=== PATIENT | male | born 1935 | race Caucasian/White ===

== ENCOUNTER → 2017-05-03 11:35 | Outpatient (POV) | payer MEDICARE, OTHER, SELFPAY | PROVIDERS: Visit Provider Nurse Practitioner Acute Care | DX: Z00.00 Encounter for general adult medical examination without abnormal findings (principal) ==

== ENCOUNTER → 2017-05-11 12:06 | Outpatient (CLI) | payer MEDICARE, OTHER, SELFPAY ==
[2017-05-11 12:11] LABS: Microscopic, Urine URINE MICROSCOPIC (MICROSCOPIC)
[2017-05-11 12:29] LABS: Basophils % 0.4 % (0.1-2.0); Eosinophils # 0.1 K/mm3 (0.0-0.4); Eosinophils % 0.9 % (0.1-12.0); Hematocrit 41.5 % (42.0-52.0); Hemoglobin 13.7 g/dL (14.1-18.0); Lymphocytes % 12.6 K/mm3 (10-50); Mean Corpuscular HGB Conc 33.1 g/dL (31.8-35.4); Mean Corpuscular Hemoglobin 29.3 pg (27.0-31.2); Mean Corpuscular Volume 88.7 fl (80-94); Mean Platelet Volume 9.1 fl (7.4-10.4); Monocytes # 0.5 K/mm3 (0.1-1.0); Monocytes % 6.5 % (1.7-9.3); Neutrophils # 6.1 K/mm3 (1.8-7.8); Neutrophils % 79.6 % (37.0-80.0); Platelet Count 214 K/mm3 (142-424); Red Blood Count 4.68 M/mm3 (4.60-6.20); Red Cell Distribution Width 13.3 % (11.5-17.5); White Blood Count 7.7 K/mm3 (4.8-10.8)
[2017-05-11 14:33] LABS: Appearance,Urine CLEAR (Clear); Bilirubin,Urine Negative (Negative); Blood, Urine Negative (Negative); Color,Urine YELLOW (Yellow); Glucose,Urine (UA) Negative (Negative); Ketones,Urine Negative (Negative); Leukocyte Esterase,Urine TRACE (Negative); Nitrate,Urine Negative (Negative); Protein,Urine Negative (Negative); Specific Gravity, Urine 1.025 (1.005-1.030); Urobilinogen,Urine 0.2 EU/dl (0.2)
[2017-05-11 15:39] LABS: Bacteria,Urine 1+ /lpf; RBC,Urine Occasional #/hpf (0-3); Squamous Epithelial Cell,Urine Occasional #/hpf (0-5); WBC,Urine Occasional #/hpf (0-3)
[2017-05-11 15:40] LABS: Hyaline Casts,Urine Occasional #/lpf (0)
[2017-05-11 16:03] LABS: Albumin Level 3.6 gm/dL (3.4-5.0); Anion Gap 15.4 mEq/L (5-15); Blood Urea Nitrogen 23 mg/dL (7-18); Calcium 8.8 mg/dL (8.5-10.1); Carbon Dioxide 23 mmol/L (21.0-32.0); Chloride 103 mmol/L (98-107); Estimated Glomerular Filt Rate 36 ml/min (>60); GFR (African American) 44 ML/MIN (>60); Glucose 105 mg/dL (74-106); Phosphorous 3.7 mg/dL (2.4-4.9); Potassium 4.4 mmoL/L (3.5-5.1); Sodium 137 mmol/L (136-145)
[2017-05-11 16:09] LABS: Creatinine,Urine Random 317 mg/dL (20-320); Total Protein,Urine Random 28.6 mg/dL (0.0-11.9)
[2017-05-12 13:21] LABS: Parathyroid Hormone Intact 41 pg/mL (15-65); Vitamin D 25 Hydroxy 55.7 ng/mL (30.0-100.0)
== END ==
PROVIDERS: Visit Provider Internal Medicine Nephrology
DX: N18.3 Chronic kidney disease, stage 3 (moderate) (principal)
CPT/HCPCS: 36415; 80069; 81001; 82570; 82652; 83970; 84155; 85025

== ENCOUNTER → 2017-06-03 07:52 | Outpatient (CLI) | payer MEDICARE, OTHER, SELFPAY ==
--- NOTE | 2017-06-03 07:56 | NM_ITS ---
History and Indications: Hypertension, tobacco use family history, chest pain shortness of breath and fatigue Procedure: Patient received a 0.4 mg of Lexiscan, resting heart rate was 68 bpm, resting blood pressure 161/72, with Lexiscan maximum heart rate achieved was 89 beats per which is less than 85 predicted heart rate and a blood pressure was 145/76. With Lexiscan complaint of malaise Electrocardiogram: Resting electrocardiogram showed sinus rhythm left bundle-branch block, with Lexiscan less than 1.[address] segment depression noted from the baseline EKG. The EKG portion of the Lexiscan Myoview is nondiagnostic. Cardiac stress and resting SPECT images: Cardiac stress and resting SPECT images were obtained using technetium 99 Myoview 10.6 mCi at rest and 31.9 mCi at stress, gated SPECT further analysis of segmental wall motion and calculation of the ejection fraction also done. Cardiac stress and rest images show a mild fixed defect anteroseptally and inferiorly with normal contractility gated SPECT is likely secondary to left bundle-branch block and soft tissue attenuation, no reversible ischemia seen. Computer derived ejection fraction is 50% with no obvious regional wall motion abnormality, right ventricle is normal size and contractility Conclusion: 1. The EKG portion of the Lexiscan Myoview is nondiagnostic. 2. No obvious scintigraphic evidence of reversible ischemia seen, ejection fraction 50% with no obvious regional wall motion abnormality, right ventricle is normal size and contractility.
--- NOTE | 2017-06-03 11:27 | HMH.ITSHM ---
flomax prilosec d3 amlodipine paxil
== END ==
PROVIDERS: Family Provider Family Medicine; PCP Family Medicine; Visit Provider Physician Assistant
DX: R07.9 Chest pain, unspecified (principal); R06.00 Dyspnea, unspecified
CPT/HCPCS: 78452; 93017; A9502; J2785

== ENCOUNTER → 2017-07-06 12:54 | Outpatient (CLI) | payer MEDICARE, OTHER, SELFPAY ==
--- NOTE | 2017-07-06 13:18 | XR_ITS ---
XR chest 2V HISTORY: ITS.REASON: SHORTNESS OF BREATH ORDERING PHYSICIAN: Prasad Burgos MD PATIENT AGE: 81 years FINDINGS: There is mild cardiomegaly without failure. No lobar consolidation or collapse. On the lateral view there is a nodular density overlying the T5 vertebral body not readily apparent on the frontal view possibly related to a granuloma. There are coronary artery calcifications noted. No acute bony finding. There is hyperinflation with attenuation of peripheral pulmonary vessels suggesting COPD IMPRESSION: 1. COPD with coronary artery disease 2. Possible upper lobe nodule as seen on the lateral view. The chest may confirm. Prior chest CT of 01/23/2015. Show a small calcified granuloma in the right upper lobe posteriorly possibly corresponding to this abnormality however that nodule measured 4 mm. Nodule on today's exam measuring approximate 8 mm. 3. No acute finding
== END ==
PROVIDERS: PCP Family Medicine; Visit Provider Family Medicine
DX: R06.02 Shortness of breath (principal)
CPT/HCPCS: 71046

== ENCOUNTER → 2017-07-20 07:30 | Outpatient (CLI) | payer MEDICARE, OTHER, SELFPAY ==
--- NOTE | 2017-07-20 07:32 | CT_ITS ---
CT chest wo con HISTORY: Follow-up lung nodule ITS.REASON: LUNG NODULE ORDERING PHYSICIAN: Prasad Burgos MD PATIENT AGE: 81 years Technique: Axial images obtained. Sagittal and coronal reformatted images are also generated and reviewed. All CT scans at the facility use one or more dose reduction, viz: automated exposure control; ma/kV adjustment per patient size (including targeted exams where dose is matched to indication; i.e. head); or iterative reconstruction technique. CONTRAST: None COMPARISON: 01/23/2015 FINDINGS: There is vascular ectasia of the great vessels. Extensive coronary artery calcification is present. No evidence of aortic aneurysm or pericardial effusion. There is mild cardiomegaly. No mediastinal or hilar mass or adenopathy. There is hyperinflation with attenuation of peripheral pulmonary vessels consistent with COPD Biapical fibrotic changes are noted there is asymmetric density in the right apex having a similar appearance when compared to the previous exam. There are paraseptal and centrilobular emphysematous changes. There is a 7 x 6 mm lobular nodule in the central aspect of the right upper lobe. This does appear to be containing some peripheral calcification and is not significantly changed.. A 4 mm nodule present in the right upper lobe inferiorly unchanged and a partially calcified 5 mm nodule is present in the right middle lobe laterally unchanged. There is a 3 mm noncalcified nodule in the left upper lobe centrally and a 3 mm nodule in the left upper lobe medially which may contain central calcification unchanged. No new nodules are evident.. No effusions or infiltrates. Upper abdominal images once again show hyperdensity in the posterior aspect of the gallbladder suggesting stones. There is a 7 mm sclerotic focus in the T5 vertebral body which is more prominent. Etiology indeterminate. May be related to bone island or a solitary sclerotic metastatic focus. IMPRESSION: 1. No change in the small pulmonary nodules the largest in the central aspect of the right upper lobe a 7 x 6 mm. This does appear to contain some peripheral calcification and may be due to granuloma 2. COPD with centrilobular and paraseptal emphysematous changes along with biapical fibrosis 3. Enlarging sclerotic focus in the T5 vertebral body which could be due to enlarging bone island or a solitary blastic metastatic focus. 4. Cholelithiasis suspected. 5. Coronary artery disease
== END ==
PROVIDERS: Family Provider Family Medicine; PCP Family Medicine; Visit Provider Family Medicine
DX: R91.1 Solitary pulmonary nodule (principal)
CPT/HCPCS: 71250

== ENCOUNTER → 2017-08-04 08:45 | Outpatient (CLI) | payer MEDICARE, OTHER, SELFPAY ==
--- NOTE | 2017-08-04 08:49 | MR_ITS ---
MR thoracic spine wo con HISTORY: Sclerotic lesion of the thoracic spine ITS.REASON: LESION OF VERTEBRA ORDERING PHYSICIAN: Prasad Burgos MD PATIENT AGE: 81 years Comparison: 07/20/2017 TECHNIQUE: Standard multiplanar multiecho sequences are performed without contrast. 3-D MIP and myelographic images are also rendered and reviewed FINDINGS: There is normal alignment. No fracture or dislocation. No disc herniation or canal stenosis. There is heterogeneous signal intensity within the vertebral bodies consistent with red marrow replacement. There is a T1 and T2 hyperintense lesion involving the T11 vertebral body measuring 17 mm consistent with a light, or lipid rich hemangioma. No acute fracture or compression change. There is a 8mm T1 and T2 hypointense lesion involving the T5 vertebral body corresponding to the abnormality noted on the chest CT. This is without surrounding edema and probably related to a bone island. No other lesions evident within the thoracic spine. IMPRESSION: 1. 8 mm T1 and T2 hypointense lesion of the T5 vertebral body which may be related to a bone island with dense calcification. Consider [address] follow-up to confirm stability. 2. Otherwise essentially negative thoracic spine MRI
== END ==
PROVIDERS: Family Provider Family Medicine; PCP Family Medicine; Visit Provider Family Medicine
DX: M89.9 Disorder of bone, unspecified (principal)
CPT/HCPCS: 72146

== ENCOUNTER → 2017-08-30 10:17 | Outpatient (CLI) | payer MEDICARE, OTHER, SELFPAY | PROVIDERS: Visit Provider Urology | DX: Z12.5 Encounter for screening for malignant neoplasm of prostate (principal); R97.20 Elevated prostate specific antigen [PSA] | CPT/HCPCS: 36415; G0103 ==

== ENCOUNTER → 2018-05-16 11:41 | Outpatient (CLI) | payer MEDICARE, OTHER, SELFPAY ==
[2018-05-16 12:06] LABS: Basophils # 0.1 K/mm3 (0-0.2); Basophils % 0.9 % (0.1-2.0); Eosinophils # 0.3 K/mm3 (0.0-0.4); Eosinophils % 3.5 % (0.1-12.0); Hematocrit 44.9 % (42.0-52.0); Hemoglobin 14.2 g/dL (14.1-18.0); Lymphocytes # 1.3 K/mm3 (0.7-4.5); Lymphocytes % 14.8 % (10-50); Mean Corpuscular HGB Conc 31.7 g/dL (31.8-35.4); Mean Corpuscular Hemoglobin 29.3 pg (27.0-31.2); Mean Corpuscular Volume 92.4 fl (80-94); Monocytes # 0.5 K/mm3 (0.1-1.0); Monocytes % 5.3 % (1.7-9.3); Neutrophils # 6.5 K/mm3 (1.8-7.8); Neutrophils % 75.5 % (37.0-80.0); Platelet Count 232 K/mm3 (142-424); Red Blood Count 4.85 M/mm3 (4.60-6.20); Red Cell Distribution Width 13.5 % (11.5-17.5); White Blood Count 8.6 K/mm3 (4.8-10.8)
[2018-05-16 16:27] LABS: Anion Gap 13.3 mEq/L (5-15); Blood Urea Nitrogen 21 mg/dL (7-18); Calcium 9.1 mg/dL (8.5-10.1); Carbon Dioxide 25 mmol/L (21.0-32.0); Chloride 106 mmol/L (98-107); Creatinine,Serum 1.67 mg/dL (0.70-1.30); Estimated Glomerular Filt Rate 40 ml/min (>60); GFR (African American) 48 ML/MIN (>60); Glucose 98 mg/dL (74-106); Potassium 4.3 mmoL/L (3.5-5.1); Sodium 140 mmol/L (136-145)
== END ==
PROVIDERS: Visit Provider Physician Assistant
DX: N18.3 Chronic kidney disease, stage 3 (moderate) (principal); R06.02 Shortness of breath; I25.119 Atherosclerotic heart disease of native coronary artery with unspecified angina pectoris
CPT/HCPCS: 36415; 80048; 85025

== ENCOUNTER → 2018-05-19 07:07 | Outpatient (CLI) | payer MEDICARE, OTHER, SELFPAY ==
[2018-05-19 08:14] LABS: Basophils # 0.1 K/mm3 (0-0.2); Basophils % 0.9 % (0.1-2.0); Eosinophils # 0.4 K/mm3 (0.0-0.4); Eosinophils % 5.5 % (0.1-12.0); Hematocrit 44.7 % (42.0-52.0); Lymphocytes # 1.3 K/mm3 (0.7-4.5); Lymphocytes % 16.3 % (10-50); Mean Corpuscular HGB Conc 33.6 g/dL (31.8-35.4); Mean Corpuscular Hemoglobin 30.5 pg (27.0-31.2); Mean Corpuscular Volume 90.7 fl (80-94); Mean Platelet Volume 8.1 fl (7.4-10.4); Monocytes # 0.5 K/mm3 (0.1-1.0); Monocytes % 6.5 % (1.7-9.3); Neutrophils # 5.6 K/mm3 (1.8-7.8); Neutrophils % 70.8 % (37.0-80.0); Platelet Count 217 K/mm3 (142-424); Red Blood Count 4.93 M/mm3 (4.60-6.20); Red Cell Distribution Width 13.6 % (11.5-17.5); White Blood Count 7.9 K/mm3 (4.8-10.8)
[2018-05-19 09:42] LABS: Anion Gap 11.5 mEq/L (5-15); Blood Urea Nitrogen 16 mg/dL (7-18); Carbon Dioxide 27 mmol/L (21.0-32.0); Chloride 107 mmol/L (98-107); Creatinine,Serum 1.55 mg/dL (0.70-1.30); Estimated Glomerular Filt Rate 43 ml/min (>60); GFR (African American) 52 ML/MIN (>60); Glucose 122 mg/dL (74-106); Potassium 4.5 mmoL/L (3.5-5.1); Sodium 141 mmol/L (136-145)
== END ==
PROVIDERS: Visit Provider Internal Medicine
DX: Z95.5 Presence of coronary angioplasty implant and graft (principal); I25.10 Atherosclerotic heart disease of native coronary artery without angina pectoris; Z87.891 Personal history of nicotine dependence
CPT/HCPCS: 36415; 80048; 85025

== ENCOUNTER 2018-06-06 14:37 | Outpatient (RCR) | payer MEDICARE, OTHER, SELFPAY | END 2018-09-23 13:16 | disposition home or self-care (01) | LOC: PT 14:37 | PROVIDERS: Visit Provider Internal Medicine | DX: Z95.5 Presence of coronary angioplasty implant and graft (principal) | CPT/HCPCS: 93798 ==

== ENCOUNTER → 2018-06-07 14:37 | Outpatient (CLI) | payer MEDICARE, OTHER, SELFPAY ==
--- NOTE | 2018-06-07 14:38 | CA_ITS ---
PROCEDURE: 2-D M-mode and color Doppler study INDICATIONS FOR THE TEST: Chest pain + COPD Heart Murmur Tobacco Smoking+ Palpitations Fatigue+ Syncope Edema Hypertension+Diabetes Mellitus Rheumatic Fever SOB+[place] Obesity Hyperlipidemia+ Family History HD Additional History CYN, CAD, CKD, STENTS PATIENT INFORMATION HEIGHT: 67 WEIGHT:161 GENDER: Male B/P:140/69 2-D/M-MODE INTERPRETATION: 2-D MEASUREMENTS OBSERVED VALUES IN CMS Right Ventricular Dimension (RVDd) 2.0 Interventricular Septum (Thickness)(IVsd) 1.1 Left Ventricular Internal Dimensions(LVIDd) 5.1 Left Ventricular Posterior Wall (Thickness)(LVPWd) 1.0 Aortic Root 3.3 Aortic Cusp Separation 1.3 Left Atrial Dimensions (LAD) 4.0 2D 1. Left atrium is mildly enlarged, left ventricle is normal size, mild concentric left ventricular hypertrophy, moderately reduced left ventricular systolic function, visually estimated ejection fraction of 35-40%, there is abnormal septal motion. 2. The right atrium and right ventricle are normal size and contractility. 3. The aortic valve is thickened and calcified with mild restriction the leaflet mobility. 4. The mitral and tricuspid valve leaflets are minimally thickened. 5. The pulmonic valve is poorly visualized. 6. No significant pericardial effusion noted. DOPPLER INTERROGATION: 1. The maximum aortic out flow velocity is 2.5 m/s, resulting in a mean gradient across valve of 12 mmHg consistent with mild aortic stenosis, there is no aortic insufficiency. 2. The mitral inflow velocity within normal range, there is no mitral stenosis, there is mild mitral regurgitation, grade 1 diastolic dysfunction seen with tissue Doppler evidence of raised left atrial pressure. 3. There is mild tricuspid regurgitation noted, tricuspid regurgitation jet velocity is inadequate for calculation of the right ventricular systolic pressure. Inferior vena cava is not well visualized. CONCLUSION: 1. Mildly enlarged left atrium, normal left ventricular size, mild concentric left ventricular hypertrophy, moderately reduced left ventricular systolic function, visually estimated ejection fraction 55-40%, there is abnormal septal motion. Grade 1 diastolic dysfunction seen with tissue Doppler evidence of raised left atrial pressure. 2. Thickened and calcified aortic valve with mean gradient across valve of 12 mmHg consistent with mild aortic stenosis, there is no aortic insufficiency. 3. Mild mitral and tricuspid regurgitation 4. No significant pericardial effusion noted.
== END ==
PROVIDERS: PCP Family Medicine; Visit Provider Internal Medicine
DX: R06.02 Shortness of breath (principal)
CPT/HCPCS: 93306

== ENCOUNTER → 2018-06-27 13:33 | Outpatient (CLI) | payer MEDICARE, OTHER, SELFPAY ==
[2018-06-27 13:36] LABS: Microscopic, Urine URINE MICROSCOPIC (MICROSCOPIC)
[2018-06-27 14:11] LABS: Appearance,Urine CLEAR (Clear); Bilirubin,Urine Negative (Negative); Blood, Urine Negative (Negative); Color,Urine YELLOW (Yellow); Glucose,Urine (UA) Negative (Negative); Ketones,Urine Negative (Negative); Leukocyte Esterase,Urine Negative (Negative); Nitrate,Urine Negative (Negative); Protein,Urine Negative (Negative); Urobilinogen,Urine 0.2 EU/dl (0.2)
[2018-06-27 14:29] LABS: Bacteria,Urine 1+ /lpf; Mucus,Urine 1+ /lpf
[2018-06-27 14:39] LABS: Basophils # 0.1 K/mm3 (0-0.2); Eosinophils # 0.4 K/mm3 (0.0-0.4); Eosinophils % 5.8 % (0.1-12.0); Hematocrit 41.3 % (42.0-52.0); Hemoglobin 13.8 g/dL (14.1-18.0); Lymphocytes # 1.2 K/mm3 (0.7-4.5); Lymphocytes % 16.2 % (10-50); Mean Corpuscular HGB Conc 33.5 g/dL (31.8-35.4); Mean Corpuscular Hemoglobin 29.5 pg (27.0-31.2); Mean Corpuscular Volume 88.3 fl (80-94); Mean Platelet Volume 8.1 fl (7.4-10.4); Monocytes # 0.6 K/mm3 (0.1-1.0); Monocytes % 7.6 % (1.7-9.3); Neutrophils # 5.2 K/mm3 (1.8-7.8); Neutrophils % 69.3 % (37.0-80.0); Platelet Count 204 K/mm3 (142-424); Red Blood Count 4.67 M/mm3 (4.60-6.20); Red Cell Distribution Width 13.7 % (11.5-17.5); White Blood Count 7.5 K/mm3 (4.8-10.8)
[2018-06-27 15:25] LABS: Albumin Level 3.5 gm/dL (3.4-5.0); Anion Gap 14.2 mEq/L (5-15); Blood Urea Nitrogen 19 mg/dL (7-18); Calcium 8.8 mg/dL (8.5-10.1); Carbon Dioxide 25 mmol/L (21.0-32.0); Chloride 106 mmol/L (98-107); Creatinine,Serum 1.62 mg/dL (0.70-1.30); Estimated Glomerular Filt Rate 41 ml/min (>60); GFR (African American) 50 ML/MIN (>60); Glucose 99 mg/dL (74-106); Phosphorous 3.4 mg/dL (2.4-4.9); Potassium 4.2 mmoL/L (3.5-5.1); Sodium 141 mmol/L (136-145)
[2018-06-29 06:56] LABS: Parathyroid Hormone Intact 54 pg/mL (15-65)
== END ==
PROVIDERS: Visit Provider Internal Medicine Nephrology
DX: N18.3 Chronic kidney disease, stage 3 (moderate) (principal)
CPT/HCPCS: 36415; 80069; 81001; 83970; 85025

== ENCOUNTER → 2018-08-30 07:27 | Outpatient (CLI) | payer MEDICARE, OTHER, SELFPAY | PROVIDERS: Visit Provider Urology | DX: Z12.5 Encounter for screening for malignant neoplasm of prostate (principal); R97.20 Elevated prostate specific antigen [PSA] | CPT/HCPCS: 36415; 84153 ==

== ENCOUNTER → 2018-08-30 08:11 | Outpatient (POV) | payer MEDICARE, OTHER, SELFPAY | PROVIDERS: Visit Provider Dermatology | DX: Z00.00 Encounter for general adult medical examination without abnormal findings (principal) ==

== ENCOUNTER → 2018-10-24 07:11 | Outpatient (CLI) | payer MEDICARE, OTHER, SELFPAY ==
[2018-10-24 11:00] LABS: Alanine Aminotransferase 25 U/L (12-78); Albumin Level 3.1 gm/dL (3.4-5.0); Alkaline Phosphatase 102 U/L (46-116); Aspartate Amino Transferase 11 U/L (15-37); Bilirubin,Direct 0.1 mg/dL (0.0-0.2); Bilirubin,Indirect 0.3 mg/dL (0.0-0.9); Bilirubin,Total 0.4 mg/dL (0.2-1.0); Chol/HDL Ratio 3.4 (1-3.5); Cholesterol 95 mg/dL (140-200); HDL Cholesterol 28 mg/dL (27-67); LDL Cholesterol 42 mg/dL (0-130); Total Protein,Serum 6.4 gm/dL (6.4-8.2); Triglycerides 123 mg/dL (30-200); VLDL Cholesterol 25 mg/dL (0-40)
== END ==
PROVIDERS: Visit Provider Urology
DX: E78.2 Mixed hyperlipidemia (principal); I10 Essential (primary) hypertension; I25.118 Atherosclerotic heart disease of native coronary artery with other forms of angina pectoris
CPT/HCPCS: 36415; 80061; 80076

== ENCOUNTER → 2019-01-23 08:29 | Outpatient (CLI) | payer MEDICARE, OTHER, SELFPAY ==
--- NOTE | 2019-01-23 08:32 | FL_ITS ---
PROCEDURE: FL BARIUM SWALLOW CLINICAL INDICATION: dysphagia COMPARISON: No exams were available for comparison TECHNIQUE: In the upright position the patient was observed to swallow barium in both the AP and lateral view. The cervical esophagus was examined under fluoroscopy with images obtained. The patient was then placed prone in the right anterior oblique position and was observed to swallow barium with Valsalva technique . FLUOROSCOPY TIME: 35 seconds FINDINGS: There was no evidence of aspiration. There was normal peristalsis. No filling defects or mucosal abnormalities. No masses or strictures. No hiatal hernia evident. IMPRESSION: Negative barium swallow. Dictated by: Zachary Caban MD 01/23/2019 12:14 Electronically signed by Zachary Caban MD in [place] 01/23/2019 12:14
== END ==
PROVIDERS: PCP Family Medicine; Visit Provider Physician Assistant
DX: R13.10 Dysphagia, unspecified (principal)
CPT/HCPCS: 74220

== ENCOUNTER → 2019-09-08 07:06 | Outpatient (CLI) | payer MEDICARE, OTHER, SELFPAY ==
[2019-09-08 11:33] LABS: Prostate Specific Ag Screen 3.8 ng/ml (0.0-4.0)
== END ==
PROVIDERS: Visit Provider Urology
DX: Z12.5 Encounter for screening for malignant neoplasm of prostate (principal); R97.20 Elevated prostate specific antigen [PSA]
CPT/HCPCS: 36415; G0103

== ENCOUNTER → 2019-09-22 07:39 | Outpatient (CLI) | payer MEDICARE, OTHER, SELFPAY ==
--- NOTE | 2019-09-22 07:39 | CA_ITS ---
APPROVED REPORT EXAM: Comprehensive 2D, Doppler, and color-flow Echocardiogram Cant Gang Sawyer: Rosaura Whitten CRT Ht: 5 ft 7 in Wt: 158lbs BSA: 1.83 BP: 135/45 mmHg Indications: , CAD, HTN, HLD, CM 2D Dimensions LVOT 1.38 cm (M/F) 1.5-2.5 M-Mode Dimensions RVDd 2.94 cm (0.9-2.6) LVDd 4.40 cm (3.5-5.7) LVDs 3.67 cm (3.5-5.7) IVSd 1.67 cm (0.6-1.1) PWd 1.16 cm (0.6-1.1) EF (Teich) 35.00% FS 16.60% EDV (Teich) 87.70 mL ESV (Teich) 57.00 mL LV Diastology E/A Ratio 0.60 Aortic Valve LVOT Max 177.00 (70-110 cm/s) LVOT VTI 40.07 cm Mitral Valve MV A Velocity 93.00 (40-130 cm/s) Left Ventricle Left atrium is mildly enlarged, left ventricle is normal size, mild concentric left ventricular hypertrophy, visually estimated ejection fraction approximately 40%, there is abnormal septal motion. Grade 1 diastolic dysfunction seen without tissue Doppler evidence of raise left atrial pressure. Right Ventricle Right atrium and right ventricular normal size and contractility. Aortic Valve Aortic valve is thickened and calcified, the mean gradient across valve is 12 mmHg, represents mild aortic stenosis, aortic valve area is not accurately calculated. There is no significant aortic insufficiency. Mitral Valve Mitral valve is minimally thickened, there is mild mitral regurgitation Tricuspid Valve Tricuspid valve grossly normal, there is mild tricuspid regurgitation. Pulmonic Valve Pulmonic valve is poorly visualized. Great Vessels Aortic root is normal size. Pericardium No significant pericardial effusion noted. Conclusion 1. Mildly enlarged left atrium, normal left ventricular size, mild concentric left ventricular hypertrophy, visually estimated ejection fraction 40%, there is abnormal septal motion, grade 1 diastolic dysfunction seen without tissue Doppler evidence of raise left atrial pressure. 2. Thickened and calcified aortic valve with mild aortic stenosis, there is no aortic insufficiency 3. Mild mitral and tricuspid regurgitation. 4. No significant pericardial effusion noted. Electronically signed by : Kushal Luna, 09/22/2019 10:35:55
--- NOTE | 2019-09-22 07:39 | CA_ITS ---
APPROVED REPORT Scientific Research Associate: Morelia Gudino RVT Laterality: Bilateral Study Quality: Good Indications: left carotid bruit, Carotid stenosis Risk Factors Hypertension: Hyperlipidemia Smoking Doppler Spectral Velocity Analysis ECA (R) 150.00/6.10 cm/s dICA (L) 98.20/27.60 cm/s Mallory (L) 104.40/30.10 cm/s dICA (R) 100.50/30.10 cm/s pICA (L) 68.20/21.00 cm/s Mallory (R) 81.40/21.70 cm/s pICA (R) 103.50/24.30 cm/s dCCA (L) 55.40/11.20 cm/s pCCA (L) 66.70/10.50 cm/s dCCA (R) 60.80/8.60 cm/s pCCA (R) 54.30/8.10 cm/s Vert (L) 77.30/7.60 cm/s Vert (R) 70.10/21.50 cm/s ICA/CCA 1.88 ICA/CCA 1.70 Findings Study suggests 20-49% stenosis of the right internal cartoid artery unchanged from the 12/22/16 study. Study suggests 20-49% (upper end of scale) of the left internal cartoid artery unchanged from the 12/22/16 study. Antegrade flow seen bilateral vertebral arteries. Conclusion Study suggests 20-49% stenosis of the right internal cartoid artery unchanged from the 12/22/16 study. Study suggests 20-49% (upper end of scale) of the left internal cartoid artery unchanged from the 12/22/16 study. Antegrade flow seen bilateral vertebral arteries. Electronically signed by : Zachary Caban MD 09/22/2019 17:46:43
== END ==
PROVIDERS: PCP Family Medicine; Visit Provider Nurse Practitioner Family
DX: E78.5 Hyperlipidemia, unspecified (principal); I10 Essential (primary) hypertension; I25.10 Atherosclerotic heart disease of native coronary artery without angina pectoris; R01.1 Cardiac murmur, unspecified; R09.89 Other specified symptoms and signs involving the circulatory and respiratory systems
CPT/HCPCS: 93306; 93880

== ENCOUNTER → 2019-12-20 06:59 | Outpatient (CLI) | payer MEDICARE, OTHER, SELFPAY ==
[2019-12-20 09:31] LABS: Alanine Aminotransferase 18 U/L (12-78); Aspartate Amino Transferase 22 U/L (17-59); Bilirubin,Unconjugated 0.8 mg/dL (0.0-1.1)
[2019-12-20 09:32] LABS: Albumin Level 3.3 g/dl (3.5-5.0); Alkaline Phosphatase 76 U/L (38-126); Bilirubin,Direct 0.1 mg/dl (0.0-0.4); Bilirubin,Indirect 0.8 mg/dL (0.0-0.9); Bilirubin,Total 0.9 mg/dl (0.2-1.3); Cholesterol 105 mg/dl (140-200); HDL Cholesterol 35 mg/dl (40-60); Total Protein,Serum 6.1 g/dl (6.3-8.2); Triglycerides 73 mg/dl (30-150); VLDL Cholesterol 15 mg/dL (0-40)
[2019-12-20 09:43] LABS: Direct LDL Cholesterol 50.74 mg/dL (100-129)
== END ==
PROVIDERS: Visit Provider Nurse Practitioner Family
DX: E78.5 Hyperlipidemia, unspecified (principal); I10 Essential (primary) hypertension; I25.10 Atherosclerotic heart disease of native coronary artery without angina pectoris; I35.0 Nonrheumatic aortic (valve) stenosis; N18.9 Chronic kidney disease, unspecified; R09.89 Other specified symptoms and signs involving the circulatory and respiratory systems; Z87.891 Personal history of nicotine dependence
CPT/HCPCS: 36415; 80061; 80076

== ENCOUNTER → 2020-08-06 07:05 | Outpatient (CLI) | payer MEDICARE, OTHER, SELFPAY ==
[2020-08-06 07:10] LABS: Microscopic, Urine URINE MICROSCOPIC (MICROSCOPIC)
[2020-08-06 07:34] LABS: Appearance,Urine CLEAR (Clear); Bilirubin,Urine Negative (Negative); Blood, Urine Negative (Negative); Color,Urine YELLOW (Yellow); Glucose,Urine (UA) Negative (Negative); Ketones,Urine Negative (Negative); Leukocyte Esterase,Urine Negative (Negative); Nitrate,Urine Negative (Negative); Protein,Urine Negative (Negative); Specific Gravity, Urine 1.025 (1.005-1.030); Urobilinogen,Urine 0.2 EU/dl (0.2)
[2020-08-06 07:36] LABS: Squamous Epithelial Cell,Urine Occasional #/hpf (0-5)
[2020-08-06 07:58] LABS: Creatinine,Urine Random 173 mg/dL (Not Estab.)
[2020-08-06 08:00] LABS: Basophils # 0.1 K/mm3 (0-0.2); Basophils % 1.3 % (0.1-2.0); Eosinophils # 0.4 K/mm3 (0.0-0.4); Eosinophils % 6.5 % (0.1-12.0); Hematocrit 42.9 % (42.0-52.0); Hemoglobin 14.3 g/dL (14.1-18.0); Lymphocytes # 1.4 K/mm3 (0.7-4.5); Lymphocytes % 20.8 % (10-50); Mean Corpuscular HGB Conc 33.4 g/dL (31.8-35.4); Mean Corpuscular Hemoglobin 29.5 pg (27.0-31.2); Mean Corpuscular Volume 88.3 fl (80-94); Mean Platelet Volume 8.7 fl (7.4-10.4); Monocytes # 0.6 K/mm3 (0.1-1.0); Monocytes % 9.3 % (1.7-9.3); Neutrophils # 4.3 K/mm3 (1.8-7.8); Neutrophils % 62.2 % (37.0-80.0); Platelet Count 201 K/mm3 (142-424); Red Blood Count 4.86 M/mm3 (4.60-6.20); Red Cell Distribution Width 13.4 % (11.5-17.5); White Blood Count 6.9 K/mm3 (4.8-10.8)
[2020-08-06 08:04] LABS: Albumin Level 3.7 g/dl (3.5-5.0); Anion Gap 11.2 mEq/L (5-15); Blood Urea Nitrogen 24 mg/dl (9-20); Calcium 8.7 mg/dl (8.4-10.2); Carbon Dioxide 21 mmol/L (22.0-30.0); Chloride 112 mmol/L (98-107); Estimated Glomerular Filt Rate 45 ml/min (>60); GFR (African American) 54 ML/MIN (>60); Glucose 112 mg/dl (74-100); Phosphorous 3.9 mg/dl (2.5-4.5); Potassium 4.2 mmoL/L (3.5-5.1); Sodium 140 mmol/L (136-145)
[2020-08-06 08:15] LABS: Intact Parathyroid Hormone 69.3 pg/mL (7.5-53.5)
== END ==
PROVIDERS: Visit Provider Hospitalist
DX: N18.30 Chronic kidney disease, stage 3 unspecified (principal); R80.9 Proteinuria, unspecified; E55.9 Vitamin D deficiency, unspecified
CPT/HCPCS: 36415; 80069; 81001; 82306; 82570; 83970; 84155; 85025

== ENCOUNTER → 2020-09-12 07:02 | Outpatient (CLI) | payer MEDICARE, OTHER, SELFPAY ==
[2020-09-12 14:56] LABS: Prostate Specific Ag, Diagnost 4.13 ng/ml (0.0-4.0)
== END ==
PROVIDERS: Visit Provider Urology
DX: R97.20 Elevated prostate specific antigen [PSA] (principal)
CPT/HCPCS: 36415; 84153

== ENCOUNTER → 2020-09-26 14:43 | Outpatient (CLI) | payer MEDICARE, OTHER, SELFPAY ==
--- NOTE | 2020-09-26 15:06 | XR_ITS ---
PROCEDURE: XR CHEST 2V CLINICAL HISTORY: COUGH, WEAKNESS, CHEST PAIN IN ADULT COMPARISON: CR CXR2V XR chest 2V from 07/06/[address] chest wo con from 07/20/2017 FINDINGS: Borderline cardiomegaly without failure. Coronary artery calcifications. 9 mm right suprahilar nodule. COPD changes. 14 mm opacity is present overlying the T5 vertebral body and may be due to a bone island. There is increased density in the lung base posteriorly suggesting infiltrate possibly on the right. IMPRESSION: 1. Indeterminate right upper lobe nodule. Consider CT for further evaluation. 2. Right lower lobe pneumonia Dictated by: Zachary Caban MD 09/26/2020 15:45 Zachary Caban MD in [place] 09/26/2020 15:45
[2020-09-26 15:18] LABS: Basophils % 0.4 % (0.1-2.0); Eosinophils % 0.5 % (0.1-12.0); Hematocrit 43.3 % (42.0-52.0); Hemoglobin 15.3 g/dL (14.1-18.0); Lymphocytes # 0.7 K/mm3 (0.7-4.5); Lymphocytes % 10.5 % (10-50); Mean Corpuscular HGB Conc 35.3 g/dL (31.8-35.4); Mean Corpuscular Hemoglobin 30.2 pg (27.0-31.2); Mean Corpuscular Volume 85.5 fl (80-94); Mean Platelet Volume 9.4 fl (7.4-10.4); Monocytes # 0.3 K/mm3 (0.1-1.0); Neutrophils # 5.5 K/mm3 (1.8-7.8); Neutrophils % 83.6 % (37.0-80.0); Platelet Count 126 K/mm3 (142-424); Red Blood Count 5.07 M/mm3 (4.60-6.20); Red Cell Distribution Width 13.9 % (11.5-17.5); White Blood Count 6.6 K/mm3 (4.8-10.8)
[2020-09-26 16:00] LABS: Chloride 110 mmol/L (98-107); Potassium 4.2 mmoL/L (3.5-5.1); Sodium 141 mmol/L (136-145)
[2020-09-26 16:03] LABS: Alanine Aminotransferase 40 U/L (12-78); Albumin Level 3.9 g/dl (3.5-5.0); Albumin/Globulin Ratio 1.3 (1.1-1.8); Alkaline Phosphatase 82 U/L (38-126); Anion Gap 19.2 mEq/L (5-15); Aspartate Amino Transferase 47 U/L (17-59); Bilirubin,Total 0.5 mg/dl (0.2-1.3); Blood Urea Nitrogen 47 mg/dl (9-20); Calcium 8.5 mg/dl (8.4-10.2); Carbon Dioxide 16 mmol/L (22.0-30.0); Estimated Glomerular Filt Rate 21 ml/min (>60); GFR (African American) 25 ML/MIN (>60); Glucose 158 mg/dl (74-100); Total Protein,Serum 6.9 g/dl (6.3-8.2)
[2020-09-26 16:14] LABS: Troponin I 0.07 ng/ml (0.00-0.034)
[2020-09-26 16:33] LABS: Thyroid Stimulating Hormone 3.46 uIU/mL (0.465-4.68)
== END ==
PROVIDERS: PCP Family Medicine; Visit Provider Nurse Practitioner Family
DX: R07.9 Chest pain, unspecified (principal); R05 Cough; R10.9 Unspecified abdominal pain; R19.7 Diarrhea, unspecified; R53.1 Weakness
CPT/HCPCS: 36415; 71046; 80053; 84443; 84484; 85025

== ENCOUNTER → 2020-09-27 06:59 | Outpatient (CLI) | payer MEDICARE, OTHER, SELFPAY ==
[2020-09-27 10:10] LABS: Adenovirus F 40/41, stool Not Detected (NotDetected); Astrovirus Not Detected (NotDetected); Campylobacter Not Detected (NotDetected); Clostridium Difficile A/B, PCR Not Detected (NotDetected); Cryptosporidium Not Detected (NotDetected); Cyclospora Cayetanesis Not Detected (NotDetected); Entamoeba histolytica Not Detected (NotDetected); Enteroaggregative E coli Not Detected (NotDetected); Enterotoxigenic E coli Not Detected (NotDetected); Giardia lamblia Not Detected (NotDetected); Norovirus Not Detected (NotDetected); Plesimonas Shigalloides, PCR Not Detected (NotDetected); Rotavirus A Not Detected (NotDetected); Salmonella, PCR Not Detected (NotDetected); Sapovirus Not Detected (NotDetected); Shiga-like toxin E coli Not Detected (NotDetected); Shigella Enterovasive E coli Not Detected (NotDetected); Vibrio Cholerae Not Detected (NotDetected); Vibrio, PCR Not Detected (NotDetected); Yersinia Entercolitica, PCR Not Detected (NotDetected)
[2020-09-27 10:15] LABS: Enteropathogenic E coli Detected (NotDetected)
== END ==
PROVIDERS: Visit Provider Nurse Practitioner Family
DX: R19.7 Diarrhea, unspecified (principal)
CPT/HCPCS: 87506

== ENCOUNTER 2020-09-29 21:19 | Inpatient (IN) | payer MEDICARE, OTHER, SELFPAY ==
[2020-09-29] VITALS (7 sets, daily range): BP systolic 129–150; BP diastolic 58–73; PULSE 77–94; RESP 15–21; TEMP 36.4–36.8; O2SAT 93–96; BMI 24.7; BMI 23.2
--- NOTE | 2020-09-29 21:43 | XR_ITS ---
PROCEDURE INFORMATION: Exam: XR Chest Exam date and time: 09/29/2020 9:43 PM Age: 85 years old Clinical indication: Patient HX: Cough, weakness TECHNIQUE: Imaging protocol: XR of the chest. Views: 2 views. COMPARISON: CR XR CHEST 2V 09/26/2020 3:11 PM FINDINGS: Lungs: There are mild perihilar and basilar infiltrates consistent with atelectasis versus early pneumonitis. Indeterminate 10 x 12 mm right upper lobe pulmonary nodule. Pleural spaces: There is no pleural effusion or pneumothorax. Heart/Mediastinum: There is no cardiomegaly or overt congestive failure. Bones/joints: Bones are demineralized but grossly intact. IMPRESSION: 1. Mild perihilar and basilar infiltrates. 2. Indeterminate 10 x 12 mm right upper lobe pulmonary nodule. Correlation with a nonemergent chest CT advised.
--- NOTE | 2020-09-29 21:43 | ECG_ITS ---
APPROVED REPORT Exam: Resting ECG HR:87 bpm ECG Measurements Heart Rate 87 AXES GA 138 P 64 QRSd 148 QRS 78 QT 402 T -18 QTc 483 Conclusion Normal sinus rhythm Left bundle branch block Abnormal ECG Electronically signed by : Prasad Adam, 09/30/2020 22:11:01
--- NOTE | 2020-09-29 21:43 | HMH.EDWEAK ---
ED Disposition Clinical Impression: COVID-19 with pulmonary comorbidity Chronic kidney disease Qualifiers: Chronic kidney disease stage: stage 4 (severe) Qualified Code(s): N18.4 - Chronic kidney disease, stage 4 (severe) Disposition: Admitted as Observation Condition on Discharge: Fair - Critical Care Critical Care Time: No Attestation: On 09/29/20, the high probability of a clinically significant, sudden or life threatening deterioration of the following system(s) required my full and direct attention, intervention and personal management. The time I documented below is in addition to time spent performing reported procedures but includes the following listed in this critical care notation. Medical Decision Making - Medical Records Medical records reviewed: Yes: I reviewed the patient's medical records. - Long Inquiry Pt receiving controlled substance: No Vital Signs: 09/29/20 21:21 09/29/20 22:00 09/29/20 22:08 Temperature 97.5 F L Temperature Source Oral Pulse Rate 82 77 Pulse Rate [Right Radial] 83 Respiratory Rate 21 16 Blood Pressure 129/59 L Blood Pressure [Right Arm] 137/62 Blood Pressure Mean [Right Arm] 87 Blood Pressure Source [Right Arm] Automatic Cuff Blood Pressure Position [Right Arm] Sitting 02 Sat by Pulse Oximetry 94 L 96 Oxygen Delivery Method Room Air 09/29/20 22:30 Temperature Temperature Source Pulse Rate 88 Pulse Rate [Right Radial] Respiratory Rate 15 Blood Pressure 146/58 H Blood Pressure [Right Arm] Blood Pressure Mean [Right Arm] Blood Pressure Source [Right Arm] Blood Pressure Position [Right Arm] 02 Sat by Pulse Oximetry 95 Oxygen Delivery Method Room Air - Lab Data Lab results reviewed: Yes: I reviewed the patient's lab results. Lab Results 09/29/20 21:30: WBC 3.9 L, RBC 5.23, Hgb 15.4, Hct 45.4, MCV 87.0, MCH 29.6, MCHC 34.0, RDW 14.0, Plt Count 161 D, MPV 9.3, Neut % (Auto) 71.5, Lymph % (Auto) 17.9, Hoke % (Auto) 9.2, Eos % (Auto) 0.2, Baso % (Auto) 1.2, Neut # (Auto) 2.8, Lymph # (Auto) 0.7, Hoke # (Auto) 0.4, Eos # (Auto) 0.0, Baso # (Auto) 0.1, ESR 25 H 09/29/20 21:30: Sodium 137, Potassium 4.4, Chloride 109 H, Carbon Dioxide 17 L, Anion Gap 15.4 H, BUN 39 H, Creatinine 2.30 H, Estimated Creat Clear 24, Estimated GFR 27 L, Est GFR ( Amer) 33 L, Glucose 118 H, Calcium 8.8, Total Bilirubin 0.7, Direct Bilirubin 0.5 H, Conjugated Bilirubin 0.0, Indirect Bilirubin 0.2, Unconjugated Bilirubin 0.2, AST 67 H, ALT 43, Alkaline Phosphatase 75, Troponin I 0.07 H, C-Reactive Protein 14.9 H, Total Protein 7.0, Albumin 3.9, Procalcitonin 0.199 09/29/20 21:30: SARS-CoV-2 (PCR) Detected A, Influenza A Untype (PCR) Not detected, Influenza Type B (PCR) Not detected Result diagrams: 09/29/20 21:30 09/29/20 21:30 Orders (Tests/Meds): ED MEDICATIONS Generic Name Dose Route Start Last Admin Trade Name Freq PRN Reason Stop Dose Admin Sodium Chloride 1,000 mls @ 999 mls/hr 09/29/20 21:45 09/29/20 21:49 Sod Chlor 0.9% 1000ml Bag IV 09/29/20 22:45 999 mls/hr .Q1H1M MINE Administration Sodium Chloride 3 ml 09/29/20 21:50 Sodium Chloride 3% 15ml Neb 10/29/20 21:49 ONCE PRN INDUCE SPUTUM COLLECTION Discontinued Medications Generic Name Dose Route Start Last Admin Trade Name Freq PRN Reason Stop Dose Admin Albuterol/Ipratropium 3 ml 09/29/20 21:44 09/29/20 22:07 Ipratropium/Albuterol 3 Ml Neb IH 09/29/20 21:45 3 ml ONCE ONE Administration Dexamethasone Sodium Phosphate 10 mg 09/29/20 22:49 09/29/20 22:51 Dexamethasone 4mg/Ml 5ml Mdv IV 09/29/20 22:50 10 mg ONCE ONE Administration ORDERS Category Date Time Status Troponin I Q3H Lab 09/30/20 00:45 Ordered Troponin I Q3H Lab 09/30/20 03:45 Ordered Sputum Culture & Gram Stain Stat Micro 09/29/20 21:50 Ordered - Radiology Data #1 Image(s): Chest Image Reviewed: Yes I reviewed the patient's radiology image, Yes
[2020-09-29 21:50] LABS: Influenza A, PCR Not Detected (NotDetected); Influenza B, PCR Not Detected (NotDetected)
--- NOTE | 2020-09-29 21:51 | PC.NURSE ---
Pt to rad.
--- NOTE | 2020-09-29 21:57 | PC.NURSE ---
Pt returned from rad. RT at bedside
[2020-09-29 22:06] LABS: Alanine Aminotransferase 43 U/L (12-78); Albumin Level 3.9 g/dl (3.5-5.0); Alkaline Phosphatase 75 U/L (38-126); Anion Gap 15.4 mEq/L (5-15); Aspartate Amino Transferase 67 U/L (17-59); Bilirubin,Direct 0.5 mg/dl (0.0-0.4); Bilirubin,Indirect 0.2 mg/dL (0.0-0.9); Bilirubin,Total 0.7 mg/dl (0.2-1.3); Bilirubin,Unconjugated 0.2 mg/dL (0.0-1.1); Blood Urea Nitrogen 39 mg/dl (9-20); Calcium 8.8 mg/dl (8.4-10.2); Carbon Dioxide 17 mmol/L (22.0-30.0); Chloride 109 mmol/L (98-107); Creatinine Clearance Estimated 24 mL/min (50-200); Estimated Glomerular Filt Rate 27 ml/min (>60); GFR (African American) 33 ML/MIN (>60); Glucose 118 mg/dl (74-100); Potassium 4.4 mmoL/L (3.5-5.1); Sodium 137 mmol/L (136-145)
[2020-09-29 22:11] LABS: Basophils # 0.1 K/mm3 (0-0.2); Basophils % 1.2 % (0.1-2.0); C-Reactive Protein 14.9 mg/L (0-4); Eosinophils % 0.2 % (0.1-12.0); Hematocrit 45.4 % (42.0-52.0); Hemoglobin 15.4 g/dL (14.1-18.0); Lymphocytes # 0.7 K/mm3 (0.7-4.5); Lymphocytes % 17.9 % (10-50); Mean Corpuscular Hemoglobin 29.6 pg (27.0-31.2); Mean Platelet Volume 9.3 fl (7.4-10.4); Monocytes # 0.4 K/mm3 (0.1-1.0); Monocytes % 9.2 % (1.7-9.3); Neutrophils # 2.8 K/mm3 (1.8-7.8); Neutrophils % 71.5 % (37.0-80.0); Platelet Count 161 K/mm3 (142-424); Red Blood Count 5.23 M/mm3 (4.60-6.20); White Blood Count 3.9 K/mm3 (4.8-10.8)
[2020-09-29 22:19] LABS: Coronavirus 19, PCR Detected (NotDetected)
[2020-09-29 22:25] LABS: Procalcitonin 0.199 ng/mL (0.0-2.0)
[2020-09-29 22:39] LABS: Troponin I 0.07 ng/ml (0.00-0.034)
--- NOTE | 2020-09-29 22:43 | PC.NURSE ---
Dr Aubrey wharton.
--- NOTE | 2020-09-29 22:49 | PC.NURSE ---
Dr Andrea speaking with Dr Burgos
[2020-09-29 22:52] LABS: Erythrocyte Sedimentation Rate 25 mm/hr (0-20)
--- NOTE | 2020-09-29 23:36 | PC.NURSE ---
Report called to KELI Enriquez at this time.
--- NOTE | 2020-09-29 23:58 | PC.NURSE ---
PT ARRIVED TO FLOOR VIA W/C FROM ED W/STAFF AT [id number]
[2020-09-30] VITALS: BP 134/73; PULSE 95; RESP 20; TEMP 37.3; O2SAT 93
--- NOTE | 2020-09-30 03:13 | PC.NURSE ---
A&OX4. PT TOLERATING RA WELL, O2 SAT IN LOW TO MID 90S. PT HAS NO C/O PAIN THUS FAR. PT HAS DRY INTERMITTENT COUGH. PT UP WITH STANDBY ASSIST IN ROOM, IS VISIBLY WEAK. PT RESTING IN BED MAJORITY OF SHIFT. IV FLUIDS CONTINUING AT 50ML/HR. NO C/O THUS FAR, PRECAUTIONS IN PLACE. VSS WILL CONTINUE TO MONITOR.
[2020-09-30 03:30] VITALS: BP 133/68; PULSE 90; RESP 18; TEMP 36.8; O2SAT 93
[2020-09-30 06:51] LABS: Mean Platelet Volume 9.1 fl (7.4-10.4); Monocytes # 0.1 K/mm3 (0.1-1.0)
[2020-09-30 07:02] LABS: Basophils % 0.9 % (0.1-2.0); Eosinophils % 0.2 % (0.1-12.0); Hematocrit 39.8 % (42.0-52.0); Lymphocytes # 0.4 K/mm3 (0.7-4.5); Lymphocytes % 23.5 % (10-50); Mean Corpuscular HGB Conc 33.8 g/dL (31.8-35.4); Mean Corpuscular Hemoglobin 29.3 pg (27.0-31.2); Mean Corpuscular Volume 86.8 fl (80-94); Monocytes % 6.5 % (1.7-9.3); Neutrophils # 1.1 K/mm3 (1.8-7.8); Platelet Count 146 K/mm3 (142-424); Red Blood Count 4.59 M/mm3 (4.60-6.20); Red Cell Distribution Width 13.9 % (11.5-17.5); White Blood Count 1.6 K/mm3 (4.8-10.8)
[2020-09-30 07:03] LABS: Hemoglobin 13.4 g/dL (14.1-18.0)
[2020-09-30 07:04] LABS: Anion Gap 12.2 mEq/L (5-15); Blood Urea Nitrogen 32 mg/dl (9-20); Carbon Dioxide 13 mmol/L (22.0-30.0); Chloride 115 mmol/L (98-107); Creatinine Clearance Estimated 31 mL/min (50-200); Estimated Glomerular Filt Rate 39 ml/min (>60); GFR (African American) 47 ML/MIN (>60); Glucose 151 mg/dl (74-100); Magnesium 1.9 mg/dl (1.6-2.3); Potassium 4.2 mmoL/L (3.5-5.1); Sodium 136 mmol/L (136-145)
--- NOTE | 2020-09-30 07:34 | P.CONPHA_ITS ---
[facility] Pharmacy VTE Monitoring - Patient Demographics Admission date: 09/29/20 Report Date: 09/30/20 Time: 07:34 Allergies/Adverse Reactions: Patient Allergies ciprofloxacin Allergy (Unknown, Verified 09/19/20 09:00) PT STATES NUMEROUS MEDS NOT SUPPOSED TO TAKE Allergy (Unknown, Uncoded 09/19/20 09:00) Height: 1.7 m Weight: 67.132 kg Patient Problems: Current Active Problems COVID-19 with pulmonary comorbidity (Acute) Chronic kidney disease (Chronic) - VTE Risk Labs: VTE Related Lab Results Hgb 13.4 g/dL (14.1-18.0) L D 09/30/20 06:19 Hct 39.8 % (42.0-52.0) L 09/30/20 06:19 Plt Count 146 K/mm3 (142-424) 09/30/20 06:19 BUN 32 mg/dl (9-20) H 09/30/20 06:19 Creatinine 1.70 mg/dl (0.66-1.25) H D 09/30/20 06:19 Estimated Creat Clear 31 mL/min (50-200) 09/30/20 06:19 - Prophylaxis VTE Prophylaxis Ordered?: Yes Types of VTE Prophylaxis: TEDS Knee High Location of Applied Device: Bilateral Lower Extremeties
--- NOTE | 2020-09-30 07:39 | HMH.HP ---
*Admission Date: 09/29/20 *Chief complaint: Weakness *History of present illness: 85-year-old male presented to the emergency department with family due to profound weakness with difficulty ambulating throughout the day. On September 26 patient been seen in the office and was diagnosed with right lower lobe pneumonia confirmed on chest x-ray. Patient was started on Levaquin at that time. On follow-up on September 28 patient had noted improvement already in how he felt overall. Patient was also noted to have mild acute kidney injury on labs. Patient states Wednesday was unremarkable and then Wednesday he felt profoundly weak with difficulty ambulating. Patient was a fall risk. His condition had worsened so acutely that family brought him to the emergency department. In the ER patient underwent repeat evaluation with chest x-ray now showing perihilar hilar infiltrates bilaterally. Patient's Covid test was also positive. At this point patient's was also seen and her Covid test was also positive. Patient was admitted for observation and monitoring This morning the patient reports feeling better. He denies shortness of breath. His cough continues to improve. This morning he has been able to ambulate independently [facility] History I have reviewed the patient's past medical history: Yes Medical History: Reports:: Cancer, Cardiomyopathy, Carotid Stenosis, Coronary Artery Disease, Hyperlipidemia, Hypertension Denies:: Diabetes Mellitus Type 1, Diabetes Mellitus Type 2 *Have you ever received a pneumonia vaccine?: No *Have you received a flu vaccine this season?: No Other Surgeries: Yes: No Previous Surgery, Cancer Surgery, Cardiac Catheterization, Coronary Stent, Skin Cancer Excision Amputation: No Fractures: No - *Social History Smoking Status: Current every day smoker Tobacco Type: cigarettes # Packs/Day (cigarettes): 1 Alcohol Intake: never Alcohol Intake Frequency:: other Substance Use Type: denies use *Occupational Status:: retired Household Members: spouse *Travel in the last 8 weeks: None Family Hx:: No significant family history Review of Systems - Constitutional Reports anorexia, Reports body ache(s), Reports lack of energy - Eyes Denies blurry vision - ENT Reports abnormal hearing - *Cardiovascular Denies chest pain, Denies chest pain at rest, Denies chest pain with activity, Denies shortness of breath with activity, Denies generalized swelling - *Respiratory Denies chest congestion, Denies cough, Denies shortness of breath - *Gastrointestinal Denies abdominal pain - *Genitourinary Denies difficulty urinating - *Musculoskeletal Denies abnormal walking - Integumentary/Breasts Denies hair loss - *Neurologic Denies localized weakness, Denies headache(s), Denies seizure-like activity - Psychiatric Denies lack of enjoyment - Endocrine Denies excessive sweating Meds Home Medications Medication Instructions Recorded Confirmed Type finasteride 5 mg tablet 5 mg PO DAILY tab 09/07/17 09/29/20 History aspirin 81 mg tablet,delayed 81 mg PO DAILY 05/16/18 09/29/20 History release tamsulosin 0.4 mg capsule 0.4 mg PO DAILY cap 05/16/18 09/29/20 History amlodipine 5 mg tablet 2.5 mg PO DAILY tab 05/31/18 09/29/20 History atorvastatin 40 mg tablet 40 mg PO HS #90 tab 02/07/20 09/29/20 Rx Isosorbide Mononitrate [Isosorbide 30 mg PO DAILY 09/29/20 09/29/20 History Mononitrate ER] atenoloL [Atenolol 50mg Tab] 50 mg PO DAILY 09/29/20 09/29/20 History levoFLOXacin [Levaquin 500mg 500 mg PO DAILY 09/29/20 09/29/20 History tab] Allergies Allergy/AdvReac Type Severity Reaction Status Date / Time ciprofloxacin Allergy Unknown Verified 09/19/20 09:00 PT STATES NUMEROUS MEDS NOT Allergy Unknown Uncoded 09/19/20 09:00 SUPPOSED TO TAKE Exam Vital signs and Labs for Last 24 Hours: Temp Pulse Resp BP Pulse Ox 98.3 F 90 18 133/68 93 L 09/30/20 03:30 09/30/20 03:30 09/30/20 03:30
[2020-09-30 07:57] VITALS: BMI 23.1
[2020-09-30 08:00] VITALS: BP 150/78; PULSE 89; RESP 20; TEMP 36.8; O2SAT 93
[2020-09-30 09:29] LABS: Calcium 7.9 mg/dl (8.4-10.2)
[2020-09-30 15:35] VITALS: BP 124/57; PULSE 83; RESP 20; TEMP 36.9; O2SAT 97
--- NOTE | 2020-09-30 16:09 | PC.NURSE ---
Pt has been pleasant and cooperative this shift. A&O X4. No complaints of pain or SOA. Pt is on room air with sats. >90%. Lung sounds reveal expiratory rhonchi. No edema noted. Skin is C/D/I. Pt ambulates to/from the bathroom and throughout the room independently. Pt also sat up in the recliner for a couple of hours this shift. Pt voids clear, yellow urine without issue. 1 large, soft, brown BM today. Pt has been instructed to provide a sputum sample and a specimen cup is at bedside. 20 G peripheral IV in the RT forearm is patent and SL. VSS. Call light within reach. Will continue to monitor.
[2020-09-30 20:00] VITALS: BP 140/64; PULSE 76; RESP 18; O2SAT 95
[2020-09-30 23:47] VITALS: BP 101/71; PULSE 71; RESP 18; TEMP 36.6; O2SAT 95
[2020-10-01 03:50] VITALS: BP 142/72; PULSE 70; RESP 18; TEMP 36.3; O2SAT 95
[2020-10-01 07:15] LABS: Basophils % 0.4 % (0.1-2.0); Eosinophils % 0.2 % (0.1-12.0); Hematocrit 41.4 % (42.0-52.0); Lymphocytes # 0.7 K/mm3 (0.7-4.5); Lymphocytes % 11.1 % (10-50); Mean Corpuscular HGB Conc 33.7 g/dL (31.8-35.4); Mean Corpuscular Hemoglobin 29.2 pg (27.0-31.2); Mean Corpuscular Volume 86.7 fl (80-94); Mean Platelet Volume 9.2 fl (7.4-10.4); Monocytes # 0.4 K/mm3 (0.1-1.0); Monocytes % 6.2 % (1.7-9.3); Neutrophils # 5.5 K/mm3 (1.8-7.8); Neutrophils % 82.2 % (37.0-80.0); Platelet Count 175 K/mm3 (142-424); Red Blood Count 4.78 M/mm3 (4.60-6.20); Red Cell Distribution Width 13.9 % (11.5-17.5); White Blood Count 6.7 K/mm3 (4.8-10.8)
--- NOTE | 2020-10-01 07:36 | HMH.ACPN2 ---
Internal Medicine - PN: Subj *Date: 10/01/20 *Time: 07:36 Interval history: Patient continues to deny significant shortness of breath. He reports he is still feeling weak when ambulating. He has not required any assistance but admits he is still unsteady . Exam Vital signs and Labs for Last 24 Hours: Temp Pulse Resp BP Pulse Ox 97.4 F L 70 18 142/72 H 95 10/01/20 03:50 10/01/20 03:50 10/01/20 03:50 10/01/20 03:50 10/01/20 03:50 Laboratory Results - last 24 hr 09/30/20 06:19: Calcium 7.9 L D 09/30/20 06:19: Procalcitonin 0.150 I & O for Last 24 hours: Intake & Output 09/28/20 09/29/20 09/30/20 10/01/20 11:59 11:59 11:59 11:59 Intake Total 2560 / 2560 1130 / 1130 Balance 2560 / 2560 1130 / 1130 Weight 147 lb 11.355 oz - Constitutional no acute distress - *Routine Respiratory Exam Present: rales (Right base) - *Routine Cardiovascular Exam Present: RRR - *Routine Abdominal Exam Present: soft Assessment and Plan (1) Viral pneumonia Status: Acute Category: Medical Code(s): J12.9 - Viral pneumonia, unspecified (2) COVID-19 virus infection Status: Acute Category: Medical Code(s): U07.1 - COVID-19 (3) Coronary artery disease Status: Chronic Category: Medical Code(s): I25.10 - Atherosclerotic heart disease of [place] coronary artery without angina pectoris (4) Acute kidney injury Status: Resolved Category: Medical Code(s): N17.9 - Acute kidney failure, unspecified (5) Stage 3b chronic kidney disease Status: Chronic Category: Medical Code(s): N18.32 - Chronic kidney disease, stage 3b - Assessment and plan all Dx Assessment and Plan for all problems:: . Continue dexamethasone. Encourage patient ambulate. If patient remains stable on room air over the next 24 hours with ability to ambulate independently anticipate discharge tomorrow
[2020-10-01 07:47] VITALS: BP 122/56; PULSE 76; RESP 21; TEMP 36.8; O2SAT 90
[2020-10-01 07:49] LABS: Anion Gap 9.7 mEq/L (5-15); Blood Urea Nitrogen 29 mg/dl (9-20); Calcium 8.5 mg/dl (8.4-10.2); Carbon Dioxide 16 mmol/L (22.0-30.0); Chloride 114 mmol/L (98-107); Creatinine Clearance Estimated 35 mL/min (50-200); Estimated Glomerular Filt Rate 45 ml/min (>60); GFR (African American) 54 ML/MIN (>60); Glucose 161 mg/dl (74-100); Potassium 4.7 mmoL/L (3.5-5.1); Sodium 135 mmol/L (136-145)
[2020-10-01 09:12] LABS: Procalcitonin 0.092 ng/mL (0.0-2.0)
--- NOTE | 2020-10-01 10:29 | HMH.PHAINT ---
MEDICATION RECONCILIATION COMPLETED ON PATIENT USING LIST FROM PCP OFFICE AND CALL TO [facility]. -IDA MCDANIELS, STEPHEND
[2020-10-01 12:00] VITALS: BP 116/58; PULSE 75; RESP 19; TEMP 36.9; O2SAT 95
[2020-10-01 16:00] VITALS: BP 120/53; PULSE 69; RESP 20; TEMP 36.8; O2SAT 96
--- NOTE | 2020-10-01 16:44 | PC.NURSE ---
No new complaints this shift. Pt continues on RA. Pt ambulated in room independently w/ steady gait and balance this shift. Will continue to monitor.
[2020-10-01 20:00] VITALS: BP 130/59; PULSE 78; RESP 18; TEMP 36.7; O2SAT 97
[2020-10-01 23:58] VITALS: BP 130/68; PULSE 78; RESP 21; TEMP 36.7; O2SAT 96
--- NOTE | 2020-10-02 02:56 | PC.NURSE ---
shift summary pt is alert and oriented X4. lung sounds are clear with sats maintained 95% or above on room air. pt has had no complaints. pt denies any pain, nausea, vomiting, diarrhea, or SOB. pt i able to ambulate independently to the restroom and states he hope to go home in the morning. no acute changes will continue to monitor.
[2020-10-02 04:00] VITALS: BP 125/72; PULSE 68; RESP 20; TEMP 36.7; O2SAT 97
[2020-10-02 05:03] VITALS: BMI 23.3
[2020-10-02 07:09] LABS: Anion Gap 11.5 mEq/L (5-15); Blood Urea Nitrogen 30 mg/dl (9-20); Calcium 8.3 mg/dl (8.4-10.2); Carbon Dioxide 18 mmol/L (22.0-30.0); Chloride 111 mmol/L (98-107); Creatinine Clearance Estimated 38 mL/min (50-200); Estimated Glomerular Filt Rate 48 ml/min (>60); GFR (African American) 58 ML/MIN (>60); Glucose 103 mg/dl (74-100); Potassium 4.5 mmoL/L (3.5-5.1); Sodium 136 mmol/L (136-145)
[2020-10-02 07:21] LABS: Basophils % 0.3 % (0.1-2.0); Hematocrit 39.4 % (42.0-52.0); Hemoglobin 13.6 g/dL (14.1-18.0); Lymphocytes # 0.5 K/mm3 (0.7-4.5); Lymphocytes % 6.6 % (10-50); Mean Corpuscular HGB Conc 34.5 g/dL (31.8-35.4); Mean Corpuscular Hemoglobin 29.3 pg (27.0-31.2); Mean Corpuscular Volume 84.9 fl (80-94); Mean Platelet Volume 9.7 fl (7.4-10.4); Monocytes # 0.5 K/mm3 (0.1-1.0); Monocytes % 6.7 % (1.7-9.3); Neutrophils # 6.6 K/mm3 (1.8-7.8); Neutrophils % 86.5 % (37.0-80.0); Platelet Count 193 K/mm3 (142-424); Red Blood Count 4.64 M/mm3 (4.60-6.20); Red Cell Distribution Width 13.8 % (11.5-17.5); White Blood Count 7.7 K/mm3 (4.8-10.8)
[2020-10-02 07:27] LABS: MANUAL DIFFERENTIAL MANUAL DIFFERENTIAL (MANUAL DIFF)
[2020-10-02 07:57] VITALS: BP 122/76; PULSE 70; RESP 16; TEMP 36.8; O2SAT 97
--- NOTE | 2020-10-02 07:58 | HMH.DCSUM ---
General - General Admission date:: 09/30/20 Discharge date: 10/02/20 HPI HPI: 85-year-old male presented to the emergency department with family due to profound weakness with difficulty ambulating throughout the day. On September 26 patient been seen in the office and was diagnosed with right lower lobe pneumonia confirmed on chest x-ray. Patient was started on Levaquin at that time. On follow-up on September 28 patient had noted improvement already in how he felt overall. Patient was also noted to have mild acute kidney injury on labs. Patient states Wednesday was unremarkable and then Wednesday he felt profoundly weak with difficulty ambulating. Patient was a fall risk. His condition had worsened so acutely that family brought him to the emergency department. In the ER patient underwent repeat evaluation with chest x-ray now showing perihilar hilar infiltrates bilaterally. Patient's Covid test was also positive. At this point patient's was also seen and her Covid test was also positive. Patient was admitted for observation and monitoring This morning the patient reports feeling better. He denies shortness of breath. His cough continues to improve. This morning he has been able to ambulate independently Hospital Course Hospital Course: Patient was admitted and monitored. He was started on IV dexamethasone as well as nutritional supplements for COVID-19. Patient never required oxygen supplementation. O2 sats remained 93 to 97% on room air. By the morning following admission patient's mobility had improved. He was observed for an additional 48 hours to ensure that no oxygen was going to be required and he was able to ambulate independently. Patient accomplish these goals. On October 02 he was discharged home. Patient will follow up in the office on Wednesday. He will be prescribed oral dexamethasone at discharge. Patient has chronic kidney disease and presented with acute kidney injury. By the following morning patient's creatinine had returned to baseline Objective Vital signs: Temp Pulse Resp BP Pulse Ox 98.1 F 68 20 125/72 97 10/02/20 04:00 10/02/20 04:00 10/02/20 04:00 10/02/20 04:00 10/02/20 04:00 no acute distress - *Routine Respiratory Exam Present: rales (Bibasilar) - *Routine Cardiovascular Exam Present: RRR - *Routine Abdominal Exam Present: soft, normoactive bowel sounds. Absent: tenderness Results Labs on day of discharge: Labs from last 24 hours 10/02/20 10/02/20 10/01/20 05:49 05:49 06:59 WBC 7.7 RBC 4.64 Hgb 13.6 L Hct 39.4 L MCV 84.9 MCH 29.3 MCHC 34.5 RDW 13.8 Plt Count 193 MPV 9.7 Neut % (Auto) 86.5 H Lymph % (Auto) 6.6 L [place] % (Auto) 6.7 Eos % (Auto) 0.0 L Baso % (Auto) 0.3 Neut # (Auto) 6.6 Lymph # (Auto) 0.5 L [place] # (Auto) 0.5 Eos # (Auto) 0.0 Baso # (Auto) 0.0 Sodium 136 135 L Potassium 4.5 4.7 Chloride 111 H 114 H Carbon Dioxide 18 L 16 L D Anion Gap 11.5 9.7 BUN 30 H 29 H Creatinine 1.40 H 1.50 H Estimated Creat Clear 38 35 Estimated GFR 48 L 45 L Est GFR ( Amer) 58 L 54 L Glucose 103 H D 161 H Calcium 8.3 L 8.5 Procalcitonin 10/01/20 06:59 WBC RBC Hgb Hct MCV MCH MCHC RDW Plt Count MPV Neut % (Auto) Lymph % (Auto) [place] % (Auto) Eos % (Auto) Baso % (Auto) Neut # (Auto) Lymph # (Auto) Lancaster # (Auto) Eos # (Auto) Baso # (Auto) Sodium Potassium Chloride Carbon Dioxide Anion Gap BUN Creatinine Estimated Creat Clear Estimated GFR Est GFR ( Amer) Glucose Calcium Procalcitonin 0.092 DS: Diagnosis - Discharge Diagnosis (1) Viral pneumonia Status: Acute (2) COVID-19 virus infection Status: Acute (3) Coronary artery disease Status: Chronic (4) Acute kidney injury Status: Resolved (5) Stage 3b chronic kidney disease Status: Chronic Dis
[2020-10-02 08:23] LABS: Lymphocytes % 3 % (10-50); Monocytes % 13 % (2-9); Neutrophils % 84 % (42-76); Platelet Estimate Normal; Total Cells Counted 100
[2020-10-02 08:53] LABS: Procalcitonin 0.073 ng/mL (0.0-2.0)
== END 2020-10-02 09:50 | disposition home or self-care (01) | DRG 177 ==
LOC: ER 21:41 → 2ND 23:18
PROVIDERS: Admitting Provider Family Medicine; Emergency Provider Emergency Medicine; PCP Family Medicine; Visit Provider Family Medicine
DX: U07.1 COVID-19 (principal); J12.9 Viral pneumonia, unspecified; N17.9 Acute kidney failure, unspecified; I42.9 Cardiomyopathy, unspecified; I25.10 Atherosclerotic heart disease of native coronary artery without angina pectoris; E78.5 Hyperlipidemia, unspecified; I10 Essential (primary) hypertension; Z95.5 Presence of coronary angioplasty implant and graft; Z85.828 Personal history of other malignant neoplasm of skin; N18.32 Chronic kidney disease, stage 3b; I65.29 Occlusion and stenosis of unspecified carotid artery; F17.210 Nicotine dependence, cigarettes, uncomplicated
CPT/HCPCS: 36415; 71046; 80048; 80076; 83735; 84145; 84484; 85007; 85025; 85651; 86140; 87506; 93005; 96365; 96375; 99284; J0456; U0003

== ENCOUNTER → 2021-02-28 13:21 | Outpatient (CLI) | payer MEDICARE, OTHER, SELFPAY ==
--- NOTE | 2021-02-28 13:22 | CA_ITS ---
APPROVED REPORT EXAM: Comprehensive 2D, Doppler, and color-flow Echocardiogram Supervisor [employer]: Iesha Webb RT(R) Ht: 5 ft 7 in Wt: 160lbs BSA: 1.84 BP: 134/58 mmHg Indications: smoker, HTN, hyperlipidemia, , hx COVID, CM, abn EKG, CAD, 40% EF on echo 09/22/19 Echo Enhancing Agent Indication: Endocardial border delineation Agent(s) / Amount(s) Used: Definity 2 cc 2D Dimensions LVOT 2.23 cm (M/F) 1.5-2.5 LA Volume 60.50 mL LA Volume Index 32.88 mL/m2 (M/F) 16-34 M-Mode Dimensions RVDd 2.70 cm (0.9-2.6) LA Diam 4.19 cm (1.9-4.0) LVDd 5.21 cm (3.5-5.7) Ao Diam 2.63 cm (2.0-3.7) LVDs 4.11 cm (3.5-5.7) IVSd 0.91 cm (0.6-1.1) PWd 1.10 cm (0.6-1.1) EF (Teich) 42.60% FS 21.10% EDV (Teich) 130.10 mL ESV (Teich) 74.70 mL LV Diastology E Decel Time 163.00 (160-240 msec) E/A Ratio 0.4 MED E' 3.60 (< 7 cm/sec) E'/MED E' Ratio 14.03 (>14) Aortic Valve LVOT Max 96.00 (70-110 cm/s) LVOT VTI 20.79 cm AoV Peak Jamaal. 263.00 (50-130 cm/s) AO Peak GR. 27.60 mmHg AO Mean GR. 13.60 (<5 mmHg) AO VTI 54.06 (18-25 cm) CELINA (VTI) 1.50 (2.5-4.5 cm2) Mitral Valve MV E Max Jamaal. 50.00 (40-130 cm/s) MV A Velocity 118.00 (40-130 cm/s) E/A Ratio 0.43 MV Decel. Time 163.00 (160-240 ms) MV PHT 48.00 ms Left Ventricle Left atrium is mildly enlarged, left ventricle is normal size, mild concentric left ventricular hypertrophy, visually estimated ejection fraction 40%, there is abnormal septal motion, there is no left ventricular thrombus seen, Definity contrast was utilized to delineate the endocardial surfaces, grade 1 diastolic dysfunction seen. Right Ventricle Right atrium and right ventricle are normal size and contractility. Aortic Valve Aortic valve is thickened and calcified, mean gradient across valve is 15 mmHg, valve area is 1.5 cm??? represents mild aortic stenosis, there is no significant aortic insufficiency seen. Mitral Valve Mitral valve grossly normal, there is trace mitral regurgitation. Tricuspid Valve Tricuspid valve grossly normal, there is trace tricuspid regurgitation, tricuspid regurgitation jet velocity is inadequate for calculation of the right ventricular systolic pressure. Pulmonic Valve Pulmonic valve is poorly visualized. Great Vessels Aortic root is normal size. Inferior vena cava is poorly visualized. Pericardium No significant pericardial effusion noted. Conclusion 1. Mildly enlarged left atrium, normal left ventricular size, mild concentric left ventricular hypertrophy, visually estimated ejection fraction 40% with no obvious regional wall motion abnormality, there is abnormal septal motion, there is no left ventricular thrombus seen, grade 1 diastolic dysfunction seen without tissue Doppler evidence of raise left atrial pressure, Definity contrast was utilized to delineate the endocardial surface appeared 2. Thickened and calcified aortic valve with mild aortic stenosis, there is no significant aortic insufficiency. 3. Mild mitral and tricuspid regurgitation. 4. No significant pericardial effusion noted. Electronically signed by : Kushal Luna MD 03/03/2021 20:13:43
--- NOTE | 2021-02-28 13:22 | CA_ITS ---
APPROVED REPORT Yard Pilot: Morelia Gudino RVT Laterality: Bilateral Study Quality: Good Indications: carotid artery stenosis Risk Factors Hypertension: Hyperlipidemia Smoking Doppler Spectral Velocity Analysis ECA (R) 197.80/15.30 cm/s ECA (L) 202.00/9.70 cm/s dICA (R) 97.30/19.20 cm/s dICA (L) 110.00/22.30 cm/s Mallory (R) 104.80/20.30 cm/s Mallory (L) 96.10/23.70 cm/s pICA (R) 109.10/21.40 cm/s pICA (L) 90.50/22.30 cm/s dCCA (R) 52.40/11.80 cm/s dCCA (L) 50.10/8.40 cm/s pCCA (R) 49.20/5.30 cm/s pCCA (L) 68.20/9.70 cm/s Vert (R) 55.70/18.10 cm/s Vert (L) 79.40/12.50 cm/s ICA/CCA 2.08 ICA/CCA 2.19 Findings Study suggests 20-49% stenosis of the right internal cartoid artery. Study suggests 20-49% stenosis of the left internal cartoid artery. Antegrade flow seen bilateral vertebral arteries. Conclusion Study suggests 20-49% stenosis of the right internal cartoid artery. Study suggests 20-49% stenosis of the left internal cartoid artery. Antegrade flow seen bilateral vertebral arteries. Moderate heterogeneous plaque in both common carotids Electronically signed by : Zachary Caban MD 02/28/2021 17:01:18
== END ==
PROVIDERS: PCP Family Medicine; Visit Provider Physician Assistant
DX: E78.2 Mixed hyperlipidemia (principal); I10 Essential (primary) hypertension; I25.10 Atherosclerotic heart disease of native coronary artery without angina pectoris; I25.5 Ischemic cardiomyopathy; I35.0 Nonrheumatic aortic (valve) stenosis; I65.23 Occlusion and stenosis of bilateral carotid arteries; J98.4 Other disorders of lung; R09.89 Other specified symptoms and signs involving the circulatory and respiratory systems; R94.31 Abnormal electrocardiogram [ECG] [EKG]; U07.1 COVID-19; Z72.0 Tobacco use
CPT/HCPCS: 93306; 93880; Q9957

== ENCOUNTER → 2021-03-11 07:29 | Outpatient (CLI) | payer MEDICARE, OTHER, SELFPAY ==
[2021-03-11 07:37] LABS: Microscopic, Urine URINE MICROSCOPIC (MICROSCOPIC)
[2021-03-11 08:33] LABS: Appearance,Urine CLEAR (Clear); Bilirubin,Urine Negative (Negative); Blood, Urine Negative (Negative); Color,Urine YELLOW (Yellow); Glucose,Urine (UA) Negative (Negative); Ketones,Urine Negative (Negative); Leukocyte Esterase,Urine TRACE (Negative); Nitrate,Urine Negative (Negative); Protein,Urine Negative (Negative); Specific Gravity, Urine 1.025 (1.005-1.030); Urobilinogen,Urine 0.2 EU/dl (0.2)
[2021-03-11 08:45] LABS: Albumin Level 3.8 g/dl (3.5-5.0); Anion Gap 11.6 mEq/L (5-15); Blood Urea Nitrogen 19 mg/dl (9-20); Calcium 9.4 mg/dl (8.4-10.2); Carbon Dioxide 28 mmol/L (22.0-30.0); Chloride 104 mmol/L (98-107); Estimated Glomerular Filt Rate 48 ml/min (>60); GFR (African American) 58 ML/MIN (>60); Glucose 108 mg/dl (74-100); Phosphorous 4.1 mg/dl (2.5-4.5); Potassium 4.6 mmoL/L (3.5-5.1); Sodium 139 mmol/L (136-145)
[2021-03-11 09:03] LABS: WBC,Urine Occasional #/hpf (0-3)
[2021-03-11 09:04] LABS: Bacteria,Urine Trace /lpf; Squamous Epithelial Cell,Urine Occasional #/hpf (0-5)
== END ==
PROVIDERS: Visit Provider Internal Medicine Nephrology
DX: N18.30 Chronic kidney disease, stage 3 unspecified (principal)
CPT/HCPCS: 36415; 80069; 81001

== ENCOUNTER → 2021-09-01 09:06 | Outpatient (CLI) | payer MEDICARE, OTHER, SELFPAY ==
[2021-09-01 09:45] LABS: Basophils # 0.2 K/mm3 (0-0.2); Basophils % 2.1 % (0.1-2.0); Eosinophils # 0.5 K/mm3 (0.0-0.4); Eosinophils % 5.3 % (0.1-12.0); Hematocrit 45.7 % (42.0-52.0); Hemoglobin 15.3 g/dL (14.1-18.0); Lymphocytes # 1.2 K/mm3 (0.7-4.5); Lymphocytes % 11.8 % (10-50); Mean Corpuscular HGB Conc 33.5 g/dL (31.8-35.4); Mean Corpuscular Hemoglobin 30.4 pg (27.0-31.2); Mean Corpuscular Volume 90.9 fl (80-94); Mean Platelet Volume 9.4 fl (7.4-10.4); Monocytes # 0.7 K/mm3 (0.1-1.0); Monocytes % 7.2 % (1.7-9.3); Neutrophils # 7.4 K/mm3 (1.8-7.8); Neutrophils % 73.6 % (37.0-80.0); Platelet Count 196 K/mm3 (142-424); Red Blood Count 5.03 M/mm3 (4.60-6.20); Red Cell Distribution Width 13.4 % (11.5-17.5); White Blood Count 10.1 K/mm3 (4.8-10.8)
[2021-09-01 10:11] LABS: Chloride 105 mmol/L (98-107); Potassium 4.4 mmoL/L (3.5-5.1); Sodium 136 mmol/L (136-145)
[2021-09-01 10:13] LABS: Blood Urea Nitrogen 21 mg/dl (9-20); Estimated Glomerular Filt Rate 53 ml/min (>60); GFR (African American) 64 ML/MIN (>60)
[2021-09-01 10:14] LABS: Alanine Aminotransferase 22 U/L (12-78); Alkaline Phosphatase 117 U/L (38-126); Anion Gap 10.4 mEq/L (5-15); Aspartate Amino Transferase 27 U/L (17-59); Bilirubin,Indirect 0.6 mg/dL (0.0-0.9); Bilirubin,Total 0.6 mg/dl (0.2-1.3); Bilirubin,Unconjugated 0.7 mg/dL (0.0-1.1); Calcium 9.3 mg/dl (8.4-10.2); Carbon Dioxide 25 mmol/L (22.0-30.0); Chol/HDL Ratio 3.2 (1-3.5); Cholesterol 92 mg/dl (140-200); Glucose 145 mg/dl (74-100); HDL Cholesterol 29 mg/dl (40-60); Magnesium 1.7 mg/dl (1.6-2.3); Total Protein,Serum 6.6 g/dl (6.3-8.2); Triglycerides 94 mg/dl (30-150); VLDL Cholesterol 19 mg/dL (0-40)
[2021-09-01 10:25] LABS: Direct LDL Cholesterol 41.01 mg/dL (100-129)
== END ==
PROVIDERS: PCP Family Medicine; Visit Provider Nurse Practitioner
DX: E78.5 Hyperlipidemia, unspecified (principal); I10 Essential (primary) hypertension; I25.10 Atherosclerotic heart disease of native coronary artery without angina pectoris; I35.0 Nonrheumatic aortic (valve) stenosis; I42.9 Cardiomyopathy, unspecified; I65.29 Occlusion and stenosis of unspecified carotid artery; J98.4 Other disorders of lung; R94.31 Abnormal electrocardiogram [ECG] [EKG]; U09.9 Post COVID-19 condition, unspecified
CPT/HCPCS: 36415; 80048; 80061; 80076; 83735; 85025

== ENCOUNTER → 2021-09-16 08:35 | Outpatient (CLI) | payer MEDICARE, OTHER, SELFPAY ==
[2021-09-17 08:14] LABS: PSA, Free 0.65 ng/mL; Prostate Specific Ag 7.6 ng/mL (0.0-4.0)
== END ==
PROVIDERS: PCP Family Medicine; Visit Provider Urology
DX: R97.20 Elevated prostate specific antigen [PSA] (principal)
CPT/HCPCS: 36415; 84153; 84154

== ENCOUNTER → 2021-09-22 07:02 | Outpatient (CLI) | payer MEDICARE, OTHER, SELFPAY ==
[2021-09-22 07:12] LABS: Microscopic, Urine URINE MICROSCOPIC (MICROSCOPIC)
[2021-09-22 07:44] LABS: Appearance,Urine CLEAR (Clear); Basophils # 0.1 K/mm3 (0-0.2); Basophils % 1.5 % (0.1-2.0); Bilirubin,Urine Negative (Negative); Blood, Urine Negative (Negative); Color,Urine YELLOW (Yellow); Eosinophils # 0.6 K/mm3 (0.0-0.4); Eosinophils % 7.6 % (0.1-12.0); Glucose,Urine (UA) Negative (Negative); Hematocrit 46.1 % (42.0-52.0); Hemoglobin 14.9 g/dL (14.1-18.0); Ketones,Urine Negative (Negative); Leukocyte Esterase,Urine 1+ (Negative); Lymphocytes # 1.3 K/mm3 (0.7-4.5); Lymphocytes % 15.8 % (10-50); Mean Corpuscular HGB Conc 32.3 g/dL (31.8-35.4); Mean Corpuscular Hemoglobin 30.3 pg (27.0-31.2); Mean Corpuscular Volume 93.8 fl (80-94); Mean Platelet Volume 9.1 fl (7.4-10.4); Monocytes # 0.7 K/mm3 (0.1-1.0); Monocytes % 8.2 % (1.7-9.3); Neutrophils # 5.6 K/mm3 (1.8-7.8); Nitrate,Urine Negative (Negative); Platelet Count 228 K/mm3 (142-424); Protein,Urine Negative (Negative); Red Blood Count 4.92 M/mm3 (4.60-6.20); Red Cell Distribution Width 13.5 % (11.5-17.5); Specific Gravity, Urine 1.025 (1.005-1.030); Urobilinogen,Urine 0.2 EU/dl (0.2); White Blood Count 8.3 K/mm3 (4.8-10.8)
[2021-09-22 08:03] LABS: Bacteria,Urine Trace /lpf; Squamous Epithelial Cell,Urine Occasional #/hpf (0-5)
[2021-09-22 08:20] LABS: Albumin Level 3.6 g/dl (3.5-5.0); Anion Gap 15.4 mEq/L (5-15); Blood Urea Nitrogen 20 mg/dl (9-20); Carbon Dioxide 22 mmol/L (22.0-30.0); Chloride 106 mmol/L (98-107); Estimated Glomerular Filt Rate 52 ml/min (>60); GFR (African American) 63 ML/MIN (>60); Glucose 141 mg/dl (74-100); Phosphorous 3.9 mg/dl (2.5-4.5); Potassium 4.4 mmoL/L (3.5-5.1); Sodium 139 mmol/L (136-145)
[2021-09-22 08:32] LABS: Intact Parathyroid Hormone 109.9 pg/mL (7.5-53.5)
[2021-09-22 08:36] LABS: 25-OH Vitamin D, Total 69.7 ng/mL (30-100)
[2021-09-22 08:38] LABS: Creatinine,Urine Random 119 mg/dL (Not Estab.)
== END ==
PROVIDERS: PCP Family Medicine; Visit Provider Hospitalist
DX: R80.9 Proteinuria, unspecified (principal); N18.30 Chronic kidney disease, stage 3 unspecified
CPT/HCPCS: 36415; 80069; 81001; 82306; 82570; 83970; 84155; 85025; 87086

== ENCOUNTER → 2022-01-26 12:11 | Outpatient (CLI) | payer MEDICARE, OTHER, SELFPAY ==
[2022-01-26 12:26] LABS: Microscopic, Urine URINE MICROSCOPIC (MICROSCOPIC)
[2022-01-26 13:23] LABS: Basophils # 0.1 K/mm3 (0-0.2); Basophils % 0.9 % (0.1-2.0); Eosinophils # 0.3 K/mm3 (0.0-0.4); Hemoglobin 15.4 g/dL (14.1-18.0); Lymphocytes # 1.3 K/mm3 (0.7-4.5); Lymphocytes % 12.4 % (10-50); Mean Corpuscular HGB Conc 32.1 g/dL (31.8-35.4); Mean Corpuscular Hemoglobin 29.9 pg (27.0-31.2); Mean Corpuscular Volume 93.2 fl (80-94); Mean Platelet Volume 9.4 fl (7.4-10.4); Monocytes # 0.6 K/mm3 (0.1-1.0); Monocytes % 5.8 % (1.7-9.3); Neutrophils % 77.9 % (37.0-80.0); Platelet Count 206 K/mm3 (142-424); Red Blood Count 5.15 M/mm3 (4.60-6.20); Red Cell Distribution Width 13.1 % (11.5-17.5); White Blood Count 10.3 K/mm3 (4.8-10.8)
[2022-01-26 13:30] LABS: Albumin Level 3.6 g/dl (3.5-5.0); Anion Gap 13.5 mEq/L (5-15); Blood Urea Nitrogen 20 mg/dl (9-20); Calcium 9.2 mg/dl (8.4-10.2); Carbon Dioxide 28 mmol/L (22.0-30.0); Chloride 103 mmol/L (98-107); Estimated Glomerular Filt Rate 48 ml/min (>60); GFR (African American) 58 ML/MIN (>60); Glucose 152 mg/dl (74-100); Phosphorous 2.8 mg/dl (2.5-4.5); Potassium 4.5 mmoL/L (3.5-5.1); Sodium 140 mmol/L (136-145)
[2022-01-26 13:32] LABS: Appearance,Urine CLEAR (Clear); Bilirubin,Urine Negative (Negative); Blood, Urine Negative (Negative); Color,Urine YELLOW (Yellow); Glucose,Urine (UA) Negative (Negative); Ketones,Urine Negative (Negative); Leukocyte Esterase,Urine 1+ (Negative); Nitrate,Urine Negative (Negative); Protein,Urine Negative (Negative); Specific Gravity, Urine 1.015 (1.005-1.030); Urobilinogen,Urine 0.2 EU/dl (0.2)
[2022-01-26 13:41] LABS: Intact Parathyroid Hormone 132.5 pg/mL (7.5-53.5)
[2022-01-26 13:50] LABS: Creatinine,Urine Random 137 mg/dL (Not Estab.)
[2022-01-26 13:57] LABS: Bacteria,Urine Trace /lpf; Squamous Epithelial Cell,Urine Occasional #/hpf (0-5)
[2022-02-02 10:10] LABS: 1,25 Dihydroxy Vitamin D 45 pg/mL (.); 1,25-Dihydroxy, Vitamin D-2 <10 pg/mL (.); 1,25-Dihydroxy, Vitamin D-3 43 pg/mL (.)
== END ==
PROVIDERS: PCP Family Medicine; Visit Provider Nurse Practitioner
DX: N18.31 Chronic kidney disease, stage 3a (principal); R82.90 Unspecified abnormal findings in urine
CPT/HCPCS: 36415; 80069; 81001; 82570; 82652; 83970; 84155; 85025; 87086

== ENCOUNTER → 2022-07-20 08:23 | Outpatient (CLI) | payer MEDICARE, OTHER, SELFPAY ==
[2022-07-20 08:35] LABS: Microscopic, Urine URINE MICROSCOPIC (MICROSCOPIC)
[2022-07-20 09:00] LABS: Appearance,Urine CLEAR (Clear); Bilirubin,Urine Negative (Negative); Blood, Urine Negative (Negative); Color,Urine YELLOW (Yellow); Glucose,Urine (UA) Negative (Negative); Ketones,Urine Negative (Negative); Leukocyte Esterase,Urine 1+ (Negative); Nitrate,Urine Negative (Negative); Protein,Urine TRACE (Negative); Specific Gravity, Urine 1.025 (1.005-1.030); Urobilinogen,Urine 0.2 EU/dl (0.2)
[2022-07-20 09:01] LABS: Basophils % 0.4 % (0.1-2.0); Eosinophils # 0.3 K/mm3 (0.0-0.4); Eosinophils % 3.3 % (0.1-12.0); Hematocrit 42.1 % (42.0-52.0); Hemoglobin 13.7 g/dL (14.1-18.0); Lymphocytes # 1.1 K/mm3 (0.7-4.5); Lymphocytes % 13.3 % (10-50); Mean Corpuscular HGB Conc 32.6 g/dL (31.8-35.4); Mean Corpuscular Hemoglobin 29.5 pg (27.0-31.2); Mean Corpuscular Volume 90.3 fl (80-94); Mean Platelet Volume 9.1 fl (7.4-10.4); Monocytes # 0.6 K/mm3 (0.1-1.0); Monocytes % 6.9 % (1.7-9.3); Neutrophils # 6.3 K/mm3 (1.8-7.8); Platelet Count 202 K/mm3 (142-424); Red Blood Count 4.66 M/mm3 (4.60-6.20); White Blood Count 8.3 K/mm3 (4.8-10.8)
[2022-07-20 09:09] LABS: Creatinine,Urine Random 187 mg/dL (Not Estab.)
[2022-07-20 09:15] LABS: Chloride 103 mmol/L (98-107); Sodium 137 mmol/L (136-145)
[2022-07-20 09:16] LABS: Potassium 4.1 mmoL/L (3.5-5.1)
[2022-07-20 09:18] LABS: Blood Urea Nitrogen 17 mg/dl (9-20); Estimated Glomerular Filt Rate 52 ml/min (>60); GFR (African American) 63 ML/MIN (>60)
[2022-07-20 09:19] LABS: Anion Gap 16.1 mEq/L (5-15); Calcium 8.2 mg/dl (8.4-10.2); Carbon Dioxide 22 mmol/L (22.0-30.0); Glucose 125 mg/dl (74-100); Phosphorous 3.9 mg/dl (2.5-4.5)
[2022-07-20 09:35] LABS: Bacteria,Urine 3+ /lpf; Mucus,Urine Trace /lpf; RBC,Urine Occasional #/hpf (0-3); Squamous Epithelial Cell,Urine Occasional #/hpf (0-5)
== END ==
PROVIDERS: PCP Family Medicine; Visit Provider Internal Medicine Nephrology
DX: N18.30 Chronic kidney disease, stage 3 unspecified (principal); R82.90 Unspecified abnormal findings in urine
CPT/HCPCS: 36415; 80069; 81001; 82570; 84155; 85025; 87086

== ENCOUNTER → 2022-09-01 09:02 | Outpatient (CLI) | payer MEDICARE, OTHER, SELFPAY ==
[2022-09-01 09:53] LABS: Alanine Aminotransferase 24 U/L (12-78); Albumin Level 3.7 g/dl (3.5-5.0); Alkaline Phosphatase 103 U/L (38-126); Aspartate Amino Transferase 25 U/L (17-59); Bilirubin,Indirect 0.4 mg/dL (0.0-0.9); Bilirubin,Total 0.4 mg/dl (0.2-1.3); Bilirubin,Unconjugated 0.7 mg/dL (0.0-1.1); Chol/HDL Ratio 2.6 (1-3.5); Cholesterol 74 mg/dl (140-200); HDL Cholesterol 29 mg/dl (40-60); Total Protein,Serum 6.1 g/dl (6.3-8.2); Triglycerides 72 mg/dl (30-150); VLDL Cholesterol 14 mg/dL (0-40)
[2022-09-01 10:05] LABS: Direct LDL Cholesterol 33.65 mg/dL (100-129)
== END ==
PROVIDERS: PCP Family Medicine; Visit Provider Nurse Practitioner
DX: R06.00 Dyspnea, unspecified; E78.2 Mixed hyperlipidemia; I10 Essential (primary) hypertension; I25.10 Atherosclerotic heart disease of native coronary artery without angina pectoris; I25.5 Ischemic cardiomyopathy; I35.0 Nonrheumatic aortic (valve) stenosis; I65.23 Occlusion and stenosis of bilateral carotid arteries; K21.9 Gastro-esophageal reflux disease without esophagitis; R94.31 Abnormal electrocardiogram [ECG] [EKG]; Z72.0 Tobacco use
CPT/HCPCS: 36415; 80061; 80076

== ENCOUNTER → 2022-09-16 06:11 | Outpatient (CLI) | payer MEDICARE, OTHER, SELFPAY ==
--- NOTE | 2022-09-16 06:18 | NM_ITS ---
APPROVED REPORT Exam: Nuclear Stress Test Indication: chest pian..soa..hypertension..higfh cholesterol..family hx Patient Location: Outpatient Stress Tech: Janelle Ashley GA Tech:Naomi Quezada RICKIIsabelle RT(R)(N) Ht: 5 ft 7 in Wt: 160 lbs HR: 76 bpm BP: 139/65 mmHg BSA: 1.84 m2 Rhythm: NSR, LBBB TID: 1.01 BMI: 25.0 History: chest pian..soa..hypertension..higfh cholesterol..family hx Procedure: Patient received 0.4 mg of intravenous Lexiscan, resting heart rate 76 bpm, resting blood pressure 139/65 mmHg, with Lexiscan maximum heart rate achieved was 88 bpm which is 85 % of the maximum predicted heart rate and blood pressure was 145/65 mmHg. With Lexiscan, patient denied any complaint of chest pain. Cardiac Stress and Resting SPECT Images: Cardiac Stress and Resting SPECT images were obtained using technetium 99m Myoview 32.8 mCi stress and 10.27 mCi at rest. Resting and stress imaging in both supine and prone positions demonstrate a large-sized, severe, fixed perfusion defect in the inferior and inferoseptal LV wall from the base and extending distally towards the inferoapical region. The left ventricle appears dilated. Gated imaging demonstrates severe reduction in global LV systolic function. There is akinesis of the inferior and inferoseptal LV wall, as well as akinesis of the LV apex. The septum appears asynchronous. LVEF is calculated at 24%. Conclusion: Resting and stress imaging in both supine and prone positions demonstrate a large-sized, severe, fixed perfusion defect in the inferior and inferoseptal LV wall from the base and extending distally towards the inferoapical region. No evidence of reversible ischemia. The left ventricle appears dilated. Gated imaging demonstrates severe reduction in global LV systolic function. There is akinesis of the inferior and inferoseptal LV wall, as well as akinesis of the LV apex. The septum appears asynchronous. LVEF is calculated at 24%. Electronically signed by : Christianne Redd, 09/17/2022 21:48:11
--- NOTE | 2022-09-16 07:15 | CA_ITS ---
FINAL REPORT TECHNIQUE: Color Doppler, duplex Doppler and tang scale sonography of the bilateral neck arterial vasculature was performed. Velocities were measured in the carotid arteries. Stenosis evaluation based on the validated velocity criteria. CLINICAL HISTORY: MARC COMPARISON: none FINDINGS: The peak systolic velocity of the right common carotid artery is 45 cm/s. The peak systolic velocity of the right internal carotid artery is 97 cm/s and end diastolic velocity 21 cm/s. The ICA/CCA ratio is 2.17. A small amount of plaque is present. The right external carotid artery is patent. The right vertebral artery is patent with antegrade flow. The peak systolic velocity of the left common carotid artery is 32 cm/s. The peak systolic velocity of the left internal carotid artery is 100 cm/s and end diastolic velocity 21 cm/s. The ICA/CCA ratio is 3.08. A moderate amount of plaque is present. The left external carotid artery is patent.The left vertebral artery is patent with antegrade flow. IMPRESSION: Less than 50% bilateral carotid stenoses. Bilateral patent vertebral arteries with antegrade flow. If indicated, CTA or MRA could further evaluate. Reviewed, Interpreted and Dictated by Randy Pressley III, MD Transcribed by Vannessa Pat Authenticated and [facility]
--- NOTE | 2022-09-16 08:50 | CA_ITS ---
APPROVED REPORT Exam: Pharmacologic Technologist: Janelle Ashley Ht: 5 ft 6 in Wt: 158 lbs BSA: 1.81 m2 HR: 71 bpm BP: 139/65 mmHg Rhythm: NSR Indications: Cardiomyopathy, Shortness of Breath, Chest pain Medical History Medications: Amlodipine,,,,, Omeprazole,,,,, Isosorbide,,,,, Aspirin,,,,, Atenolol,,,,, Atorvastatin,,,,, TAMSULOSIN,,,,, Finasteride,,,,, Stress Test Details Test: LEXISCAN HR Resting HR: 76 bpm Max Heart Rate (APMHR): 134 bpm Max HR Achieved: 88 bpm Target HR (85% APMHR): 114 bpm % of APMHR: 66 Recovery HR: 82 bpm BP Resting BP: 139.0/65.0 mmHg Max BP: 145.0/65.0 mmHg Recovery BP: 142.0/65.0 mmHg ECG Resting ECG: Normal sinus rhythm, left bundle branch block Stress ECG: No change Arrhythmia: PACs, PVCs Recovery ECG: No change Recovery Arrhythmia: PACs, PVCs Clinical Exercise duration: 04:00 min Highest Stage Achieved: Exercise capacity: 1.0 METs Stress ECG Conclusion Symptoms: Mild shortness of air, mild malaise. No chest pain. Arrhythmias/Ectopy: Occasional PAC and PVCs ST-T Changes: No significant changes. Conclusion: Non-diagnostic Lexiscan stress due to baseline LBBB Myoview images are reported separately Test Summary REST . . . . . . . Resting REST 05:27 . . 76 . 139/ 65 . . Stage 1 . . . . . . . Myoview Injected Stage 1 01:00 . . 76 . . . . Stage 2 01:00 . . 85 . 140/ 63 . . Stage 3 01:00 . . 85 . 145/ 65 . . Stage 4 01:00 . . 84 . 144/ 63 . Stop exercise at 04:00 RECOVERY 01:00 . . 83 . 138/ 67 . . RECOVERY 02:00 . . 82 . 138/ 67 . . RECOVERY 03:00 . . 82 . 142/ 65 . . RECOVERY 03:26 . . 81 . 142/ 65 . . Electronically signed by : Christianne Redd, 09/17/2022 21:31:42
== END ==
PROVIDERS: PCP Family Medicine; Visit Provider Nurse Practitioner
DX: I20.9 Angina pectoris, unspecified; E78.2 Mixed hyperlipidemia; I10 Essential (primary) hypertension; I25.5 Ischemic cardiomyopathy; I35.0 Nonrheumatic aortic (valve) stenosis; I65.23 Occlusion and stenosis of bilateral carotid arteries; K21.9 Gastro-esophageal reflux disease without esophagitis; R06.00 Dyspnea, unspecified; R94.31 Abnormal electrocardiogram [ECG] [EKG]; Z87.891 Personal history of nicotine dependence; R06.02 Shortness of breath; R09.89 Other specified symptoms and signs involving the circulatory and respiratory systems
CPT/HCPCS: 78452; 93017; 93306; 93880; A9502; J2785

== ENCOUNTER 2022-09-16 12:32 | Inpatient (IN) | payer MEDICARE, OTHER, SELFPAY ==
--- NOTE | 2022-09-16 12:40 | PC.NURSE ---
came from ED admissions by w/c
[2022-09-16 12:46] VITALS: BP 142/75; PULSE 88; RESP 16; TEMP 36.3; O2SAT 98; BMI 23.7
--- NOTE | 2022-09-16 12:51 | EXP.HP ---
History of Present Illness *Admission Date: 09/16/22 *Reason for visit:: Shortness of breath, weakness, abnormal stress test *History of present illness: 87-year-old male with history of heart failure with reduced ejection fraction, hyperlipidemia, history of tobacco use disorder. Presented to cardiology for stress testing. Found to have acute worsening with an EF approximately 25% on nuclear scan. Also found to have presence of possible LV thrombus. Discussed case with cardiology, requested admission for initiation of anticoagulation, and monitoring. Patient may necessitate BUYER GRAIN-D therapy in the immediate future. Patient states he has some occasional shortness of breath. Occasional chest discomfort that he attributes to his chronic GERD. 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 Denies any pain with exertion. No nausea or vomiting. Stable on room air. Alert and oriented x4. [facility] Disclaimer: The information contained in this section may have been updated after the patient was seen, as this information can be updated by other users. Medical History Abnormal EKG Angina, class III Angina, class IV Aortic stenosis Chronic kidney disease Coronary artery calcification seen on computed tomography Dyspnea Former smoker HTN (hypertension) Murmur, heart SOB (shortness of breath) Family History Kidney disease Heart disease Social History Smoking Status: Former smoker alcohol intake: never substance use type: denies use 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 Travel in the last 8 weeks: None household members: spouse Meds Home Medications and Allergies Home Medications Medication Instructions Recorded Confirmed Type finasteride 5 mg tablet 5 mg PO DAILY prostate 09/07/17 09/16/22 History aspirin 81 mg tablet,delayed 81 mg PO DAILY Heart disease 05/16/18 09/16/22 History release (Aspir-) tamsulosin 0.4 mg capsule 0.4 mg PO DAILY prostate 05/16/18 09/16/22 History amlodipine 5 mg tablet 2.5 mg PO DAILY Blood Pressure 05/31/18 09/16/22 History atenolol 50 mg tablet 50 mg PO DAILY Blood Pressure 09/16/22 09/16/22 History atorvastatin 40 mg tablet 40 mg PO HS Cholesterol 09/16/22 09/16/22 History isosorbide mononitrate 30 mg 30 mg PO DAILY Chest Pain 09/16/22 09/16/22 History tablet,extended release 24 hr omeprazole 40 mg capsule,delayed 40 mg PO DAILY Acid Reflux 09/16/22 09/16/22 History release New Prescriptions to Start Prescriptions: Allergies Allergy/AdvReac Type Severity Reaction Status Date / Time ciprofloxacin Allergy Unknown Verified 09/16/22 11:42 PT STATES NUMEROUS MEDS NOT Allergy Unknown Uncoded 09/16/22 11:42 SUPPOSED TO TAKE Exam Data for Last 24 hours Vital signs and Labs for Last 24 Hours: Temp Pulse Resp BP Pulse Ox 97.4 F L 88 16 142/75 H 98 09/16/22 12:46 09/16/22 12:46 09/16/22 12:46 09/16/22 12:46 09/16/22 12:46 I & O for Last 24 hours: Intake & Output 09/13/22 09/14/22 09/15/22 09/16/22 23:59 23:59 23:59 23:59 Weight 68.691 kg Constitutional Constitutional: no acute distress and average body habitus *Routine HEENT Exam Head: Present normocephalic and atraumatic Eye: Present EOMI and PERRL ENT: Present mucous membranes moist *Routine Neck Exam Neck: Present supple; Absent JVD Routine Chest/Breast/Axilla Exam Chest wall: Absent tenderness *Routine Respiratory Exam Respiratory: Present CTA bilaterally; Absent accessory muscle use, respiratory distress, rhonchi, wheezes or crackles *Routine Cardiovascular Exam Cardiovascular: Present RRR, Normal S1, Normal S2 and murmur (systolic) *Routine Abdominal Exam Abdominal: Present soft and normoactive bowel sounds; Absent tenderness or distended *Routine Rectal Exam Rectal:: deferred *Routine Genitalia Exam Genitalia:: deferred *Manueli
[2022-09-16 13:02] VITALS: BMI 24.0
[2022-09-16 13:14] VITALS: PULSE 80
--- NOTE | 2022-09-16 13:21 | HMH.PHAINT1 ---
Pharmacy Intervention Comments: Patient's home medications reviewed and verified with external pharmacy. -Dov Doherty, Pharm Student
[2022-09-16 13:22] LABS: Basophils % 0.4 % (0.1-2.0); Eosinophils # 0.2 K/mm3 (0.0-0.4); Hematocrit 45.8 % (42.0-52.0); Hemoglobin 14.8 g/dL (14.1-18.0); Lymphocytes % 11.1 % (10-50); Mean Corpuscular HGB Conc 32.2 g/dL (31.8-35.4); Mean Corpuscular Hemoglobin 28.9 pg (27.0-31.2); Mean Corpuscular Volume 89.7 fl (80-94); Mean Platelet Volume 8.9 fl (7.4-10.4); Monocytes # 0.6 K/mm3 (0.1-1.0); Monocytes % 6.7 % (1.7-9.3); Neutrophils # 7.1 K/mm3 (1.8-7.8); Neutrophils % 79.8 % (37.0-80.0); Platelet Count 169 K/mm3 (142-424); Red Cell Distribution Width 13.5 % (11.5-17.5); White Blood Count 8.9 K/mm3 (4.8-10.8)
[2022-09-16 13:35] LABS: Alanine Aminotransferase 28 U/L (12-78); Albumin Level 4.1 g/dl (3.5-5.0); Albumin/Globulin Ratio 1.4 (1.1-1.8); Alkaline Phosphatase 134 U/L (38-126); Anion Gap 12.6 mEq/L (5-15); Aspartate Amino Transferase 30 U/L (17-59); Bilirubin,Total 0.6 mg/dl (0.2-1.3); Blood Urea Nitrogen 17 mg/dl (9-20); Calcium 8.8 mg/dl (8.4-10.2); Carbon Dioxide 26 mmol/L (22.0-30.0); Chloride 105 mmol/L (98-107); Creatinine Clearance Estimated 37 mL/min (50-200); Estimated Glomerular Filt Rate 48 ml/min (>60); GFR (African American) 58 ML/MIN (>60); Globulin 2.9 g/dL (1.3-3.2); Glucose 134 mg/dl (74-100); Magnesium 1.9 mg/dl (1.6-2.3); Potassium 4.6 mmoL/L (3.5-5.1); Sodium 139 mmol/L (136-145)
--- NOTE | 2022-09-16 13:51 | EXP.CARD.PN ---
Subjective Subjective Date: 09/16/22 Time: 13:51 Exam Data for Last 24 hours Vital signs and Labs for Last 24 Hours: Temp Pulse Resp BP Pulse Ox 97.4 F L 88 16 142/75 H 98 09/16/22 12:46 09/16/22 12:46 09/16/22 12:46 09/16/22 12:46 09/16/22 12:46 Laboratory Results - last 24 hr 09/16/22 13:09: WBC 8.9, RBC 5.10, Hgb 14.8, Hct 45.8, MCV 89.7, MCH 28.9, MCHC 32.2, RDW 13.5, Plt Count 169, MPV 8.9, Neut % (Auto) 79.8, Lymph % (Auto) 11.1, [place] % (Auto) 6.7, Eos % (Auto) 2.0, Baso % (Auto) 0.4, Neut # (Auto) 7.1, Lymph # (Auto) 1.0, [place] # (Auto) 0.6, Eos # (Auto) 0.2, Baso # (Auto) 0.0, Sodium 139, Potassium 4.6, Chloride 105, Carbon Dioxide 26, Anion Gap 12.6, BUN 17, Creatinine 1.40 H, Estimated Creat Clear 37, Estimated GFR 48 L, Est GFR ( Amer) 58 L, Glucose 134 H, Calcium 8.8, Magnesium 1.9, Total Bilirubin 0.6, AST 30, ALT 28, Alkaline Phosphatase 134 H, Total Protein 7.0, Albumin 4.1, Globulin 2.9, Albumin/Globulin Ratio 1.4 I & O for Last 24 hours: Intake & Output 09/13/22 09/14/22 09/15/22 09/16/22 23:59 23:59 23:59 23:59 Weight 153 lb 4 oz Progress Note: A&P Assessment and plan (1) Acute on chronic HFrEF (heart failure with reduced ejection fraction): Status: Acute (2) LV (left ventricular) mural thrombus: Status: Acute (3) Cardiomyopathy: Status: Chronic (4) HLD (hyperlipidemia): Status: Chronic (5) CAD (coronary artery disease): Status: Chronic (6) Chronic kidney disease: Status: Chronic (7) HTN (hypertension): Status: Chronic Assessment and Plan Assessment and Plan for All Diagnoses:: Patient here for test fu Prelminary EF of 25%, with LV thrombus Stress test pending. Reports episodes of cp & pressure Patient had echo and stress test today SOB with activity. improves with rest. Hx of CAD Hx CHARLI 05/2018 Patient weight down 3 lbs BP acceptable. Diastolic dysfunction, stable. LDL goal is < 55. LDL is 42(10/2018). Cardiomyopathy is present, EF 40% (2020)- Now reduced to 25% with possible LV thrombus MARC is stable, Carotid u/s 20-49% bilateral ICA(2020) EKG shows NSR rate of 78, nonspecific intraventricular block. Patient has been admitted to the hospital today for HFrEF, which is worsening from previous in 2020, as well as possible LV thrombus. We will anticoagulate with the patient with Lovenox 1 mg/kg subcutaneous twice daily. The patient will need to have left cardiac catheterization tomorrow due to worsening cardiomyopathy and LV dysfunction with known coronary artery disease. The patient has been educated on the risks and benefits of proceeding with left cardiac catheterization. The patient verbalizes understanding and is agreeable in proceeding with the procedure. The patient will need to be started on goal-directed medical therapy before consideration of AICD placement. He is currently on atenolol. We will add Entresto 24/26 mg p.o. twice daily for his systolic congestive heart failure. Stop Norvasc secondary to his cardiomyopathy. Following the patient's left cardiac catheterization, he will be started on oral Coumadin in addition to the Lovenox for the possible LV thrombus. Further recommendations will be made pending the patient's response to treatment.
[2022-09-16 14:02] LABS: Troponin I < 0.01 ng/ml (0.00-0.034)
[2022-09-16 14:13] LABS: Coronavirus 19, PCR Not Detected (NotDetected); Influenza A, PCR Not Detected (NotDetected); Influenza B, PCR Not Detected (NotDetected)
[2022-09-16 15:17] VITALS: BP 134/68; PULSE 76; RESP 16; TEMP 36.5; O2SAT 97
[2022-09-16 16:00] VITALS: PULSE 80
[2022-09-16 20:00] VITALS: BP 141/67; PULSE 80; PULSE 85; RESP 16; TEMP 36.5; O2SAT 96
[2022-09-17] VITALS (13 sets, daily range): BP systolic 94–129; BP diastolic 50–66; PULSE 60–76; RESP 15–18; TEMP 36.7–37.2; O2SAT 93–97; BMI 23.6
--- NOTE | 2022-09-17 | IR_ITS ---
APPROVED REPORT PROCEDURES Left heart catheterization Left ventriculogram Selective coronary angiogram Drug-eluting stent deployment to the mid dominant right coronary artery INDICATION New onset cardiomyopathy, Angina pectoris, Coronary artery disease Informed consent was obtained prior to the procedure. COMPLICATIONS None Estimated Blood Loss: Less than 10 ml TECHNIQUE One percent lidocaine used to anesthetize the right anterior aspect of the wrist. The right radial artery was accessed via the Seldinger technique. A 6 [place] sheath was placed in the right radial artery. 150 mg magnesium sulfate, 800 mcg of nitroglycerin, 1mg Lidocaine and 5000 U Heparin were given through the arterial sheath. The papa catheter was also used to perform left heart catheterization, left ventriculogram and selective coronary angiogram. At the end the diagnostic angiogram therapeutic heparin was administered giving a therapeutic ACT and the guide catheter was placed in the right coronary artery followed by Choice PT extra-support wire. A 2.25 x 12 mm [place] frontier stent was deployed at 20 ramirez reducing the severe stenosis to 0%. ELIZABETH-3 flow was present before and after the procedure. At the end the procedure the apparatus was removed the sheath was removed and hemostasis was achieved and TR banding patient was transferred to the postop putting in stable condition ANGIOGRAPHIC RESULTS The left main artery Normal The left anterior descending artery Has proximal smooth 10% stenosis followed by a proximal to mid vessel stent which is widely patent free of in-stent restenosis with excellent proximal distal transitioning. A large first diagonal artery has a proximal concentric 60 to 70% stenosis. This is a 2.25 mm vessel. The LAD is a large vessel which wraps the apex The circumflex artery Is nondominant and has mid vessel 30 and 40% stenoses The right coronary artery Is a dominant vessel and has proximal 40% eccentric stenosis with a mid vessel 90% stenosis immediately distal to the RV marginal branch. Distally there is a 70 to 80% stenosis immediately proximal to a small to medium sized posterior descending artery and posterior lateral branch The JIMENEZ ventriculogram reveals Not performed The left ventricular end-diastolic pressure Not measured IMPRESSION Coronary disease as described above Successful stenting of the mid dominant right coronary severe disease reduced to 0% with 1 drug-eluting stent Persistent stenoses of the large first diagonal artery as described above as well as distal dominant right coronary as described above PLAN 1. Repeat echocardiogram with Definity to determine if LV thrombus is present 2. Dual antiplatelet therapy 3. Recommend dobutamine echo in 3 to 4 weeks to make sure patient does not have low cardiac output severe aortic stenosis based on new onset cardiomyopathy 4. LDL less than 55 to be achieved with high intensity statin 5. 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 Cardiac rehabilitation 7. Avoidance of tobacco products Electronically signed by : Abel Grigsby MD 09/17/2022 14:52:23
--- NOTE | 2022-09-17 05:07 | PC.NURSE ---
Patient has rested through the night. no complaints were stated by patient. Patient did get a shower and has been NPO since Midnight
[2022-09-17 06:23] LABS: Alanine Aminotransferase 21 U/L (12-78); Albumin Level 3.4 g/dl (3.5-5.0); Alkaline Phosphatase 108 U/L (38-126); Anion Gap 11.3 mEq/L (5-15); Aspartate Amino Transferase 32 U/L (17-59); Bilirubin,Indirect 0.6 mg/dL (0.0-0.9); Bilirubin,Total 0.6 mg/dl (0.2-1.3); Bilirubin,Unconjugated 0.9 mg/dL (0.0-1.1); Blood Urea Nitrogen 23 mg/dl (9-20); Calcium 8.3 mg/dl (8.4-10.2); Carbon Dioxide 25 mmol/L (22.0-30.0); Chloride 106 mmol/L (98-107); Creatinine Clearance Estimated 34 mL/min (50-200); Estimated Glomerular Filt Rate 44 ml/min (>60); GFR (African American) 54 ML/MIN (>60); Glucose 109 mg/dl (74-100); Potassium 4.3 mmoL/L (3.5-5.1); Sodium 138 mmol/L (136-145); Total Protein,Serum 6.1 g/dl (6.3-8.2)
[2022-09-17 06:39] LABS: Alanine Aminotransferase 21 U/L (12-78); Albumin Level 3.3 g/dl (3.5-5.0); Albumin/Globulin Ratio 1.4 (1.1-1.8); Alkaline Phosphatase 107 U/L (38-126); Anion Gap 10.6 mEq/L (5-15); Aspartate Amino Transferase 23 U/L (17-59); Basophils % 0.3 % (0.1-2.0); Bilirubin,Total 0.6 mg/dl (0.2-1.3); Blood Urea Nitrogen 23 mg/dl (9-20); Calcium 8.3 mg/dl (8.4-10.2); Carbon Dioxide 24 mmol/L (22.0-30.0); Chloride 107 mmol/L (98-107); Chol/HDL Ratio 3.5 (1-3.5); Cholesterol 87 mg/dl (140-200); Creatinine Clearance Estimated 34 mL/min (50-200); Eosinophils # 0.4 K/mm3 (0.0-0.4); Eosinophils % 5.1 % (0.1-12.0); Estimated Glomerular Filt Rate 44 ml/min (>60); GFR (African American) 54 ML/MIN (>60); Globulin 2.4 g/dL (1.3-3.2); Glucose 108 mg/dl (74-100); HDL Cholesterol 25 mg/dl (40-60); Hematocrit 44.1 % (42.0-52.0); Hemoglobin 14.2 g/dL (14.1-18.0); Lymphocytes # 1.3 K/mm3 (0.7-4.5); Lymphocytes % 17.2 % (10-50); Magnesium 1.8 mg/dl (1.6-2.3); Mean Corpuscular HGB Conc 32.3 g/dL (31.8-35.4); Mean Platelet Volume 10.1 fl (7.4-10.4); Monocytes # 0.8 K/mm3 (0.1-1.0); Monocytes % 10.3 % (1.7-9.3); Neutrophils # 4.9 K/mm3 (1.8-7.8); Platelet Count 177 K/mm3 (142-424); Potassium 4.6 mmoL/L (3.5-5.1); Red Cell Distribution Width 13.6 % (11.5-17.5); Sodium 137 mmol/L (136-145); Total Protein,Serum 5.7 g/dl (6.3-8.2); Triglycerides 135 mg/dl (30-150); VLDL Cholesterol 27 mg/dL (0-40); White Blood Count 7.3 K/mm3 (4.8-10.8)
--- NOTE | 2022-09-17 10:07 | EXP.CARD.PN ---
Subjective Subjective Date: 09/17/22 Time: 08:45 Principal diagnosis: CHF, LV dysfunction Interval history: This is an 87-year-old white gentleman who was admitted to the hospital with heart failure with reduced ejection fraction and possible LV thrombus. The patient has been having chest pain after eating. He attributes this to his GERD. He states that he gets a pressure sensation in the center of his chest and it does not radiate but only occurs with exertion. It improves with rest. He has also been more short of breath in the last several weeks. He states that he notices this with any amount of exertion. It improves with rest. He denies any lower extremity edema. He denies any fever, chills, nausea, vomiting, diarrhea, PND or orthopnea. The patient has been started on Lovenox for the possible LV thrombus. Exam Data for Last 24 hours Vital signs and Labs for Last 24 Hours: Temp Pulse Resp BP Pulse Ox 98.0 F 66 16 113/57 L 93 L 09/17/22 08:00 09/17/22 08:00 09/17/22 08:00 09/17/22 08:00 09/17/22 08:00 Laboratory Results - last 24 hr 09/16/22 02:17: SARS-CoV-2 (PCR) Not detected, Influenza A Untype (PCR) Not detected, Influenza Type B (PCR) Not detected 09/16/22 13:09: WBC 8.9, RBC 5.10, Hgb 14.8, Hct 45.8, MCV 89.7, MCH 28.9, MCHC 32.2, RDW 13.5, Plt Count 169, MPV 8.9, Neut % (Auto) 79.8, Lymph % (Auto) 11.1, [place] % (Auto) 6.7, Eos % (Auto) 2.0, Baso % (Auto) 0.4, Neut # (Auto) 7.1, Lymph # (Auto) 1.0, [place] # (Auto) 0.6, Eos # (Auto) 0.2, Baso # (Auto) 0.0, Sodium 139, Potassium 4.6, Chloride 105, Carbon Dioxide 26, Anion Gap 12.6, BUN 17, Creatinine 1.40 H, Estimated Creat Clear 37, Estimated GFR 48 L, Est GFR ( Amer) 58 L, Glucose 134 H, Calcium 8.8, Magnesium 1.9, Total Bilirubin 0.6, AST 30, ALT 28, Alkaline Phosphatase 134 H, Troponin I < 0.01, Total Protein 7.0, Albumin 4.1, Globulin 2.9, Albumin/Globulin Ratio 1.4 09/17/22 05:28: WBC 7.3, RBC 4.90, Hgb 14.2, Hct 44.1, MCV 90.0, MCH 29.0, MCHC 32.3, RDW 13.6, Plt Count 177, MPV 10.1, Neut % (Auto) 67.0, Lymph % (Auto) 17.2, [place] % (Auto) 10.3 H, Eos % (Auto) 5.1, Baso % (Auto) 0.3, Neut # (Auto) 4.9, Lymph # (Auto) 1.3, [place] # (Auto) 0.8, Eos # (Auto) 0.4, Baso # (Auto) 0.0, Sodium 138 09/17/22 05:28: Sodium 137, Potassium 4.3 09/17/22 05:28: Potassium 4.6, Chloride 106 09/17/22 05:28: Chloride 107, Carbon Dioxide 25 09/17/22 05:28: Carbon Dioxide 24, Anion Gap 11.3 09/17/22 05:28: Anion Gap 10.6, BUN 23 H D 09/17/22 05:28: BUN 23 H, Creatinine 1.50 H 09/17/22 05:28: Creatinine 1.50 H, Estimated Creat Clear 34 09/17/22 05:28: Estimated Creat Clear 34, Estimated GFR 44 L 09/17/22 05:28: Estimated GFR 44 L, Est GFR ( Amer) 54 L 09/17/22 05:28: Est GFR ( Amer) 54 L, Glucose 109 H 09/17/22 05:28: Glucose 108 H, Calcium 8.3 L 09/17/22 05:28: Calcium 8.3 L, Magnesium 1.8, Total Bilirubin 0.6 09/17/22 05:28: Total Bilirubin 0.6, Direct Bilirubin 0.0, Conjugated Bilirubin 0.0, Indirect Bilirubin 0.6, Unconjugated Bilirubin 0.9, AST 32 09/17/22 05:28: AST 23 D, ALT 21 09/17/22 05:28: ALT 21, Alkaline Phosphatase 108 09/17/22 05:28: Alkaline Phosphatase 107, Total Protein 6.1 L 09/17/22 05:28: Total Protein 5.7 L, Albumin 3.4 L D 09/17/22 05:28: Albumin 3.3 L, Globulin 2.4, Albumin/Globulin Ratio 1.4, Triglycerides 135, Cholesterol 87 L, LDL Cholesterol Direct 42.30 L, VLDL Cholesterol 27, HDL Cholesterol 25 L, Cholesterol/HDL Ratio 3.5 I & O for Last 24 hours: Intake & Output 09/14/22 09/15/22 09/16/22 09/17/22 23:59 23:59 23:59 23:59 Intake Total 600 / 600 Output Total 0 / 0 0 / 0 Balance 600 / 600 0 / 0 Weight 153 lb 4 oz 150 lb 5 oz Narrative: Echocardiogram shows an ejection fraction of 23% with moderate MR and mild to moderate aortic stenosis. There is grade 2 diastolic dysfunction. No LV thrombus is noted on the official echocardiogram interpretation. Constitutional Constitutional: no acute distress and average body habitus *Routine H
[2022-09-17 13:10] LABS: CATHL Activated Clotting Time 323 SEC (74-125)
--- NOTE | 2022-09-17 13:46 | EXP.DC.SUM ---
General Admission date:: 09/16/22 Discharge date: 09/17/22 HPI HPI HPI: 87-year-old male with history of heart failure with reduced ejection fraction, hyperlipidemia, history of tobacco use disorder. Presented to cardiology for stress testing. Found to have acute worsening with an EF approximately 25% on nuclear scan. Also found to have presence of possible LV thrombus. Discussed case with cardiology, requested admission for initiation of anticoagulation, and monitoring. Patient may necessitate LATHE HAND-D therapy in the immediate future. Patient states he has some occasional shortness of breath. Occasional chest discomfort that he attributes to his chronic GERD. 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 Denies any pain with exertion. No nausea or vomiting. Stable on room air. Alert and oriented x4. Hospital Course Hospital Course Hospital Course: 87-year-old male with history of coronary artery disease, hypertension, CKD, mild reduction in EF previously. Presented for outpatient stress testing today. Results concerning for worsening of his heart failure and possible LV thrombus. Admitted for further management. Patient taken for left heart cath, had significant disease in RCA requiring stenting. Repeat echo performed with Definity showing no thrombus. EF however reduced to 25%. Discussed risks and benefits of LifeVest. 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 He will have close follow-up with cardiology. Stable for discharge home. Problems addressed as follows: Acute on chronic heart failure with reduced ejection fraction LV thrombus CAD Hyperlipidemia Hypertension -Status post stress test 09/16, concerning for worsening reduction in ejection fraction. Prolonged QRS. Discussed case with cardiology, request admission for initiation of anticoagulation therapy as well as further management with possible LATHE HAND-D placement. Monitored on telemetry. Continued his home regimen of atenolol 50 mg daily, Lipitor 40 mg daily, and isosorbide 30 mg daily. Patient was initiated on Lovenox 70 mg twice daily out of concern for possible LV thrombus. Repeat echocardiogram was performed with Definity to clarify presence or absence of thrombus. Thrombus determined to not be present. Will not discharge home on any anticoagulation beyond Brilinta and aspirin. Left heart cath performed showing RCA stenosis. Stent deployed. Good results achieved. See cath report for full details. Initiated on aspirin 81 mg daily and Brilinta 90 mg twice daily. Stable to discharge home. Close follow-up with cardiology next week to monitor kidney function and electrolytes. And evaluate tolerance of Entresto which was begun on day of discharge as well. CKD: Baseline 1.3-1.4. At baseline today. Caution with nephrotoxins. Caution with IV contrast. Needs repeat CMP the day of his appointment next Wednesday. BPH: Continue home tamsulosin 0.4 mg daily and finasteride 5 mg daily. Continue home omeprazole 40mg daily for GERD Stable for discharge home. Patient inpatient from the start of admission due to degree of heart failure and necessity for intervention. Exam Data for Last 24 hours Vital signs and Labs for Last 24 Hours: Temp Pulse Resp BP Pulse Ox O2 Del Method 98.0 F 63 18 129/50 L 97 Room Air 09/17/22 08:00 09/17/22 13:00 09/17/22 13:00 09/17/22 13:00 09/17/22 13:00 09/17/22 13:00 Laboratory Results - last 24 hr 09/16/22 02:17: SARS-CoV-2 (PCR) Not detected, Influenza A Untype (PCR) Not detected, Influenza Type B (PCR) Not detected 09/16/22 13:09: Troponin I < 0.01 09/17/22 05:28: WBC 7.3, RBC 4.90, Hgb 14.2, Hct 44.1, MCV 90.0, MCH 29.0, MCHC 32.3, RDW 13.6, Plt Count 177, MPV 10.1, Neut % (Auto) 67.0, Lymph % (Auto) 17.2, [place] % (Auto) 10.3 H, Eos % (Auto) 5.1, Baso % (Auto) 0.3, Neut # (Auto) 4.9, Lymph # (Auto) 1.3, [place] # (Auto) 0.8, Eos # (Auto) 0.4, Baso # (Auto) 0.0, Sodium 138
--- NOTE | 2022-09-17 15:27 | HMH.PHAINT1 ---
Pharmacy Intervention Comments: Patient's discharge medications discussed with patient: - Brillinta (Blood thinner, watch for cuts as they may bleed easier, watch for new bruising) - Entresto (Monitor blood pressure) -Stop Amlodipine Patient had no further questions at this time. -Dov Doherty, Pharm Student
--- NOTE | 2022-09-18 13:25 | CARE MANAGER ---
Contacted patient related to hospital discharge. He had difficulty hearing. He did say that he was going to stop by Dr. Grigsby's office to ask about a medication and he is feeling some better.
== END 2022-09-17 18:35 | disposition home or self-care (01) | DRG 246 ==
PROVIDERS: Internal Medicine; Nurse Practitioner Family; Admitting Provider Internal Medicine Adolescent Medicine; PCP Family Medicine; Visit Provider Internal Medicine Adolescent Medicine
PROC: 027034Z Dilation of Coronary Artery, One Artery with Drug-eluting Intraluminal Device, Percutaneous Approach (ICD-10-PCS; principal; 2022-09-17 13:00)
DX: I13.0 Hypertensive heart and chronic kidney disease with heart failure and stage 1 through stage 4 chronic kidney disease, or unspecified chronic kidney disease (principal); I50.23 Acute on chronic systolic (congestive) heart failure; N18.4 Chronic kidney disease, stage 4 (severe); I25.119 Atherosclerotic heart disease of native coronary artery with unspecified angina pectoris; H91.90 Unspecified hearing loss, unspecified ear; Z87.891 Personal history of nicotine dependence; I35.0 Nonrheumatic aortic (valve) stenosis; I25.5 Ischemic cardiomyopathy; E78.2 Mixed hyperlipidemia; Z95.5 Presence of coronary angioplasty implant and graft; K21.9 Gastro-esophageal reflux disease without esophagitis; N40.0 Benign prostatic hyperplasia without lower urinary tract symptoms
CPT/HCPCS: 36415; 78452; 80048; 80053; 80061; 80076; 83735; 84484; 85025; 85347; 87636; 92928; 93017; 93306; 93308; 93458; 93880; 99152; A9502; C1725; C1769; C1876; C9600; J1644; J2785; Q9957; Q9967

== ENCOUNTER → 2022-09-21 09:17 | Outpatient (CLI) | payer MEDICARE, OTHER, SELFPAY ==
[2022-09-21 10:59] LABS: Anion Gap 14.1 mEq/L (5-15); Blood Urea Nitrogen 21 mg/dl (9-20); Calcium 8.6 mg/dl (8.4-10.2); Carbon Dioxide 20 mmol/L (22.0-30.0); Chloride 109 mmol/L (98-107); Estimated Glomerular Filt Rate 48 ml/min (>60); GFR (African American) 58 ML/MIN (>60); Glucose 186 mg/dl (74-100); Potassium 4.1 mmoL/L (3.5-5.1); Sodium 139 mmol/L (136-145)
== END ==
PROVIDERS: Internal Medicine Adolescent Medicine; PCP Family Medicine; Visit Provider Internal Medicine
DX: N17.9 Acute kidney failure, unspecified (principal)
CPT/HCPCS: 36415; 80048

== ENCOUNTER → 2022-09-24 14:20 | Outpatient (CLI) | payer MEDICARE, OTHER, SELFPAY ==
[2022-09-26 10:19] LABS: PSA, Free 0.82 ng/mL; Prostate Specific Ag 7.1 ng/mL (0.0-4.0)
== END ==
PROVIDERS: PCP Family Medicine; Visit Provider Urology
DX: R97.20 Elevated prostate specific antigen [PSA] (principal)
CPT/HCPCS: 36415; 84153; 84154

== ENCOUNTER → 2022-10-23 07:38 | Outpatient (CLI) | payer MEDICARE, OTHER, SELFPAY ==
--- NOTE | 2022-10-23 07:40 | CA_ITS ---
APPROVED REPORT EXAM: Limited 2D, Doppler, and color-flow Echocardiogram Valving Machine Operator: Iesha Webb RT(R) Ht: 5 ft 6 in Wt: 154lbs BSA: 1.79 BP: 127/67 mmHg Indications: Limited echo to reassess EF. EF echo 09/16/22 23%, CHF, CKD, CAD, CM, recent stent (09/17/22), HTN, hyperlipidemia, CM 2D Dimensions LVEF (Jeffrey's) 23.20 % M: 52 - 72 LV Volume 196.80 mL M: 62 - 150 LV Volume Index 109.94 mL/m2 M: 34 - 74 M-Mode Dimensions RVDd 2.71 cm (0.9-2.6) LVDd 6.31 cm (3.5-5.7) LVDs 5.64 cm (3.5-5.7) IVSd 0.87 cm (0.6-1.1) PWd 0.92 cm (0.6-1.1) EF (Teich) 22.60% FS 10.60% EDV (Teich) 201.90 mL ESV (Teich) 156.20 mL LV Diastology E Decel Time 180.00 (160-240 msec) E/A Ratio 0.7 MED E' 3.80 (< 7 cm/sec) E'/MED E' Ratio 22.82 (>14) LAT E' 4.40 (<10 cm/sec) E/LAT E' Ratio 19.70 (>14) Mitral Valve MV E Max Jamaal. 87.00 (40-130 cm/s) MV A Velocity 132.00 (40-130 cm/s) E/A Ratio 0.66 MV Decel. Time 180.00 (160-240 ms) MV PHT 53.00 ms Left Ventricle The left ventricle is severely dilated. Left ventricular systolic function is severely decreased. There is normal left ventricular wall thickness. There is severe global hypokinesis. There is grade II diastolic dysfunction present. The inferior, inferolateral, inferoseptal LV mcintyre appear nearly akinetic. LVEF is 20-25%. Right Ventricle The right ventricle is normal size. The right ventricular systolic function is normal. Atria Left atrium is moderately dilated. Right atrium is mildly dilated. Aortic Valve The aortic valve is not well visualized. Mitral Valve The mitral valve is normal in structure. No evidence of mitral valve stenosis. Moderate mitral regurgitation. Tricuspid Valve The tricuspid valve leaflets are thin and pliable. Pulmonic Valve The pulmonic valve is not well visualized. Great Vessels The aortic root is normal in size. The IVC is not well visualized. Pericardium There is no pericardial effusion. Other Information Study Quality: Adequate Conclusion This was a limited TTE to evaluate for LVEF. Limited windows were obtained. Severely dilated LV (XRLFEc=709 mL/m2) with severe reduction in LV systolic function (LVEF 20-25%). Grade II diastolic dysfunction. Near-akinesis of the inferior, inferoseptal, and inferolateral LV mcintyre Biatrial enlargement Moderate MR Compared to prior study from 09/17/2022, there is overall no change in LVEF or severity of MR. Electronically signed by : Christianne Redd, 10/24/2022 16:29:08
== END ==
PROVIDERS: PCP Family Medicine; Visit Provider Physician Assistant
DX: I42.0 Dilated cardiomyopathy (principal); R06.09 Other forms of dyspnea
CPT/HCPCS: 93308

== ENCOUNTER 2022-11-18 15:10 | Observation (INO) | payer MEDICARE, OTHER, SELFPAY ==
--- NOTE | 2022-11-18 15:26 | PC.NURSE ---
arrived from admissions by w/c
--- NOTE | 2022-11-18 15:30 | PC.NURSE ---
pt admitted to 219 as direct admit, MD Finley notified, putting in orders at this time
[2022-11-18 15:37] VITALS: PULSE 80
--- NOTE | 2022-11-18 15:38 | EXP.HP ---
History of Present Illness *Admission Date: 11/18/22 *Reason for visit:: dyspnea on exertion *History of present illness: 87-year-old male with history of heart failure with reduced ejection fraction, hyperlipidemia, history of tobacco use disorder. Presented to cardiology because of worsening shortness of breath over the past 3 weeks. Patient states that since his admission a month ago with stenting of his RCA, he has gradually developed increased shortness of breath. Was seen at his PCPs office today where chest x-ray was obtained showing increased pulmonary edema. Sent to cardiology for further evaluation. Cardiology consulted hospital medicine for direct admission for further management of acute on chronic CHF. Patient denies any chest pain, nausea, vomiting, diarrhea. No headache or confusion. Vitals stable on room air. Alert and oriented x4. at bedside states that patient's been unable to walk to the mailbox without feeling short of breath. Cardiac history from chart review as follows: CAD-Hx CHARLI RCA (2022) Hx CHARLI LAD/RCA 05/2018 HTN-BP acceptable Creatinine 1.40 Diastolic dysfunction, stable. HLD-LDL goal is < 55. LDL is 42(2022) Aortic stenosis-Moderate,stable. Mitral Regurgitation-moderate, stable. Grade II diastolic dysfunction. Biatrial enlargement Cardiomyopathy is present, EF 20-25% (10/2022) MARC is stable, less than 50% bilateral ICA (2022) [facility] Disclaimer: The information contained in this section may have been updated after the patient was seen, as this information can be updated by other users. 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 Dyspnea Dyspnea on exertion Former smoker Hard of hearing History of 2019 novel coronavirus disease (COVID-19) History of smoking 30 or more pack years HTN (hypertension) LV dysfunction Mitral regurgitation Murmur, heart Pulmonary emphysema SOB (shortness of breath) Systolic heart failure Tobacco user Surgical History H/O heart artery stent History of cardiac cath Family History Kidney disease Heart disease Social History Smoking Status: Former smoker alcohol intake: never substance use type: denies use 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 Travel in the last 8 weeks: None household members: spouse Review of Systems Review of Systems Review of systems (narrative): 14 point review of systems performed, pertinent positives and negatives as per [facility] Meds Home Medications and Allergies Home Medications Medication Instructions Recorded Confirmed Type finasteride 5 mg tablet 5 mg PO HS prostate 09/07/17 11/18/22 History aspirin 81 mg tablet,delayed 81 mg PO DAILY Heart disease 05/16/18 11/18/22 History release (Aspir-) tamsulosin 0.4 mg capsule 0.4 mg PO HS prostate 05/16/18 11/18/22 History atenolol 50 mg tablet 50 mg PO HS Blood Pressure 09/16/22 11/18/22 History atorvastatin 40 mg tablet 40 mg PO HS Cholesterol 09/16/22 11/18/22 History omeprazole 40 mg capsule,delayed 40 mg PO DAILY Acid Reflux 09/16/22 11/18/22 History release sacubitril 24 mg-valsartan 26 mg 1 tab PO BID 30 days #60 tabs 09/17/22 11/18/22 Rx tablet (Entresto) clopidogrel 75 mg tablet (Plavix) 75 mg PO QDAY #30 tabs 10/14/22 11/18/22 Rx isosorbide mononitrate 30 mg 30 mg PO DAILY Chest Pain #90 tabs 10/23/22 11/18/22 Rx tablet,extended release 24 hr albuterol sulfate 90 mcg/actuation 2 puff inhalation QID PRN 10/29/22 11/18/22 Rx aerosol inhaler (ProAir HFA) shortness of breath or wheezing 90 days #8.5 grams cholecalciferol (vitamin D3) 50 50 mcg PO DAILY 10/29/22 11/18/22 History mcg (2,000 unit) capsu
--- NOTE | 2022-11-18 15:45 | PC.NURSE ---
placed 20G left forearm
[2022-11-18 15:48] VITALS: BP 120/70; PULSE 90; RESP 20; TEMP 36.6; O2SAT 95; BMI 22.4
[2022-11-18 16:00] VITALS: BP 116/71; PULSE 75; PULSE 80; RESP 27; O2SAT 95
[2022-11-18 16:51] VITALS: BMI 23.7
[2022-11-18 17:36] LABS: Basophils % 0.4 % (0.1-2.0); Eosinophils # 0.4 K/mm3 (0.0-0.4); Eosinophils % 4.8 % (0.1-12.0); Hematocrit 37.2 % (42.0-52.0); Hemoglobin 12.1 g/dL (14.1-18.0); Lymphocytes # 0.8 K/mm3 (0.7-4.5); Lymphocytes % 9.4 % (10-50); Mean Corpuscular HGB Conc 32.4 g/dL (31.8-35.4); Mean Corpuscular Hemoglobin 29.5 pg (27.0-31.2); Mean Corpuscular Volume 90.8 fl (80-94); Mean Platelet Volume 10.2 fl (7.4-10.4); Monocytes # 0.7 K/mm3 (0.1-1.0); Monocytes % 8.3 % (1.7-9.3); Neutrophils # 6.3 K/mm3 (1.8-7.8); Neutrophils % 77.1 % (37.0-80.0); Platelet Count 256 K/mm3 (142-424); Red Cell Distribution Width 13.6 % (11.5-17.5); White Blood Count 8.2 K/mm3 (4.8-10.8)
[2022-11-18 17:40] LABS: Alanine Aminotransferase 17 U/L (12-78); Albumin Level 3.1 g/dl (3.5-5.0); Alkaline Phosphatase 85 U/L (38-126); Anion Gap 13.1 mEq/L (5-15); Aspartate Amino Transferase 26 U/L (17-59); Bilirubin,Total 0.5 mg/dl (0.2-1.3); Blood Urea Nitrogen 20 mg/dl (9-20); Calcium 8.2 mg/dl (8.4-10.2); Carbon Dioxide 19 mmol/L (22.0-30.0); Chloride 112 mmol/L (98-107); Creatinine Clearance Estimated 37 mL/min (50-200); Estimated Glomerular Filt Rate 48 ml/min (>60); GFR (African American) 58 ML/MIN (>60); Glucose 141 mg/dl (74-100); Magnesium 1.8 mg/dl (1.6-2.3); Potassium 4.1 mmoL/L (3.5-5.1); Sodium 140 mmol/L (136-145); Total Protein,Serum 6.1 g/dl (6.3-8.2)
[2022-11-18 17:59] LABS: Troponin I 0.03 ng/ml (0.00-0.034)
[2022-11-18 18:00] VITALS: BP 126/63; PULSE 84; RESP 29; O2SAT 94
[2022-11-18 18:13] LABS: NT Pro Brain Natriuretic Pep. 19200 pg/mL (0-450)
--- NOTE | 2022-11-18 18:32 | PC.NURSE ---
pt resting well, HR 80's on dobutamine drip at 5mcg/kg/min, pt voiding per urinal with good response to lasix given per emar, at bedside, call light within reach
--- NOTE | 2022-11-18 18:34 | ECG_ITS ---
APPROVED REPORT Exam: Resting ECG HR:93 bpm ECG Measurements Heart Rate 93 AXES OR 144 P 46 QRSd 166 QRS -30 QT 422 T 81 QTc 473 Conclusion SINUS RHYTHM WITH FREQUENT VENTRICULAR PREMATURE COMPLEXES POSSIBLE LEFT ATRIAL ENLARGEMENT [-0.1mV P-WAVE IN V1/V2] LEFT BUNDLE BRANCH BLOCK [120+ ms QRS DURATION, 80+ ms Q/S IN V1/V2, 85+ ms R IN I/aVL/V5/V6] ABNORMAL ECG UNCONFIRMED REPORT Electronically signed by : Prasad Adam MD 11/19/2022 19:58:51
[2022-11-18 20:00] VITALS: BP 119/63; PULSE 79; PULSE 80; RESP 16; O2SAT 100; O2SAT 97
[2022-11-18 22:00] VITALS: BP 122/67; PULSE 89; RESP 15; O2SAT 100
--- NOTE | 2022-11-18 22:13 | PC.NURSE ---
Dobutamine titrated to 2.5mcg/kg/min at 1930.
--- NOTE | 2022-11-18 22:26 | ECG_ITS ---
APPROVED REPORT Exam: Resting ECG HR:80 bpm ECG Measurements Heart Rate 80 AXES OH 144 P 48 QRSd 163 QRS 2 QT 419 T 88 QTc 456 Conclusion SINUS RHYTHM POSSIBLE LEFT ATRIAL ENLARGEMENT [-0.1mV P-WAVE IN V1/V2] LEFT BUNDLE BRANCH BLOCK [120+ ms QRS DURATION, 80+ ms Q/S IN V1/V2, 85+ ms R IN I/aVL/V5/V6] ABNORMAL ECG UNCONFIRMED REPORT Electronically signed by : Prasad Adam MD 11/19/2022 19:57:41
[2022-11-19] VITALS (8 sets, daily range): BP systolic 110–153; BP diastolic 50–69; PULSE 70–92; RESP 14–22; TEMP 36.6–36.7; O2SAT 92–100; BMI 23.7
[2022-11-19 06:17] LABS: Basophils % 0.5 % (0.1-2.0); Eosinophils # 0.5 K/mm3 (0.0-0.4); Eosinophils % 5.6 % (0.1-12.0); Hematocrit 40.5 % (42.0-52.0); Lymphocytes % 12.6 % (10-50); Mean Corpuscular Hemoglobin 29.2 pg (27.0-31.2); Mean Corpuscular Volume 91.1 fl (80-94); Mean Platelet Volume 9.5 fl (7.4-10.4); Monocytes # 0.7 K/mm3 (0.1-1.0); Monocytes % 8.2 % (1.7-9.3); Neutrophils # 5.8 K/mm3 (1.8-7.8); Neutrophils % 73.1 % (37.0-80.0); Platelet Count 235 K/mm3 (142-424); Red Blood Count 4.45 M/mm3 (4.60-6.20); Red Cell Distribution Width 13.7 % (11.5-17.5); White Blood Count 7.9 K/mm3 (4.8-10.8)
[2022-11-19 06:21] LABS: Alanine Aminotransferase 16 U/L (12-78); Albumin Level 3.3 g/dl (3.5-5.0); Albumin/Globulin Ratio 1.1 (1.1-1.8); Alkaline Phosphatase 107 U/L (38-126); Anion Gap 13.6 mEq/L (5-15); Aspartate Amino Transferase 19 U/L (17-59); Bilirubin,Total 0.4 mg/dl (0.2-1.3); Blood Urea Nitrogen 21 mg/dl (9-20); Calcium 8.4 mg/dl (8.4-10.2); Carbon Dioxide 22 mmol/L (22.0-30.0); Chloride 109 mmol/L (98-107); Chol/HDL Ratio 4.9 (1-3.5); Cholesterol 88 mg/dl (140-200); Creatinine Clearance Estimated 34 mL/min (50-200); Estimated Glomerular Filt Rate 44 ml/min (>60); GFR (African American) 54 ML/MIN (>60); Globulin 2.9 g/dL (1.3-3.2); Glucose 111 mg/dl (74-100); HDL Cholesterol 18 mg/dl (40-60); Magnesium 1.8 mg/dl (1.6-2.3); Potassium 3.6 mmoL/L (3.5-5.1); Sodium 141 mmol/L (136-145); Total Protein,Serum 6.2 g/dl (6.3-8.2); Triglycerides 98 mg/dl (30-150); VLDL Cholesterol 20 mg/dL (0-40)
[2022-11-19 06:32] LABS: Direct LDL Cholesterol 43.69 mg/dL (100-129)
--- NOTE | 2022-11-19 07:00 | CA_ITS ---
APPROVED REPORT EXAM: Comprehensive 2D, Doppler, and color-flow Echocardiogram Supervisor Covering And Lining: Rosaura Whitten CRT Ht: 5 ft 6 in Wt: 153lbs BSA: 1.78 BP: 115/54 mmHg Indications: CHF,,CAD,CM,HTN,HLP,SOA 2D Dimensions LVOT 1.74 cm (M/F) 1.5-2.5 LA Volume 100.20 mL LA Volume Index 55.98 mL/m2 (M/F) 16-34 M-Mode Dimensions RVDd 2.43 cm (0.9-2.6) LA Diam 4.34 cm (1.9-4.0) LVDd 6.83 cm (3.5-5.7) Ao Diam 3.69 cm (2.0-3.7) LVDs 6.08 cm (3.5-5.7) IVSd 0.50 cm (0.6-1.1) PWd 0.86 cm (0.6-1.1) EF (Teich) 23.20% FS 11.00% EDV (Teich) 241.60 mL ESV (Teich) 185.50 mL LV Diastology E Decel Time 177.00 (160-240 msec) E/A Ratio 0.6 MED E' 3.50 (< 7 cm/sec) E'/MED E' Ratio 16.29 (>14) LAT E' 7.30 (<10 cm/sec) E/LAT E' Ratio 7.81 (>14) Aortic Valve LVOT Max 141.00 (70-110 cm/s) LVOT VTI 28.72 cm AoV Peak Jamaal. 227.00 (50-130 cm/s) AO Peak GR. 20.50 mmHg AO Mean GR. 10.20 (<5 mmHg) AO VTI 43.75 (18-25 cm) CELINA (VTI) 1.56 (2.5-4.5 cm2) Mitral Valve MV E Max Jamaal. 57.00 (40-130 cm/s) MV A Velocity 98.00 (40-130 cm/s) E/A Ratio 0.58 MV Decel. Time 177.00 (160-240 ms) MV PHT 52.00 ms Left Ventricle Left ventricle is severely dilated. Left ventricular systolic function is severely decreased. There is normal left ventricular wall thickness. There is severe global hypokinesis. The septal, inferior, inferoseptal, and inferolateral LV mcintyre, including the inferoapical regions, appear akinetic. Grade II diastolic dysfunction is present. LVEF is 20-25%. Right Ventricle The right ventricle is normal size. The right ventricular systolic function is normal. Atria Left atrium is severely dilated. The right atrium size is normal. There is no Doppler evidence of interatrial shunt. Aortic Valve The aortic valve is mildly thickened. Mild aortic valvular stenosis. CELINA is 1.6 cm2. Peak velocity is 2.2 m/s. Mean AV gradient is 10 mmHg. Peak AV gradient is 20 mmHg. DI=0.57. SVi=40 ml/m2. Trace aortic regurgitation. Mitral Valve The mitral valve is normal in structure. No evidence of mitral valve stenosis. Moderate mitral regurgitation. Tricuspid Valve The tricuspid valve leaflets are thin and pliable. Trace tricuspid regurgitation. RVSP is normal. Pulmonic Valve The pulmonary valve is normal in structure. Trace pulmonic regurgitation. Great Vessels The aortic root is normal in size. The ascending aorta is not well visualized. IVC is normal in size and collapses >50% with inspiration. Pericardium Trivial pericardial effusion. Other Information Study Quality: Fair Conclusion Severely reduced LV systolic function. Inferior, septal, inferoseptal, and inferolateral wall motion abnormalities. Grade II diastolic dysfunction. Biatrial enlargement. Moderate MR. Mild . Trivial pericardial effusion. Compared to prior study from 10/23/2022, there are overall no significant changes. Electronically signed by : Christianne Redd, 11/24/2022 18:55:47
--- NOTE | 2022-11-19 07:41 | HMH.PHAINT1 ---
Pharmacy Intervention Comments: Medication history complete, medications [facility] Of note, patient filled and picked up Brillinta on 09/18 for a 30 day supply but takes Plavix per the med list sent [facility] me [facility] the [facility]. Patient also finished a course of amoxicillin per the [facility] paperwork. - Casie Sandhu, PharmD Candidate 2023
--- NOTE | 2022-11-19 11:01 | EXP.CARD.PN ---
Subjective Subjective Date: 11/19/22 Time: 08:30 Principal diagnosis: HFrEF, Interval history: This is an 87-year-old white gentleman who presented to the cardiology clinic with worsening shortness of breath over the past 3 weeks. The patient states that he felt like he was unable to get a deep breath. He just felt more and more shortness of breath over time. He denies any chest pain or pressure. He denies any lower extremity edema. He denies any fever, chills, nausea, vomiting or diarrhea. He does have some associated orthopnea with his shortness of breath. The patient went to his primary care provider's office yesterday and a chest x-ray showed pulmonary edema. The patient was then sent here to [facility] cardiology clinic and the patient was admitted to the hospital for an acute exacerbation of his systolic congestive heart failure. The patient was started on dobutamine drip overnight as well as IV Lasix. The patient did diurese approximately 2 L. He states that his shortness of breath has significantly improved this morning and he is feeling much better. He states that he is able to take deep breaths now and he is able to walk to the bathroom without significant shortness of breath. He states he feels much better and would like to be discharged home today. Exam Data for Last 24 hours Vital signs and Labs for Last 24 Hours: Temp Pulse Resp BP Pulse Ox O2 Del Method 97.8 F 92 H 22 153/69 H 92 L Room Air 11/19/22 08:00 11/19/22 10:00 11/19/22 10:00 11/19/22 10:00 11/19/22 10:00 11/19/22 10:00 Laboratory Results - last 24 hr 11/18/22 16:15: WBC 8.2, RBC 4.10 L, Hgb 12.1 L, Hct 37.2 L, MCV 90.8, MCH 29.5, MCHC 32.4, RDW 13.6, Plt Count 256, MPV 10.2, Neut % (Auto) 77.1, Lymph % (Auto) 9.4 L, Trimble % (Auto) 8.3, Eos % (Auto) 4.8, Baso % (Auto) 0.4, Neut # (Auto) 6.3, Lymph # (Auto) 0.8, Trimble # (Auto) 0.7, Eos # (Auto) 0.4, Baso # (Auto) 0.0, Sodium 140, Potassium 4.1, Chloride 112 H, Carbon Dioxide 19 L, Anion Gap 13.1, BUN 20, Creatinine 1.40 H, Estimated Creat Clear 37, Estimated GFR 48 L, Est GFR ( Amer) 58 L, Glucose 141 H, Calcium 8.2 L, Magnesium 1.8, Total Bilirubin 0.5, AST 26, ALT 17, Alkaline Phosphatase 85, Troponin I 0.03, NT-Pro-B Natriuret Pep 05183 H, Total Protein 6.1 L, Albumin 3.1 L, Globulin 3.0, Albumin/Globulin Ratio 1.0 L 11/19/22 05:31: WBC 7.9, RBC 4.45 L, Hgb 13.0 L, Hct 40.5 L, MCV 91.1, MCH 29.2, MCHC 32.0, RDW 13.7, Plt Count 235, MPV 9.5, Neut % (Auto) 73.1, Lymph % (Auto) 12.6, Trimble % (Auto) 8.2, Eos % (Auto) 5.6, Baso % (Auto) 0.5, Neut # (Auto) 5.8, Lymph # (Auto) 1.0, Trimble # (Auto) 0.7, Eos # (Auto) 0.5 H, Baso # (Auto) 0.0, Sodium 141, Potassium 3.6, Chloride 109 H, Carbon Dioxide 22, Anion Gap 13.6, BUN 21 H, Creatinine 1.50 H, Estimated Creat Clear 34, Estimated GFR 44 L, Est GFR ( Amer) 54 L, Glucose 111 H D, Calcium 8.4, Magnesium 1.8, Total Bilirubin 0.4, AST 19 D, ALT 16, Alkaline Phosphatase 107, Total Protein 6.2 L, Albumin 3.3 L, Globulin 2.9, Albumin/Globulin Ratio 1.1, Triglycerides 98, Cholesterol 88 L, LDL Cholesterol Direct 43.69 L, VLDL Cholesterol 20, HDL Cholesterol 18 L, Cholesterol/HDL Ratio 4.9 H I & O for Last 24 hours: Intake & Output 11/16/22 11/17/22 11/18/22 11/19/22 23:59 23:59 23:59 23:59 Intake Total 710 / 710 437 / 437 Output Total 1850 / 1850 1575 / 1575 Balance -1140 / -1140 -1138 / -1138 Weight 151 lb 150 lb 15.984 oz Constitutional Constitutional: no acute distress and average body habitus *Routine HEENT Exam Head: Present normocephalic and atraumatic ENT: Present mucous membranes moist *Routine Neck Exam Neck: Present supple, full ROM and normal carotid upstroke; Absent JVD, carotid bruit or lymphadenopathy *Routine Respiratory Exam Respiratory: Present CTA bilaterally, normal respiratory effort, able to speak in complete sentences and symmetric chest movement *Routine Cardiovascular Exam Cardiovascular: Present RRR, N
--- NOTE | 2022-11-19 11:02 | EXP.DC.SUM ---
General Admission date:: 11/18/22 Discharge date: 11/19/22 HPI HPI HPI: 87-year-old male with history of heart failure with reduced ejection fraction, hyperlipidemia, history of tobacco use disorder. Presented to cardiology because of worsening shortness of breath over the past 3 weeks. Patient states that since his admission a month ago with stenting of his RCA, he has gradually developed increased shortness of breath. Was seen at his PCPs office today where chest x-ray was obtained showing increased pulmonary edema. Sent to cardiology for further evaluation. Cardiology consulted hospital medicine for direct admission for further management of acute on chronic CHF. Patient denies any chest pain, nausea, vomiting, diarrhea. No headache or confusion. Vitals stable on room air. Alert and oriented x4. at bedside states that patient's been unable to walk to the mailbox without feeling short of breath. Cardiac history from chart review as follows: CAD-Hx CHARLI RCA (2022) Hx CHARLI LAD/RCA 05/2018 HTN-BP acceptable Creatinine 1.40 Diastolic dysfunction, stable. HLD-LDL goal is < 55. LDL is 42(2022) Aortic stenosis-Moderate,stable. Mitral Regurgitation-moderate, stable. Grade II diastolic dysfunction. Biatrial enlargement Cardiomyopathy is present, EF 20-25% (10/2022) MARC is stable, less than 50% bilateral ICA (2022) Hospital Course Hospital Course Hospital Course: 87-year-old male with history of coronary artery disease, hypertension, CKD, chronic heart failure with reduced ejection fraction. Presented to cardiology clinic because of worsening shortness of breath with exertion over the past few weeks. Cardiology requested admission for further work-up and management of his CHF. Patient also noted to have significant mitral and aortic valvular disease. Request initiation of diuresis and dobutamine drip with repeat echo in the morning. Monitored overnight with good response to diuresis. Stable on room air. Patient should have been observation admission from the start. At this time he is stable for discharge home with close follow-up as an outpatient. Problems addressed as follows: Acute on chronic heart failure with reduced ejection fraction CAD Hyperlipidemia Hypertension -Discussed case with cardiology, cardiology consulted. Request admission for dobutamine drip and diuresis with Lasix. Given 80 mg IV once on admission and started on dobutamine. Echo obtained in the morning. Patient diuresed well with -2 L of output. Symptomatic improvement in his dyspnea. Echo showing stable heart failure, EF with no significant improvement and no change in cardiac output on dobutamine. Cardiology recommends at this time continuing his dual antiplatelet therapy of aspirin and Plavix. Continue Lipitor 40 mg nightly. Continue atenolol 50 mg daily. Continue Entresto 24/26 mg p.o. twice daily. We will initiate Lasix 40 mg daily and spironolactone 25 mg daily. We will also continue patient's isosorbide dinitrate 30 mg daily. Discontinue amlodipine at this time. We will have close follow-up in a week with cardiology for continued medical management. Patient otherwise stable to discharge home with adjustments to medical regimen. Remained stable on room air during admission. CKD: Baseline 1.3-1.4. Maintained at baseline during admission. Creatinine 1.5 on day of discharge. Patient provided with written order for BMP on day of follow-up with cardiology. BPH: Continue home tamsulosin 0.4 mg daily and finasteride 5 mg daily. Continue home omeprazole 40mg daily for GERD Stable for discharge home. Spent 40 minutes in discharge counseling, consultation with cardiology, chart review, documentation, and direct care with patient. Exam Data for Last 24 hours Vital signs and Labs for Last 24 Hours: Temp Pulse Resp BP Pulse Ox O2 Del Method 97.8 F 92 H 22 153/69 H 92 L Room Air 11/19/22 08:00 11/19/22 10:11/19/22 10:
--- NOTE | 2022-11-20 12:22 | CARE MANAGER ---
Contacted patient related to hospital discharge. Patient is taking his medication and is aware of follow up appointments. Denies questions or concerns at this time. KELI Nieves
== END 2022-11-19 12:44 | disposition home or self-care (01) ==
PROVIDERS: Admitting Provider Internal Medicine Adolescent Medicine; PCP Family Medicine; Visit Provider Internal Medicine Adolescent Medicine
DX: I35.0 Nonrheumatic aortic (valve) stenosis (principal); I65.23 Occlusion and stenosis of bilateral carotid arteries; I50.23 Acute on chronic systolic (congestive) heart failure; I34.0 Nonrheumatic mitral (valve) insufficiency; I25.5 Ischemic cardiomyopathy; J43.8 Other emphysema; E78.2 Mixed hyperlipidemia; I25.10 Atherosclerotic heart disease of native coronary artery without angina pectoris; N18.4 Chronic kidney disease, stage 4 (severe); I13.0 Hypertensive heart and chronic kidney disease with heart failure and stage 1 through stage 4 chronic kidney disease, or unspecified chronic kidney disease; N40.0 Benign prostatic hyperplasia without lower urinary tract symptoms; R01.1 Cardiac murmur, unspecified
CPT/HCPCS: G0379; 80053; 80061; 83735; 83880; 84484; 85025; 93005; 93306; G0378; J1250

== ENCOUNTER → 2022-11-25 10:26 | Outpatient (CLI) | payer MEDICARE, OTHER, SELFPAY ==
[2022-11-25 12:21] LABS: Chloride 107 mmol/L (98-107); Potassium 4.4 mmoL/L (3.5-5.1); Sodium 138 mmol/L (136-145)
[2022-11-25 12:24] LABS: Anion Gap 11.4 mEq/L (5-15); Blood Urea Nitrogen 23 mg/dl (9-20); Calcium 9.1 mg/dl (8.4-10.2); Carbon Dioxide 24 mmol/L (22.0-30.0); Estimated Glomerular Filt Rate 48 ml/min (>60); GFR (African American) 58 ML/MIN (>60); Glucose 125 mg/dl (74-100)
== END ==
PROVIDERS: PCP Family Medicine; Visit Provider Internal Medicine Adolescent Medicine
DX: I50.23 Acute on chronic systolic (congestive) heart failure (principal)
CPT/HCPCS: 36415; 80048

== ENCOUNTER → 2023-01-04 07:38 | Outpatient (CLI) | payer MEDICARE, OTHER, SELFPAY ==
--- NOTE | 2023-01-04 | CA_ITS ---
APPROVED REPORT EXAM: Limited 2D Echocardiogram Deportation Officer: Rosaura Whitten CRT Ht: 5 ft 7 in Wt: 145lbs BSA: 1.76 BP: 94/46 mmHg Indications: Cardiomyopathy Generic I42.8 M-Mode Dimensions RVDd 2.46 cm (0.9-2.6) LVDd 5.89 cm (3.5-5.7) LVDs 5.03 cm (3.5-5.7) IVSd 1.42 cm (0.6-1.1) PWd 0.69 cm (0.6-1.1) EF (Teich) 30.50% FS 14.60% EDV (Teich) 172.50 mL ESV (Teich) 119.90 mL Other Information Study Quality: Fair Conclusion This is a limited TTE to evaluate for LVEF. Limited windows were obtained. The left ventricle appears severely dilated. There is severe global hypokinesis present. There is akinesis of the inferior, septal, inferioroseptal, lateral, and inferolateral LV mcintyre. LVEF is calculated at 20%. Compared to prior study from 11/19/2022, there are overall no significant changes in LV systolic function. Electronically signed by : Christianne Redd MD 01/04/2023 21:01:42
--- OUTSIDE RECORDS SUMMARY | 2023-01-04 07:40 | XMS_ITS | Clinical Summary ---
Author Name Unknown Address [address] [place] [address] Phone Organization [facility] Address [address] [place] [address] Phone Care Team Providers Care Jig Boring Machine Set Up Operator Name Role Phone Unavailable Unavailable Conditions or Problems No information available. Medications No information available. Medications Administered No information available. Allergies, Adverse Reactions, Alerts No information available. Results No information available. Plan of Care No information available. Procedures No information available. Vital Signs No information available. Immunizations No information available. Advance Directives No information available.
== END ==
PROVIDERS: PCP Family Medicine; Visit Provider Physician Assistant
DX: R06.02 Shortness of breath (principal)
CPT/HCPCS: 93308

== ENCOUNTER → 2023-01-12 06:56 | Outpatient (CLI) | payer MEDICARE, OTHER, SELFPAY ==
[2023-01-12 07:08] LABS: Microscopic, Urine URINE MICROSCOPIC (MICROSCOPIC)
[2023-01-12 07:31] LABS: Basophils # 0.1 K/mm3 (0-0.2); Basophils % 0.7 % (0.1-2.0); Eosinophils # 0.4 K/mm3 (0.0-0.4); Eosinophils % 5.9 % (0.1-12.0); Hematocrit 44.2 % (42.0-52.0); Hemoglobin 14.8 g/dL (14.1-18.0); Lymphocytes # 1.5 K/mm3 (0.7-4.5); Lymphocytes % 20.3 % (10-50); Mean Corpuscular HGB Conc 33.6 g/dL (31.8-35.4); Mean Corpuscular Hemoglobin 31.2 pg (27.0-31.2); Mean Corpuscular Volume 92.8 fl (80-94); Mean Platelet Volume 9.4 fl (7.4-10.4); Monocytes # 0.5 K/mm3 (0.1-1.0); Monocytes % 7.1 % (1.7-9.3); Neutrophils # 4.9 K/mm3 (1.8-7.8); Platelet Count 163 K/mm3 (142-424); Red Blood Count 4.76 M/mm3 (4.60-6.20); Red Cell Distribution Width 14.3 % (11.5-17.5); White Blood Count 7.4 K/mm3 (4.8-10.8)
[2023-01-12 08:08] LABS: Appearance,Urine CLEAR (Clear); Bilirubin,Urine Negative (Negative); Blood, Urine Negative (Negative); Color,Urine YELLOW (Yellow); Glucose,Urine (UA) Negative (Negative); Ketones,Urine Negative (Negative); Leukocyte Esterase,Urine 1+ (Negative); Nitrate,Urine Negative (Negative); PH,Urine 6.5 (5.0-8.5); Protein,Urine Negative (Negative)
[2023-01-12 08:17] LABS: Triiodothryronine (T3) Uptake 31 % (23.5-40.5)
[2023-01-12 08:18] LABS: Free Thyroxine Index 2.9 ug/dL (5.93-13.13); T4 (Thyroxine) 9.4 ug/dl (5.53-11.0)
[2023-01-12 08:25] LABS: Creatinine,Urine Random 140 mg/dL (Not Estab.)
[2023-01-12 08:31] LABS: Thyroid Stimulating Hormone 5.29 uIU/mL (0.465-4.68)
[2023-01-12 08:50] LABS: Anion Gap 11.5 mEq/L (5-15); Blood Urea Nitrogen 22 mg/dl (9-20); Calcium 8.9 mg/dl (8.4-10.2); Carbon Dioxide 28 mmol/L (22.0-30.0); Chloride 104 mmol/L (98-107); Estimated Glomerular Filt Rate 52 ml/min (>60); GFR (African American) 63 ML/MIN (>60); Glucose 115 mg/dl (74-100); Phosphorous 3.7 mg/dl (2.5-4.5); Potassium 4.5 mmoL/L (3.5-5.1); Sodium 139 mmol/L (136-145)
[2023-01-12 09:04] LABS: Intact Parathyroid Hormone 248.2 pg/mL (7.5-53.5)
[2023-01-12 09:06] LABS: 25-OH Vitamin D, Total 67.1 ng/mL (30-100)
== END ==
PROVIDERS: Internal Medicine; PCP Family Medicine; Visit Provider Hospitalist
DX: E78.5 Hyperlipidemia, unspecified (principal); I10 Essential (primary) hypertension; I25.10 Atherosclerotic heart disease of native coronary artery without angina pectoris; I34.0 Nonrheumatic mitral (valve) insufficiency; I35.0 Nonrheumatic aortic (valve) stenosis; I51.9 Heart disease, unspecified; I65.29 Occlusion and stenosis of unspecified carotid artery; K21.9 Gastro-esophageal reflux disease without esophagitis; N18.9 Chronic kidney disease, unspecified; I42.8 Other cardiomyopathies; R82.90 Unspecified abnormal findings in urine
CPT/HCPCS: 36415; 80069; 81001; 82306; 82570; 83970; 84155; 84436; 84443; 84479; 85025; 87086

== ENCOUNTER 2023-07-13 11:11 | Outpatient (CLI) | payer MEDICARE, OTHER, SELFPAY ==
[2023-07-13 11:22] LABS: Microscopic, Urine URINE MICROSCOPIC (MICROSCOPIC)
[2023-07-13 12:09] LABS: Appearance,Urine CLEAR (Clear); Bilirubin,Urine Negative (Negative); Blood, Urine Negative (Negative); Color,Urine YELLOW (Yellow); Glucose,Urine (UA) Negative (Negative); Ketones,Urine Negative (Negative); Leukocyte Esterase,Urine 1+ (Negative); Nitrate,Urine Negative (Negative); Protein,Urine Negative (Negative); Urobilinogen,Urine 0.2 EU/dl (0.2)
[2023-07-13 12:32] LABS: Albumin Level 3.5 g/dl (3.5-5.0); Anion Gap 8.3 mEq/L (5-15); Blood Urea Nitrogen 21 mg/dl (9-20); Calcium 8.7 mg/dl (8.4-10.2); Carbon Dioxide 25 mmol/L (22.0-30.0); Chloride 110 mmol/L (98-107); Estimated Glomerular Filt Rate 52 ml/min (>60); GFR (African American) 63 ML/MIN (>60); Glucose 149 mg/dl (74-100); Potassium 4.3 mmoL/L (3.5-5.1); Sodium 139 mmol/L (136-145)
[2023-07-13 12:56] LABS: Intact Parathyroid Hormone 128.8 pg/mL (7.5-53.5)
[2023-07-13 14:35] LABS: Bacteria,Urine Trace /lpf; Mucus,Urine Trace /lpf; Squamous Epithelial Cell,Urine Occasional #/hpf (0-5)
== END 2023-07-13 23:59 | disposition home or self-care (01) ==
LOC: LAB 11:12
PROVIDERS: PCP Family Medicine; Visit Provider Internal Medicine Nephrology
DX: N18.30 Chronic kidney disease, stage 3 unspecified (principal); E21.3 Hyperparathyroidism, unspecified; R82.90 Unspecified abnormal findings in urine
CPT/HCPCS: 36415; 80069; 81001; 83970; 87086

== ENCOUNTER 2023-08-25 11:00 | Outpatient (CLI) | payer MEDICARE, OTHER, SELFPAY ==
--- NOTE | 2023-08-25 11:05 | XR_ITS ---
FINAL REPORT CLINICAL HISTORY: cough soa FINDINGS: TWO-VIEW CHEST There is cardiomegaly. The mediastinum is normal. There is mild bibasilar atelectasis or scar. There is no pneumothorax. IMPRESSION: Mild bibasilar atelectasis or scar. Reviewed, Interpreted and Dictated by Randy Pressley III, MD Transcribed by Jasmine Hilario Authenticated and [facility]
[2023-08-25 11:13] LABS: Coronavirus 19, PCR Not Detected (NotDetected); Influenza A, PCR Not Detected (NotDetected); Influenza B, PCR Not Detected (NotDetected)
== END 2023-08-25 23:59 | disposition home or self-care (01) ==
LOC: LAB 11:02
PROVIDERS: PCP Family Medicine; Visit Provider Physician Assistant
DX: R06.09 Other forms of dyspnea (principal); R05.9 Cough, unspecified
CPT/HCPCS: 71046; 87636

== ENCOUNTER 2023-09-08 08:41 | Outpatient (CLI) | payer MEDICARE, OTHER, SELFPAY ==
--- NOTE | 2023-09-08 08:42 | CA_ITS ---
APPROVED REPORT EXAM: Comprehensive 2D, Doppler, and color-flow Echocardiogram Photo Cartographer: Lucy Chapman, RCS, RVS Ht: 5 ft 7 in Wt: 145lbs BSA: 1.76 BP: 94/46 mmHg Indications: SOA,ABN EKG,MURMUR,,EX SMOKER 2D Dimensions Left Atrium 4.36 cm M: 3.0 - 4.0 LA Volume 107.50 mL LVOT 2.00 cm (M/F) 1.5-2.5 LA Volume Index 60.73 mL/m2 (M/F) 16-34 M-Mode Dimensions RVDd 3.16 cm (0.9-2.6) LA Diam 4.64 cm (1.9-4.0) LVDd 5.76 cm (3.5-5.7) LVDs 5.26 cm (3.5-5.7) IVSd 1.07 cm (0.6-1.1) PWd 1.03 cm (0.6-1.1) EF (Teich) 18.60% EPSs 1.79 cm FS 8.50% EDV (Teich) 163.30 mL TAPSE 2.02 (<1.7) ESV (Teich) 133.00 mL LV Diastology E Decel Time 140 (160-240 msec) E/A Ratio 0.77 MED A' 8.60 cm/s LAT A' 15.80 cm/s Pulm Vein s 24.00 cm/sec Pulm Vein d 20.00 cm/sec Ar-A Duration 133.00 msec Aortic Valve CELINA Index 0.43 cm2/m2 AoV Peak Jamaal. 227.0 (50-130 cm/s) AO Peak GR. 20.70 mmHg AO Mean GR. 11.40 (<5 mmHg) AO VTI 50.0 (18-25 cm) CELINA (VTI) 0.78 (2.5-4.5 cm2) Mitral Valve MV A Velocity 116.0 (40-130 cm/s) E/A Ratio 0.77 MV Mean Gr. 3.80 (<2mmHg) Pulmonary Valve PV Peak Velocity 82.0 (50-150 cm/s) Tricuspid Valve TR P. Velocity 293.00 cm/s RAP Estimate 10.00 mmHg RVSP 44.30 mmHg Left Ventricle Left ventricle is severely dilated. There is severe global hypokinesis present. There is normal left ventricular wall thickness. The septum is asynchronous. Grade 2 diastolic dysfunction is present. LVEF is 15%. Right Ventricle Right ventricle is mildly dilated. Right ventricle is moderately hypokinetic. Atria Left atrium is severely dilated. Right atrium is moderately dilated. There is no Doppler evidence of interatrial shunt. Aortic Valve Aortic valve is moderately thickened. CELINA by continutiy equation is 0.8 cm2. Peak velociry 2.3 m/s. Mean AV gradient 11 mmHg. Max AV gradient 21 mmHg. SVi=25 ml/m2. DI=0.28. Findings are suggestive of low-flow, low-gradient (LFLG) severe aortic stenosis. Mild aortic regurgitation. Mitral Valve Mild mitral annular calcification. The mitral valve leaflets are mildly thickened. No evidence of mitral valve stenosis. Moderate mitral regurgitation. The MR jet is eccentric and posteriorly directed. Tricuspid Valve The tricuspid valve leaflets are thin and pliable. Mild tricuspid regurgitation. RVSP is 25-30 mmHg. Pulmonic Valve The pulmonary valve is normal in structure. Mild pulmonic regurgitation. Great Vessels The aortic root is normal in size. IVC is normal in size and collapses >50% with inspiration. Pericardium There is no pericardial effusion. Other Information Study Quality: Fair Conclusion Severe LV dilation with severe reduction in LV systolic function (LVEF 15%). Grade 2 diastolic dysfunction. Mild RV dilation with moderate reduction in RV function. Biatrial dilation. Moderate AV thickening Possible low-flow low gradient severe (CELINA by continutiy equation is 0.8 cm2. Peak velociry 2.3 m/s. Mean AV gradient 11 mmHg. Max AV gradient 21 mmHg. SVi=25 ml/m2. DI=0.28). Mild AI mild TR, mild PI. Moderate MR. MR jet is eccentric and posteriorly directed. Compared to prior study, the LVEF is now further reduced. The AV parameters appear to have progressed and are now possibly in the severe range. Further evaluation with cardiac MRI (cardiomyopathy + aortic valve protocol) is recommended. Electronically signed by : Christianne Redd MD 09/13/2023 12:00:14
--- NOTE | 2023-09-08 09:23 | FL_ITS ---
FINAL REPORT CLINICAL HISTORY: cp after eating 1.10 min DAP 669.11 FINDINGS: ESOPHAGRAM HISTORY: Chest pain after eating. PROCEDURE: The patient ingested barium. Effervescent crystals were also administered. Spot and overhead films were obtained. Fluoro time: 1 minute 10 seconds DAP: 669.11 uGy.m2 FINDINGS: The esophagus is normal. There is a tiny hiatal hernia. There is no gastroesophageal reflux. Peristalsis is normal. A 13 mm barium tablet passes through the esophagus and into the stomach without delay. IMPRESSION: Tiny sliding-type hiatal hernia. Films reviewed , interpreted and dictated by Dr. Chow. Transcribed by Duran Agarwal PA-C. Reviewed, Interpreted and Dictated by Keith Chow MD Transcribed by ROXANA Vanegas Authenticated and [facility]
[2023-09-08] MEDS: BARIUM SULFATE(LIQUID E-Z-PAQUE);355ML BOTTLE 355 ML PO (09:47)
[2023-09-08] MEDS: BARIUM SULFATE (E-Z-HD 340GM);135ML BOTTLE 135 ML PO (09:47)
[2023-09-08] MEDS: E-Z-GASII EFFERVESCENT GRANULES;1PK 1 EACH PO (09:47)
== END 2023-09-08 23:59 | disposition home or self-care (01) ==
LOC: RT 08:42
PROVIDERS: PCP Family Medicine; Visit Provider Physician Assistant
DX: R07.9 Chest pain, unspecified (principal); I35.0 Nonrheumatic aortic (valve) stenosis; I34.0 Nonrheumatic mitral (valve) insufficiency; K21.9 Gastro-esophageal reflux disease without esophagitis; I65.23 Occlusion and stenosis of bilateral carotid arteries; R01.1 Cardiac murmur, unspecified; I11.9 Hypertensive heart disease without heart failure; I25.10 Atherosclerotic heart disease of native coronary artery without angina pectoris; I12.9 Hypertensive chronic kidney disease with stage 1 through stage 4 chronic kidney disease, or unspecified chronic kidney disease; N18.4 Chronic kidney disease, stage 4 (severe); Z87.891 Personal history of nicotine dependence
CPT/HCPCS: 74220; 93306

== ENCOUNTER 2023-09-15 11:06 | Outpatient (CLI) | payer MEDICARE, OTHER, SELFPAY ==
--- NOTE | 2023-09-15 11:11 | MR_ITS ---
APPROVED REPORT Commander Internal Affairs: CLINICAL INDICATION Aortic stenosis, cardiomyopathy evaluation TECHNIQUE Image Acquisition: Cardiac magnetic resonance (CMR) was performed on Siemens Espree MRI 1.5T scanner. Software platform sequences were performed using the Siemens Health 123 MR B19 platform. A set of three-plane, low-resolution, large [id number] localizers were initially acquired. Then axial, coronal, sagittal TrueFISP, as well as axial HASTE images, were obtained. These were followed by gated TrueFISP breathold cinematic sequences obtained in the short axis with 8 mm slices and 2 mm gaps, 2-chamber (vertical long axis), 3-chamber, 4-chamber (horizontal long axis). A bolus of contrast was injected intravenously with first-pass sequences obtained in the short axis and four-chamber planes. After approximately 10 minutes, a TI roving hand sequence was performed to determine the optimal TI time. Using the optimized TI time, delayed contrast enhancement segmented inversion???recovery TurboFLASH sequences were obtained in the short axis, 2-chamber, 3-chamber, and 4-chamber projections. 2D-velocity phase mapping was performed. Functional parameters were calculated by offline analysis on an independent workstation ([employer] Platform, [employer] Contrast: ProHance??? (Gadoteridol) FINDINGS MORPHOLOGY AND FUNCTION Left ventricle: The left ventricle is severely dilated. The indexed left ventricular end-diastolic volume (LVEDVi) is 180 ml/m2 (reference range 57-105 ml/m2 in males, 56-96 ml/m2 in females). Severe reduction in left ventricular systolic function is present. There is normal left ventricular wall thickness. There is severe global hypokinesis present. The septal, anteroseptal, and inferoseptal LV mcintyre are akinetic. The septum is asynchronous. There are no regional wall motion abnormalities noted. LVEF is calculated at 16.6% (reference range 57-77%). Right ventricle: The right ventricle is severely dilated. The indexed right ventricular end-diastolic volume (RVEDVi) is 116 ml/m2 (reference range 61-121 ml/m2 in males, 48-112 ml/m2 in females). Severe reduction in right ventricular systolic function is present. RVEF is calculated at 27.8% (reference range 52-72% in males, 51-71% in females). Atria: The left atrium is severely dilated. The maximum indexed left atrial volume is 86 ml/m2 (reference range 26-52 ml/m2 in males, 27-53 ml/m2 in females). The right atrium is moderately dilated. The maximum indexed right atrial volume is 63 ml/m2 (reference range 18-50 ml/m2). Aorta: The diameter of the aortic annulus is normal, measuring 23 mm (coronal view reference range 21-30 mm in males, 19-27 mm in females). The diameter of the aortic sinus is normal, measuring 36 mm (coronal view reference range 25-42 mm in males, 24-36 mm in females). The diameter of the sinotubular junction is normal, measuring 29 mm (coronal view reference range 18-32 mm in males, 18-28 mm in females). The diameters of the ascending and descending thoracic aorta are normal. Main pulmonary artery: The main pulmonary artery diameter is normal. Pericardium: The pericardial thickness is normal. The pericardial thickness measures 1.7 mm (normal < 4.0 mm). There is no pericardial effusion. VALVES Moderate aortic stenosis is present. Aortic valve area by planimetry is 1.2 cm???. Mild mitral regurgitation is present. Systolic anterior motion of the mitral valve is not visualized. Ratio of pulmonary to systemic flow, Qp:Qs ratio cannot be calculated due to technical error during phase contrast image acquisition. TISSUE CHARACTERIZATION Resting Perfusion: Resting hypoperfusion is present in the septal and anteroseptal LV mcintyre. Myocardial Fibrosis and/or edema: Abnormal gadolinium kinetics are present. Mid-myocardial late gadolinium enhancement (LGE) is noted in the septal and inferior septal LV mcintyre. OTHER There is diffuse groundglass opacities noted bilaterally, most likely suggestive of pulmonary edema. Bilateral pleural effusions are present. IMPRESSION Severely dilated LV with severe reduction in LV systolic function. LVEDVi= 180 ml/m2 and LVEF= 16.6%. Severe global hypokinesis present. The septal, anteroseptal, and inferoseptal LV mcintyre are akinetic. Severely dilated RV with severe reduction in RV systolic function. RVEDVi= 116 ml/m2 and RVEF= 27.8%. Biatrial dilation. Moderate aortic stenosis. Aortic valve area by planimetry is 1.2 cm???. Mild mitral regurgitation. Mid-myocardial late gadolinium enhancement (LGE) is noted in the septal and inferior septal LV mcintyre. Perfusion analysis demonstrates normal blood flow at rest with no evidence of resting hypoperfusion. Diffuse groundglass opacities noted bilaterally, most likely suggestive of pulmonary edema Bilateral pleural effusions are present. 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 Moderate aortic stenosis is present. Serial follow-up and correlation with TTE is recommended. COMPARISON None CRITICAL RESULT None COMMUNICATION The above findings were communicated with the patient on the same day of acquisition of this CMR. The findings of this cardiac MR were reviewed, reported, and signed by James Redd MD (Residential Real Estate Agent). Conclusion Electronically signed by : Christianne Redd MD 10/05/2023 00:44:40
[2023-09-15 11:40] LABS: Basophils # 0.1 K/mm3 (0-0.2); Basophils % 0.9 % (0.1-2.0); Eosinophils # 0.4 K/mm3 (0.0-0.4); Eosinophils % 4.4 % (0.1-12.0); Hemoglobin 12.9 g/dL (14.1-18.0); Lymphocytes # 0.7 K/mm3 (0.7-4.5); Lymphocytes % 7.9 % (10-50); Mean Corpuscular HGB Conc 31.5 g/dL (31.8-35.4); Mean Corpuscular Hemoglobin 30.5 pg (27.0-31.2); Mean Corpuscular Volume 96.9 fl (80-94); Mean Platelet Volume 9.9 fl (7.4-10.4); Monocytes # 0.6 K/mm3 (0.1-1.0); Monocytes % 7.5 % (1.7-9.3); Neutrophils # 6.8 K/mm3 (1.8-7.8); Neutrophils % 79.2 % (37.0-80.0); Platelet Count 259 K/mm3 (142-424); Red Blood Count 4.23 M/mm3 (4.60-6.20); Red Cell Distribution Width 14.6 % (11.5-17.5); White Blood Count 8.6 K/mm3 (4.8-10.8)
[2023-09-15 12:02] LABS: Chloride 112 mmol/L (98-107); Potassium 4.2 mmoL/L (3.5-5.1); Sodium 141 mmol/L (136-145)
[2023-09-15 12:04] LABS: Alanine Aminotransferase 20 U/L (12-78); Blood Urea Nitrogen 23 mg/dl (9-20); Estimated Glomerular Filt Rate 41 ml/min (>60); GFR (African American) 50 ML/MIN (>60)
[2023-09-15 12:05] LABS: Albumin Level 3.6 g/dl (3.5-5.0); Albumin/Globulin Ratio 1.2 (1.1-1.8); Alkaline Phosphatase 95 U/L (38-126); Anion Gap 11.2 mEq/L (5-15); Aspartate Amino Transferase 20 U/L (17-59); Bilirubin,Total 0.8 mg/dl (0.2-1.3); Carbon Dioxide 22 mmol/L (22.0-30.0); Glucose 144 mg/dl (74-100); Total Protein,Serum 6.6 g/dl (6.3-8.2)
[2023-09-15 12:20] LABS: Free Thyroxine Index 3.7 ug/dL (5.93-13.13); T4 (Thyroxine) 9.8 ug/dl (5.53-11.0); Triiodothryronine (T3) Uptake 38 % (23.5-40.5)
[2023-09-15 12:34] LABS: Thyroid Stimulating Hormone 3.17 uIU/mL (0.465-4.68)
[2023-09-15 12:43] LABS: NT Pro Brain Natriuretic Pep. 35900 pg/mL (0-450)
[2023-09-15] MEDS: SODIUM CHLORIDE 0.9% 10ML SYR (RAD ONLY) 10 ML IV (13:40)
[2023-09-15] MEDS: GADOTERIDOL INJ 20ML SYRINGE 16 ML IV (13:40)
[2023-09-15] MEDS: 0.9 % SODIUM CHLORIDE 50 ML VIAL IV (13:40)
== END 2023-09-15 23:59 | disposition home or self-care (01) ==
PROVIDERS: PCP Family Medicine; Visit Provider Physician Assistant
DX: I35.0 Nonrheumatic aortic (valve) stenosis (principal); I34.0 Nonrheumatic mitral (valve) insufficiency; I25.5 Ischemic cardiomyopathy; I65.23 Occlusion and stenosis of bilateral carotid arteries; I11.0 Hypertensive heart disease with heart failure; I25.10 Atherosclerotic heart disease of native coronary artery without angina pectoris; I50.23 Acute on chronic systolic (congestive) heart failure; R01.1 Cardiac murmur, unspecified; R05.2 Subacute cough; K21.9 Gastro-esophageal reflux disease without esophagitis; E78.2 Mixed hyperlipidemia; I12.9 Hypertensive chronic kidney disease with stage 1 through stage 4 chronic kidney disease, or unspecified chronic kidney disease; N18.4 Chronic kidney disease, stage 4 (severe); E03.9 Hypothyroidism, unspecified; Z87.891 Personal history of nicotine dependence
CPT/HCPCS: 36415; 75561; 80053; 83880; 84436; 84443; 84479; 85025; A9576

== ENCOUNTER 2023-10-04 10:24 | Outpatient (CLI) | payer MEDICARE, OTHER, SELFPAY ==
[2023-10-04 11:55] LABS: Prostate Specific Ag Screen 6.2 ng/ml (0.0-4.0)
== END 2023-10-04 23:59 | disposition home or self-care (01) ==
LOC: LAB 10:26
PROVIDERS: PCP Family Medicine; Visit Provider Urology
DX: Z12.5 Encounter for screening for malignant neoplasm of prostate (principal)
CPT/HCPCS: 36415; G0103

== ENCOUNTER 2024-01-10 13:06 | Outpatient (CLI) | payer MEDICARE, OTHER, SELFPAY ==
[2024-01-10 13:14] LABS: Microscopic, Urine URINE MICROSCOPIC (MICROSCOPIC)
[2024-01-10 14:16] LABS: Albumin Level 3.9 g/dl (3.5-5.0); Anion Gap 20.2 mEq/L (5-15); Appearance,Urine CLEAR (Clear); Bilirubin,Urine Negative (Negative); Blood Urea Nitrogen 35 mg/dl (9-20); Blood, Urine Negative (Negative); Calcium 8.9 mg/dl (8.4-10.2); Carbon Dioxide 24 mmol/L (22.0-30.0); Chloride 103 mmol/L (98-107); Color,Urine YELLOW (Yellow); Estimated Glomerular Filt Rate 38 ml/min (>60); GFR (African American) 46 ML/MIN (>60); Glucose 105 mg/dl (74-100); Glucose,Urine (UA) Negative (Negative); Ketones,Urine Negative (Negative); Leukocyte Esterase,Urine 2+ (Negative); Nitrate,Urine Negative (Negative); Phosphorous 3.8 mg/dl (2.5-4.5); Potassium 4.2 mmoL/L (3.5-5.1); Protein,Urine Negative (Negative); Sodium 143 mmol/L (136-145); Urobilinogen,Urine 0.2 EU/dl (0.2)
[2024-01-10 14:28] LABS: Intact Parathyroid Hormone 236.1 pg/mL (7.5-53.5)
[2024-01-10 14:49] LABS: Creatinine,Urine Random 27 mg/dL (Not Estab.)
[2024-01-10 14:53] LABS: Bacteria,Urine Trace /lpf; Hyaline Casts,Urine OCC #/lpf (0); Squamous Epithelial Cell,Urine Occasional #/hpf (0-5)
== END 2024-01-10 23:59 | disposition home or self-care (01) ==
LOC: LAB 13:07
PROVIDERS: PCP Family Medicine; Visit Provider Internal Medicine Nephrology
DX: N18.30 Chronic kidney disease, stage 3 unspecified (principal); R53.83 Other fatigue
CPT/HCPCS: 36415; 80069; 81001; 82570; 83970; 84156; 87086

== ENCOUNTER 2024-02-07 10:51 | Outpatient (CLI) | payer MEDICARE, OTHER, SELFPAY ==
--- NOTE | 2024-02-07 10:57 | XR_ITS ---
FINAL REPORT CLINICAL HISTORY: Shortness of breath COMPARISON: 08/25/2023 FINDINGS: Two views of the chest were obtained. The heart size is enlarged. The pulmonary vascularity is within normal limits. The mediastinum is normal. The lungs are hyperinflated, consistent with COPD. Mild scarring is noted. No acute pulmonary abnormality is identified. There is no pneumothorax. The bony thorax is intact. IMPRESSION: No active cardiopulmonary disease. Reviewed, Interpreted and Dictated by Randy Pressley III, MD Transcribed by Vannessa Pat Authenticated and [facility]
== END 2024-02-07 23:59 | disposition home or self-care (01) ==
LOC: RAD 10:54
PROVIDERS: PCP Family Medicine; Visit Provider Physician Assistant
DX: R06.09 Other forms of dyspnea (principal); I95.9 Hypotension, unspecified; I34.0 Nonrheumatic mitral (valve) insufficiency; I50.23 Acute on chronic systolic (congestive) heart failure; K21.9 Gastro-esophageal reflux disease without esophagitis; I65.23 Occlusion and stenosis of bilateral carotid arteries; I35.0 Nonrheumatic aortic (valve) stenosis; E78.2 Mixed hyperlipidemia; N18.4 Chronic kidney disease, stage 4 (severe); I25.5 Ischemic cardiomyopathy; R05.2 Subacute cough
CPT/HCPCS: 71046

== ENCOUNTER 2024-02-21 12:53 | Outpatient (CLI) | payer MEDICARE, OTHER, SELFPAY ==
[2024-02-21 13:01] LABS: Microscopic, Urine URINE MICROSCOPIC (MICROSCOPIC)
[2024-02-21 13:40] LABS: Appearance,Urine CLEAR (Clear); Bilirubin,Urine Negative (Negative); Blood, Urine Negative (Negative); Color,Urine YELLOW (Yellow); Glucose,Urine (UA) Negative (Negative); Ketones,Urine Negative (Negative); Leukocyte Esterase,Urine TRACE (Negative); Nitrate,Urine Negative (Negative); Protein,Urine Negative (Negative); Specific Gravity, Urine 1.015 (1.005-1.030); Urobilinogen,Urine 0.2 EU/dl (0.2)
[2024-02-21 13:43] LABS: Creatinine,Urine Random 34 mg/dL (Not Estab.)
[2024-02-21 14:12] LABS: Bacteria,Urine Trace /lpf; Squamous Epithelial Cell,Urine Occasional #/hpf (0-5); WBC,Urine Occasional #/hpf (0-3)
[2024-02-21 14:53] LABS: Chloride 109 mmol/L (98-107); Sodium 143 mmol/L (136-145)
[2024-02-21 14:54] LABS: Albumin Level 3.6 g/dl (3.5-5.0); Potassium 3.9 mmoL/L (3.5-5.1)
[2024-02-21 14:56] LABS: Anion Gap 10.9 mEq/L (5-15); Blood Urea Nitrogen 26 mg/dl (9-20); Carbon Dioxide 27 mmol/L (22.0-30.0); Estimated Glomerular Filt Rate 36 ml/min (>60); GFR (African American) 43 ML/MIN (>60)
[2024-02-21 14:57] LABS: Calcium 9.1 mg/dl (8.4-10.2); Glucose 97 mg/dl (74-100); Phosphorous 3.1 mg/dl (2.5-4.5)
[2024-02-24 10:10] LABS: PSA, Free 0.62 ng/mL; Prostate Specific Ag 6.9 ng/mL (0.0-4.0)
== END 2024-02-21 23:59 | disposition home or self-care (01) ==
LOC: LAB 12:55
PROVIDERS: Urology; PCP Family Medicine; Visit Provider Internal Medicine Nephrology
DX: R97.20 Elevated prostate specific antigen [PSA] (principal); N18.30 Chronic kidney disease, stage 3 unspecified
CPT/HCPCS: 36415; 80069; 81001; 82570; 84153; 84154; 84156

== ENCOUNTER 2024-02-23 09:08 | Day surgery (SDC) | payer MEDICARE, OTHER, SELFPAY ==
--- NOTE | 2024-02-23 08:30 | IR_ITS ---
APPROVED REPORT Patient Location: Outpatient Farm Equipment Service Technician: KASEY Cruz RT (R) PROCEDURES 1. Pocket formation for biventricular pacemaker generator with cardiac resynchronization/defibrillator therapy. 2. Placement of atrial sensing and pacing lead into the right atrial appendage. 3. Placement of a right ventricular sensing, pacing and shocking lead in the right ventricular apex. 4. Placement of left ventricular sensing pacing lead via the coronary sinus. 5. Permanent cardiac resynchronization therapy with ICD implantation/biventricular pacemaker. 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 COMPLICATIONS NONE Estimated Blood Loss: LESS THAN 10 ML TECHNIQUE 1% Lidocaine with epinephrine used to anesthetized the left anterior aspect of the chest. Scalpel was used to make the initial cutaneous incision while electrocautery was used to dissect down tinto the fascia. The fascia was lifted off the pectoralis muscle and digitally manipulated creating a pocket for the defibrillator. The patient was then placed in Trendelenburg position and the subclavian vein was accessed 3 times via the Selinger technique. A 8 [place]serratian sheath was placed under fluoroscopic guidance into the subclavian vein. The dilator was removed from the sheath. Using fluoroscopic guidance, the ventricular lead was placed into the right ventricular apex, screwed and secured into place. Electronic interrogation proved acceptable thresholds and voltage within the lead. Using 3-0 silk, the ventricular lead was then secured into place and sheath peeled away. Following this, a 9.5 [place]serratian sheath and dilator was then placed over one of the wires while keeping the other wire in place within the subclavian vein. The dilator was removed from the sheath. Using fluoroscopic guidance, contrast was used to visualize the coronary sinus, the left ventricular lead was placed into the coronary sinus. Electronic interrogation proved acceptable thresholds and voltage within the lead. Using 3-0 silk, the left ventricular lead was then secured into place and sheath peeled away.An additional 6 [place]serratian fresh sheath and dilator was placed over the existing wire. Using fluoroscopic guidance, the atrial lead was then placed into the right atrial appendage and screwed and secured in place. Electrical interrogation demonstrated acceptable thresholds and voltage number. The atrial lead was then secured into place using 3-0 silk and sheath peeled away. 1 gram of Ancef was used to flush the pocket. All 3 leads were connected to generator and tested via computer. The defibrillator then secured to the fascia. Monocryl was used to close the subcutaneous layers while say were used to close the cutaneous layer. A pressure dressing was placed and the patient was transferred to the postop holding area in stable condition for postoperative care. INTERROGATION Generator Model number: [employer] HF [id number] Generator Serial number: [id number] Atrial lead model number: Tendril STS [id number] Atrial lead serial number: [id number] P-wave: 2.1 mV Impedance: 400 Ohms Threshold: 1.0V @ 0.5ms Right Ventricular lead model number: Optisure [id number] Right Ventricular lead serial number: [id number] R-wave: 10.7 mV Impedance: 660 Ohms Threshold: 0.75V @ 0.5ms High Voltage Imedance: 39 Ohms Left Ventricular lead model number: Quartet [id number] Left Ventricular lead serial number: [id number] R-wave: Impedance: 1175 Ohms Threshold: 1.0V @ 0.5ms Pacing Parameters: Mode: DDDR Base/Max Track:60 ppm / 120 ppm No diaphragmatic stimulation at 10 volts. IMPRESSION 1. Successful Pocket formation for biventricular pacemaker generator with cardiac resynchronization/defibrillator therapy. 2. Successful placement of right atrial sensing and pacing lead into the right atrial appendage. 3. Successful placement of a right ventricular sensing, pacing and shocking lead in the right ventricular apex. 4. Successful placement of left ventricular sensing pacing lead via the coronary sinus. 5. Successful permanent cardiac resynchronization plus AICD generator device. PLAN 1. Postop wound care. Electronically signed by : Abel Grigsby MD 02/24/2024 15:10:22
[2024-02-23 09:19] VITALS: BMI 23.8
[2024-02-23 09:40] VITALS: BP 134/76; PULSE 95; RESP 18; O2SAT 97
[2024-02-23 09:58] LABS: Chloride 109 mmol/L (98-107); Potassium 4.4 mmoL/L (3.5-5.1); Sodium 140 mmol/L (136-145)
[2024-02-23 09:59] LABS: Basophils # 0.1 K/mm3 (0-0.2); Basophils % 0.7 % (0.1-2.0); Eosinophils # 0.2 K/mm3 (0.0-0.4); Eosinophils % 1.6 % (0.1-12.0); Lymphocytes # 0.9 K/mm3 (0.7-4.5); Lymphocytes % 9.5 % (10-50); Mean Corpuscular HGB Conc 31.8 g/dL (31.8-35.4); Mean Corpuscular Hemoglobin 29.9 pg (27.0-31.2); Mean Corpuscular Volume 94.1 fl (80-94); Mean Platelet Volume 9.9 fl (7.4-10.4); Monocytes # 0.6 K/mm3 (0.1-1.0); Monocytes % 5.9 % (1.7-9.3); Neutrophils # 8.1 K/mm3 (1.8-7.8); Neutrophils % 82.2 % (37.0-80.0); Platelet Count 170 K/mm3 (142-424); Red Cell Distribution Width 13.4 % (11.5-17.5); White Blood Count 9.9 K/mm3 (4.8-10.8)
[2024-02-23 10:01] LABS: Anion Gap 10.4 mEq/L (5-15); Blood Urea Nitrogen 30 mg/dl (9-20); Calcium 9.6 mg/dl (8.4-10.2); Carbon Dioxide 25 mmol/L (22.0-30.0); Creatinine Clearance Estimated 23 mL/min (50-200); Estimated Glomerular Filt Rate 28 ml/min (>60); GFR (African American) 34 ML/MIN (>60); Glucose 148 mg/dl (74-100)
[2024-02-23] MEDS: 0.9 % SODIUM CHLORIDE 1000ML 1,000 ML 25 ML IV (13:43)
[2024-02-23] MEDS: LIDOCAINE 1% W/EPI 1:100,000 20ML VIAL 20 ML SQ (13:43)
[2024-02-23] MEDS: CEFAZOLIN 1GM VIAL 1 GM TP (13:43)
[2024-02-23] MEDS: CEFAZOLIN SODIUM 1 GM in 0.9 % SODIUM CHLORIDE 50 ML IV (13:43)
[2024-02-23] MEDS: diphenhydrAMINE 50MG/ML VIAL 50 MG IV (13:44)
--- NOTE | 2024-02-23 14:35 | XR_ITS ---
FINAL REPORT CLINICAL HISTORY: post AICD placement COMPARISON: 02/07/2024 FINDINGS: A single portable view of the chest was obtained. A left subclavian ICD is noted. The heart is enlarged. There is mild pulmonary vascular congestion. The mediastinum is within normal limits. There are worsening bibasilar pulmonary opacities consistent with worsening atelectasis or pneumonia. The bony thorax is intact. IMPRESSION: Left subclavian ICD in place. Cardiomegaly with mild pulmonary vascular congestion. Worsening bibasilar atelectasis or pneumonia. Reviewed, Interpreted and Dictated by Randy Pressley III, MD Transcribed by April Poole Authenticated and [facility]
[2024-02-23 14:37] VITALS: BP 125/70; PULSE 95; RESP 20; O2SAT 95
[2024-02-23 14:45] VITALS: BP 117/66; PULSE 92; RESP 18; O2SAT 93
[2024-02-23 15:00] VITALS: BP 133/93; PULSE 84; RESP 18; O2SAT 95
--- NOTE | 2024-02-23 15:00 | EXP.ANES.CKL ---
[facility] Disclaimer: The information contained in this section may have been updated after the patient was seen, as this information can be updated by other users. Medical History Dyspnea Aortic stenosis History of smoking 30 or more pack years History of 2019 novel coronavirus disease (COVID-19) Pulmonary emphysema Dyspnea on exertion Systolic heart failure Mitral regurgitation Hard of hearing LV dysfunction Cardiomyopathy Atypical angina Angina, class III COVID-19 with pulmonary comorbidity Aortic stenosis Tobacco user Angina, class IV Former smoker Chronic kidney disease Abnormal EKG HTN (hypertension) SOB (shortness of breath) Coronary artery calcification seen on computed tomography Murmur, heart Surgical History H/O heart artery stent History of cardiac cath Family History Other Heart disease Kidney disease Social History (Updated 02/23/24 @ 09:47 by Princess Schaefer RN) Smoking Status: Former smoker tobacco type: cigarettes packs per day: 1 alcohol intake: never substance use type: denies use 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 Travel in the last 8 weeks: None household members: spouse [facility] Anesthesia Checklist Patient Identification Patient Identification: Arm Band and Family Structural Data Admitted From: Home Planned Operative Procedure/s: Pacemaker placement Consent for Planned Operative Procedure(s) Verified: Yes Verified Documents: Surgical Consent and History and Physical NPO Status Verified Time NPO: 00:00 Additional verifications Patient : No Anesthesia Reactions: No Hx Blood Transfusions: No Blood Transfusion Reaction: No Cephalosporin Allergy: No Airway Assessment Mallampati Score:: Class II C-Spine Mobility Assessed: Yes Dentition: Poor Dentition Neurological Assessment Level of Consciousness: Awake, Alert, Appropriate and Follows Commands Hx Seizures: No Numbness or tingling in extremities: No Anesthesia Plan Anesthesia Risk discussed: Yes ASA Class: III Anesthesia Type: MAC Preoperative Comments Pre-Operative Comments: LV Dysfunction. COPD. Hypothyroidism. Aortic stenosis.
[2024-02-23] MEDS: IOPAMIDOL-370 (76%);100ML BOTTLE IV (15:01)
[2024-02-23 15:50] VITALS: BP 125/81; PULSE 89; RESP 20; O2SAT 93
--- NOTE | 2024-02-23 16:24 | SUR.PHASEII ---
DR GEORGE NOTIFIED OF CHEST XRAY RESULTS, NEW SCRIPT ORDERS GIVEN FOR AUGMENTIN, CALLED TO [facility]. --ADRIANA DICKEY
== END 2024-02-23 16:27 | disposition home or self-care (01) ==
PROVIDERS: PCP Family Medicine; Visit Provider Internal Medicine
PROC: 0JH609Z Insertion of Cardiac Resynchronization Defibrillator Pulse Generator into Chest Subcutaneous Tissue and Fascia, Open Approach (ICD-10-PCS; CPT 33249; principal; 2024-02-23 08:00)
DX: I12.9 Hypertensive chronic kidney disease with stage 1 through stage 4 chronic kidney disease, or unspecified chronic kidney disease (principal); I50.23 Acute on chronic systolic (congestive) heart failure; I25.118 Atherosclerotic heart disease of native coronary artery with other forms of angina pectoris; I25.5 Ischemic cardiomyopathy; I34.0 Nonrheumatic mitral (valve) insufficiency; I35.0 Nonrheumatic aortic (valve) stenosis; Z79.899 Other long term (current) drug therapy; N18.9 Chronic kidney disease, unspecified; Z87.891 Personal history of nicotine dependence; I65.23 Occlusion and stenosis of bilateral carotid arteries
CPT/HCPCS: 33225; 33249; 71045; 80048; 85025; 99152; 99153; C1769; C1882; C1895; C1898; C1900; J1200; J2704; J3010; J7030; Q9967

== ENCOUNTER 2024-03-01 14:47 | Outpatient (CLI) | payer MEDICARE, OTHER, SELFPAY ==
--- NOTE | 2024-03-01 14:59 | XR_ITS ---
FINAL REPORT CLINICAL HISTORY: pneumonia, shortness of breath COMPARISON: 02/23/2024 FINDINGS: There has been resolution of the bilateral pulmonary opacities. No acute pulmonary density is evident. Emphysema is noted. There is mild scarring in the lung bases. There is no evidence of effusion. The mediastinum has a normal appearance. The cardiac silhouette is unremarkable. IMPRESSION: No acute findings. Reviewed, Interpreted and Dictated by Keith Chow MD Transcribed by Vannessa Pat Authenticated and [facility]
[2024-03-01 15:25] LABS: Red Blood Count 4.81 M/mm3 (4.60-6.20); White Blood Count 9.8 K/mm3 (4.8-10.8)
[2024-03-01 15:26] LABS: Alanine Aminotransferase 20 U/L (12-78); Albumin Level 3.6 g/dl (3.5-5.0); Alkaline Phosphatase 86 U/L (38-126); Anion Gap 11.1 mEq/L (5-15); Aspartate Amino Transferase 29 U/L (17-59); Bilirubin,Direct 0.3 mg/dl (0.0-0.4); Bilirubin,Indirect 0.5 mg/dL (0.0-0.9); Bilirubin,Total 0.8 mg/dl (0.2-1.3); Bilirubin,Unconjugated 0.5 mg/dL (0.0-1.1); Blood Urea Nitrogen 26 mg/dl (9-20); Calcium 9.1 mg/dl (8.4-10.2); Carbon Dioxide 27 mmol/L (22.0-30.0); Chloride 107 mmol/L (98-107); Chol/HDL Ratio 3.3 (1-3.5); Cholesterol 79 mg/dl (140-200); Eosinophils % 1.7 % (0.1-12.0); Estimated Glomerular Filt Rate 36 ml/min (>60); GFR (African American) 43 ML/MIN (>60); Glucose 123 mg/dl (74-100); HDL Cholesterol 24 mg/dl (40-60); Hematocrit 45.2 % (42.0-52.0); Hemoglobin 14.2 g/dL (14.1-18.0); Lymphocytes % 8.8 % (10-50); Mean Corpuscular HGB Conc 31.4 g/dL (31.8-35.4); Mean Corpuscular Hemoglobin 29.5 pg (27.0-31.2); Mean Platelet Volume 11.7 fl (7.4-10.4); Neutrophils % 79.3 % (37.0-80.0); Platelet Count 176 K/mm3 (142-424); Potassium 4.1 mmoL/L (3.5-5.1); Red Cell Distribution Width 13.1 % (11.5-17.5); Sodium 141 mmol/L (136-145); Total Protein,Serum 6.1 g/dl (6.3-8.2); Triglycerides 91 mg/dl (30-150); VLDL Cholesterol 18 mg/dL (0-40)
[2024-03-01 15:27] LABS: Basophils # 0.1 K/mm3 (0-0.2); Basophils % 0.9 % (0.1-2.0); Eosinophils # 0.2 K/mm3 (0.0-0.4); Lymphocytes # 0.9 K/mm3 (0.7-4.5); Monocytes # 0.9 K/mm3 (0.1-1.0); Neutrophils # 7.8 K/mm3 (1.8-7.8)
[2024-03-01 15:35] LABS: NT Pro Brain Natriuretic Pep. > 30000 pg/mL (0-450)
[2024-03-01 15:37] LABS: Direct LDL Cholesterol 42.62 mg/dL (100-129)
[2024-03-01 15:41] LABS: Free T4 (Free Thyroxine) 1.42 ng/dl (0.78-2.19)
== END 2024-03-01 23:59 | disposition home or self-care (01) ==
LOC: LAB 14:50
PROVIDERS: PCP Family Medicine; Visit Provider Physician Assistant
DX: R06.09 Other forms of dyspnea (principal); J18.9 Pneumonia, unspecified organism; I35.0 Nonrheumatic aortic (valve) stenosis; I34.0 Nonrheumatic mitral (valve) insufficiency; I50.23 Acute on chronic systolic (congestive) heart failure; K21.9 Gastro-esophageal reflux disease without esophagitis; I25.10 Atherosclerotic heart disease of native coronary artery without angina pectoris; E78.2 Mixed hyperlipidemia; N18.4 Chronic kidney disease, stage 4 (severe)
CPT/HCPCS: 36415; 71046; 80048; 80061; 80076; 83735; 83880; 84439; 84443; 85025

== ENCOUNTER 2024-04-11 11:13 | Outpatient (CLI) | payer MEDICARE, OTHER, SELFPAY ==
[2024-04-11 11:22] LABS: Microscopic, Urine URINE MICROSCOPIC (MICROSCOPIC)
[2024-04-11 11:43] LABS: Appearance,Urine CLEAR (Clear); Basophils # 0.1 K/mm3 (0-0.2); Basophils % 1.1 % (0.1-2.0); Bilirubin,Urine Negative (Negative); Blood, Urine Negative (Negative); Color,Urine YELLOW (Yellow); Eosinophils # 0.5 K/mm3 (0.0-0.4); Eosinophils % 5.4 % (0.1-12.0); Glucose,Urine (UA) Negative (Negative); Hematocrit 50.1 % (42.0-52.0); Hemoglobin 15.6 g/dL (14.1-18.0); Ketones,Urine Negative (Negative); Leukocyte Esterase,Urine TRACE (Negative); Lymphocytes # 1.1 K/mm3 (0.7-4.5); Lymphocytes % 11.9 % (10-50); Mean Corpuscular HGB Conc 31.1 g/dL (31.8-35.4); Mean Corpuscular Hemoglobin 28.6 pg (27.0-31.2); Mean Corpuscular Volume 91.8 fl (80-94); Mean Platelet Volume 11.6 fl (7.4-10.4); Monocytes # 0.8 K/mm3 (0.1-1.0); Monocytes % 8.5 % (1.7-9.3); Neutrophils # 6.7 K/mm3 (1.8-7.8); Neutrophils % 72.8 % (37.0-80.0); Nitrate,Urine Negative (Negative); Platelet Count 195 K/mm3 (142-424); Protein,Urine Negative (Negative); Red Blood Count 5.46 M/mm3 (4.60-6.20); Red Cell Distribution Width 13.4 % (11.5-17.5); Specific Gravity, Urine 1.015 (1.005-1.030); Urobilinogen,Urine 0.2 EU/dl (0.2); White Blood Count 9.2 K/mm3 (4.8-10.8)
[2024-04-11 11:55] LABS: Bacteria,Urine Trace /lpf; Hyaline Casts,Urine OCC #/lpf (0); RBC,Urine Occasional #/hpf (0-3); Squamous Epithelial Cell,Urine Occasional #/hpf (0-5)
[2024-04-11 12:13] LABS: Albumin Level 4.6 g/dl (3.5-5.0); Anion Gap 18.3 mEq/L (5-15); Blood Urea Nitrogen 28 mg/dl (9-20); Calcium 9.7 mg/dl (8.4-10.2); Carbon Dioxide 25 mmol/L (22.0-30.0); Chloride 102 mmol/L (98-107); Estimated Glomerular Filt Rate 41 ml/min (>60); GFR (African American) 50 ML/MIN (>60); Glucose 157 mg/dl (74-100); Phosphorous 3.8 mg/dl (2.5-4.5); Potassium 4.3 mmoL/L (3.5-5.1); Sodium 141 mmol/L (136-145)
[2024-04-11 12:22] LABS: Intact Parathyroid Hormone 163.4 pg/mL (7.5-53.5)
[2024-04-11 12:29] LABS: 25-OH Vitamin D, Total 80.2 ng/mL (30-100)
== END 2024-04-11 23:59 | disposition home or self-care (01) ==
LOC: LAB 11:14
PROVIDERS: PCP Family Medicine; Visit Provider Internal Medicine Nephrology
DX: E21.3 Hyperparathyroidism, unspecified (principal); N18.32 Chronic kidney disease, stage 3b
CPT/HCPCS: 36415; 80069; 81001; 82306; 83970; 85025

== ENCOUNTER 2024-04-13 12:26 | Outpatient (CLI) | payer MEDICARE, OTHER, SELFPAY ==
--- NOTE | 2024-04-13 12:31 | CA_ITS ---
APPROVED REPORT EXAM: Comprehensive 2D, Doppler, and color-flow Echocardiogram Link And Link Knitting Machine Operator: Iesha Webb RT(R) Ht: 5 ft 8 in Wt: 155lbs BSA: 1.83 BP: 120/65 mmHg Indications: HFrEF, murmur, smoker, HTN, SOB, pacemaker/AICD, CM, severe , EF 15% echo 09/08/23 2D Dimensions LVEF (Jeffrey's) 12.50 % M: 52 - 72 LV Volume 235.00 mL M: 62 - 150 LV Volume Index 127.7 mL/m2 M: 34 - 74 LA Volume 82.50 mL LA Volume Index 44.84 mL/m2 (M/F) 16-34 EF AP4 13.50 % EF AP2 15.5 % EF BP 12.5 % GL Strain -5.2 % M-Mode Dimensions RVDd 3.31 cm (0.9-2.6) LA Diam 4.19 cm (1.9-4.0) LVDd 6.57 cm (3.5-5.7) LVDs 6.16 cm (3.5-5.7) IVSd 0.80 cm (0.6-1.1) PWd 0.80 cm (0.6-1.1) EF (Teich) 13.60% FS 6.20% EDV (Teich) 221.30 mL ESV (Teich) 191.10 mL LV Diastology E Decel Time 173 (160-240 msec) E/A Ratio 1.1 Aortic Valve CELINA Index 0.41 cm2/m2 AoV Peak Jamaal. 240.0 (50-130 cm/s) AO Peak GR. 23.10 mmHg AO Mean GR. 11.30 (<5 mmHg) AO VTI 49.7 (18-25 cm) CELINA (VTI) 0.78 (2.5-4.5 cm2) Mitral Valve MV E Max Jamaal. 109.0 (40-130 cm/s) MV A Velocity 96.0 (40-130 cm/s) E/A Ratio 1.13 MV PHT 51.0 ms Tricuspid Valve TR P. Velocity 308.00 cm/s RAP Estimate 10.00 mmHg RVSP 47.80 mmHg Left Ventricle Left ventricle is severely dilated. The left ventricular systolic function is severely reduced. There is normal left ventricular wall thickness. The septum is asynchronous. Grade 2 diastolic dysfunction. LVEF is 15%. Right Ventricle Right ventricle is mildly to moderately dilated. Right ventricle is moderately hypokinetic. A device lead is present in the right ventricle. Atria Left atrium is mode severely dilated. Right atrium is moderately dilated. There is no Doppler evidence of interatrial shunt. Aortic Valve Aortic valve is moderately thickened. Severe low-flow low gradient aortic stenosis is present. CELINA by continuity equation is 0.8 cm2. Peak velocity 2.2 m/s. Mean AV gradient 10 mmHg. Max AV gradient 20 mmHg. SVi 25 ml/m2. Trace aortic regurgitation. Mitral Valve The mitral valve leaflets are mildly thickened. The posterior mitral valve leaflet is restricted in motion. No evidence of mitral valve stenosis. Severe mitral regurgitation is present. The mechanism of MR is likely functional due to tethering of the posterior mitral valve leaflet (Justin class IIIB). Tricuspid Valve The tricuspid valve leaflets are thin and pliable. Mild tricuspid regurgitation. RVSP is 25 mmHg. Pulmonic Valve The pulmonary valve is normal in structure. Trace pulmonic regurgitation. Great Vessels The aortic root is normal in size. The ascending aorta is not well visualized. IVC is normal in size and collapses >50% with inspiration. Pericardium There is no pericardial effusion. Other Information Study Quality: Fair Conclusion Severe LV dilation with severe reduction in LV systolic function (LVEF 15%). Asynchronous septum. Mild to moderate RV dilation with moderate reduction in RV function. Biatrial dilation. Severe low-flow, low-gradient (CELINA by continuity equation is 0.8 cm2. Peak velocity 2.2 m/s. Mean AV gradient 10 mmHg. Max AV gradient 20 mmHg. SVi 25 ml/m2). Severe MR (likely due to tethering of posterior MV leaflet - Justin class IIIB). Mild TR. Electronically signed by : Christianne Redd MD 04/17/2024 14:25:51
== END 2024-04-13 23:59 | disposition home or self-care (01) ==
LOC: RT 12:27
PROVIDERS: PCP Family Medicine; Visit Provider Physician Assistant
DX: I51.7 Cardiomegaly (principal); I36.1 Nonrheumatic tricuspid (valve) insufficiency; I50.23 Acute on chronic systolic (congestive) heart failure
CPT/HCPCS: 93306

== ENCOUNTER 2024-04-20 09:00 | Outpatient (CLI) | payer MEDICARE, OTHER, SELFPAY ==
--- NOTE | 2024-04-20 09:01 | US_ITS ---
FINAL REPORT CLINICAL HISTORY: lower abdominal pain FINDINGS: Limited sonographic images of the abdominal aorta were obtained. There is extensive plaque of the left iliac vessels and throughout the aorta. The aorta measures up to 1.7 cm. IMPRESSION: No evidence of abdominal aortic aneurysm. Reviewed, Interpreted and Dictated by Francisco Melara MD Transcribed by Jasmine Hilario Authenticated and [facility]
== END 2024-04-20 23:59 | disposition home or self-care (01) ==
LOC: RAD 09:01
PROVIDERS: PCP Family Medicine; Visit Provider Internal Medicine
DX: R10.32 Left lower quadrant pain (principal)
CPT/HCPCS: 76705

== ENCOUNTER 2024-07-24 11:25 | Outpatient (CLI) | payer MEDICARE, OTHER, SELFPAY ==
[2024-07-24 11:38] LABS: Microscopic, Urine URINE MICROSCOPIC (MICROSCOPIC)
[2024-07-24 12:27] LABS: Basophils # 0.1 K/mm3 (0-0.2); Basophils % 0.7 % (0.1-2.0); Eosinophils # 0.4 Kmm3 (0.0-0.4); Eosinophils % 4.4 % (0.1-12.0); Hematocrit 42.6 % (42.0-52.0); Hemoglobin 13.1 g/dL (14.1-18.0); Immature Granulocytes # 0.02 10^3uL; Immature Granulocytes % 0.2 %; Lymphocytes # 0.9 K/mm3 (0.7-4.5); Lymphocytes % 9.4 % (10-50); Mean Corpuscular HGB Conc 30.8 g/dL (31.8-35.4); Mean Corpuscular Hemoglobin 28.4 pg (27.0-31.2); Mean Corpuscular Volume 92.2 fl (80-94); Mean Platelet Volume 11.3 fl (7.4-10.4); Monocytes # 0.9 K/mm3 (0.1-1.0); Monocytes % 9.3 % (1.7-9.3); Neutrophils # 7.2 K/mm3 (1.8-7.8); Nucleated Red Blood Cells # 0 10^3/uL; Nucleated Red Blood Cells % 0 %; Platelet Count 179 K/mm3 (142-424); Red Blood Count 4.62 M/mm3 (4.60-6.20); Red Cell Distribution Width 14.3 % (11.5-17.5); Red Cell Distribution Width-SD 48.5 fL; White Blood Count 9.5 K/mm3 (4.8-10.8)
[2024-07-24 12:43] LABS: Appearance,Urine CLEAR (Clear); Bilirubin,Urine Negative (Negative); Blood, Urine Negative (Negative); Color,Urine YELLOW (Yellow); Glucose,Urine (UA) Negative (Negative); Ketones,Urine Negative (Negative); Leukocyte Esterase,Urine 1+ (Negative); Nitrate,Urine Negative (Negative); PH,Urine 5.5 (5.0-8.5); Protein,Urine Negative (Negative); Urobilinogen,Urine 0.2 EU/dl (0.2)
[2024-07-24 13:06] LABS: Albumin Level 3.9 g/dl (3.5-5.0); Anion Gap 8.4 mEq/L (5-15); Blood Urea Nitrogen 38 mg/dl (9-20); Calcium 9.1 mg/dl (8.4-10.2); Carbon Dioxide 24 mmol/L (22.0-30.0); Chloride 110 mmol/L (98-107); Estimated Glomerular Filt Rate 41 ml/min (>60); GFR (African American) 50 ML/MIN (>60); Glucose 142 mg/dl (74-100); Phosphorous 2.9 mg/dl (2.5-4.5); Potassium 4.4 mmoL/L (3.5-5.1); Sodium 138 mmol/L (136-145)
[2024-07-24 13:13] LABS: Creatinine,Urine Random 28 mg/dL (Not Estab.)
[2024-07-24 13:14] LABS: Intact Parathyroid Hormone 94.4 pg/mL (7.5-53.5)
== END 2024-07-24 23:59 | disposition home or self-care (01) ==
LOC: LAB 11:26
PROVIDERS: PCP Family Medicine; Visit Provider Internal Medicine Nephrology
DX: N18.30 Chronic kidney disease, stage 3 unspecified (principal); E21.3 Hyperparathyroidism, unspecified
CPT/HCPCS: 36415; 80069; 81001; 82570; 83970; 84156; 85025; 87086

== ENCOUNTER 2024-09-27 11:36 | Outpatient (CLI) | payer MEDICARE, OTHER, SELFPAY ==
--- OUTSIDE RECORDS SUMMARY | 2024-09-27 11:38 | XMS_ITS | Clinical Summary ---
Author Organization [facility] Address [address] [place] [address] Phone Care Team Providers Care E Learning Coordinator Name Role Phone Unavailable Unavailable Conditions or Problems No information available. Medications No information available. Medications Administered No information available. Allergies, Adverse Reactions, Alerts No information available. Results No information available. Plan of Care No information available. Procedures No information available. Vital Signs No information available. Immunizations No information available. Advance Directives No information available.
--- OUTSIDE RECORDS SUMMARY | 2024-09-27 11:39 | XMS_ITS | Encounter Summary ---
Author Organization [facility] Address [address] [place] [address] Care Team Providers Care Mucker Cofferdam Name Role Phone Prasad Burgos MD Primary Care Provider Encounter Details Date Type Department Care Team (Late st Contact Info) Description 09/08/2023 Orders Only External Location [address] [place] [address] Mitch Taylor PA [address] [place] [address] [address] Social History Tobacco Use Types Packs/Day Years Used Date Smoking Tobacco: Never Assessed Sex and Gender Information Value Date Recorded Sex Assigned at Male 09/20/2023 3:40 PM EDT Legal Sex Male 6:36 PM EDT Gender Identity Male 09/20/2023 3:40 PM EDT Sexual Orientation Not on file documented as of this encounter Plan of Treatment Not on file documented as of this encounter Procedures Procedure Name Priority Date/Time Associated Diagnosis Comments US OUTSIDE IMAGES 09/08/2023 8:44 AM EDT documented in this encounter Results * US OUTSIDE IMAGES (09/08/2023 8:44 AM EDT) Anatomical Region Laterality Modality Ultrasound 09/08/2023 8:44 AM EDT us Mitch SCHMIDT IMG US PROCEDURES Final Result documented in this encounter Visit Diagnoses Not on filedocumented in this encounter Care Teams Mucker Cofferdam Relationship Specialty Start Date End Date Prasad Burgos MD [facility] [place] [address] PCP - General 07/26/20 documented as of this encounter
--- OUTSIDE RECORDS SUMMARY | 2024-09-27 11:39 | XMS_ITS | Data Portability ---
[facility] Organization [facility] Address [address] [place] [address] Assessment No assessment recorded. Plan of Treatment Reminders Order Date Submit Date Provider Last Modified By Organization Details Last Modified Time Details Appointments OV EST 15 2024 09:15A M Dagoberto Knapp Jr, MD Not available Not available Not available Lab PSA, total + free, serum or plasma [id number] (Lab), [address], [place], [address], 10/20/2023 09:56:09 PSA, serum or plasma - DUE BEFORE 10/06/20232022 023 [email or web address] [facility] (Lab), [address], [place], [address], 10/09/2022 07:48:53 urinalysi s, dipstick 2022 023 [email or web address] [facility] [place], [address] [place] [address], [address], 10/05/2022 08:59:05 Referral None recorded. Procedures None recorded. Surgeries None recorded. Imaging None recorded. Medication Orders tamsulosi n 0.4 mg capsule 2023 024 [facility], [address] [facility] [address] [facility], [address], [place], [address], 10/13/2023 10:31:38 finasteri de 5 mg tablet [address] [facility], [address] [place] [address], [address], [place], [address], 10/13/2023 10:31:37 tamsulosi n 0.4 mg capsule [address] [facility], [address] [place] [address], [address], [place], [address], 10/02/2022 12:45:24 finasteri de 5 mg tablet [address] [facility], [address] [place] [address], [address], [place], [address], 10/02/2022 12:45:23 Patient TargetsNo targets recorded. Patient InstructionsNo instructions recorded. Reason for Referral None Reported. Results Created Date Observation Date Name Description Value Unit Range Abnormal Flag Note LastModifiedBy Organization Detail LastModifiedTime 10/03/1910/02/2022 urina lysis , dipst ick Leukocytes (reference range) trace Not Available [address], [address], 10/02/2022 09:23:41 10/03/19 23 10/02/2022 urina lysis , dipst ick Nitrite (reference range:) negati ve Not Available [facility] [address], [address], 10/02/2022 09:23:41 10/03/19 23 10/02/2022 urina lysis , dipst ick Urobilinogen (reference range) 0.2 Not Available [address], [address], 10/02/2022 09:23:41 10/03/19 23 10/02/2022 urina lysis , dipst ick Protein (reference range) 30 Not Available [address], [address], 10/02/2022 09:23:41 10/03/19 23 10/02/2022 urina lysis , dipst ick pH (reference range 5-8.5) 5.0 Not Available [address], [address], 10/02/2022 09:23:41 10/03/19 23 10/02/2022 urina lysis , dipst ick Blood (reference range:) negati ve Not Available [address], [address], 10/02/2022 09:23:41 10/03/19 23 10/02/2022 urina lysis , dipst ick Specific [place] (reference range) 1.020 Not Available [address], [address], 10/02/2022 09:23:41 10/03/19 23 10/02/2022 urina lysis , dipst ick Ketone (reference range) negati ve Not Available [address], [address], 10/02/2022 09:23:41 10/03/19 23 10/02/2022 urina lysis , dipst ick Bilirubin (reference range) negati ve Not Available [address], [address], 10/02/2022 09:23:41 10/03/19 23 10/02/2022 urina lysis , dipst ick Glucose (reference range) negati ve Not Available [address], [address], 10/02/2022 09:23:41 Result Notes None recorded. Problems Name Problem SNOMED Code Status Onset Date Resolution Date Notes Provider Name and Address Organization Details Recorded Time Heart disease 34668403 Active 023 RadhaKAREEN Wolfe [facility] [place] 3 08:46:20 Kidney disease 85616279 Active 023 KAREEN Gimenez [facility] [place] 3 08:46:32 Large prostate 236711634 Active 023 KAREEN Gimenez LPM[facility]. [facility] [place] 3 08:47:00 Kidney stone 42447129 Active 023 KAREEN Gimenez [facility] [place] 3 08:47:10 Problem Notes None recorded. Procedures Surgical History Date Name Laterality Status Provider Name and Address Organization Details Recorded Time Heart Surgery completed Radha Patel LPMt. [facility] [place] 10/02/2022 08:49:19 Imaging Results None recorded. Procedure Notes None recorded. Medical Equipment None Reported. Allergies Allergen ID Allergen Name Allergen Category Reaction Reaction Severity Criticality Documentation Date Start Date Code Code System Note Provider Name and Address Organization Details Recorded Time 66739 Cipro medicatio n Not available Not available Not available 10/02/2022 97252 3 RxNorm KAREEN Gimenez LPMt. [facility] [place] 3 08:44:19 Medications Name Sig Start Date Stop Date Status Note LastModified by Organization Details LastModified Time atorvastatin 40 mg tablet Take 1 tablet every day by oral route. active Not Available Not Available No t Available torsemide 20 mg tablet Take 1 tablet every day by oral route. active Not Available Not Available No t Available clopidogrel 75 mg tablet Take 1 tablet every day by oral route. 10/12 completed Not Available Not Available Not Available omeprazole 40 mg capsule,bonnie yed release Take 1 capsule every day by oral route. active Not Available Not Available No t Available Isosorbide Mononitrate CR 30 mg tablet,exten ded release Take 1 tablet every day by oral route. 10/12 completed Not Available Not Available Not Available spironolacto ne 25 mg tablet Take 1 tablet every day by oral route. active Not Available Not Available No t Available tamsulosin 0.4 mg capsule Take 1 capsule every day by oral route for 90 days. 2023 active Not Available Not Available Not Avai lable metoprolol succinate ER 25 mg tablet,exten ded release 24 hr Take 1 tablet every day by oral route. active Not Available Not Available No t Available calcitriol 0.25 mcg capsule Take 1 capsule every day by oral route. active Not Available Not Available No t Available finasteride 5 mg tablet Take 1 tablet every day by oral route for 90 days. 2023 active Not Available Not Available Not Avai lable valsartan 40 mg tablet Take 1 tablet twice a day by oral route. active Not Available Not Available No t Available aspirin active Not Available Not Avail able Not Available amlodipine 10/02 completed Not Available Not Available Not Available atenolol 10/12 completed Not Available Not Available Not Available Vitamin D3 active Not Available Not Av ailable Not Available Systane Balance 0.6 % eye drops active Not Available Not Available Not Available Brilinta 90 mg tablet 10/12 completed Not Available Not Available Not Available PreserVision AREDS-2 active Not Available Not Available Not Available cholecalcife rol (vit D3) 1,000 unit-vitamin K2 (MK4) 100 mcg tablet Take by oral route. 10/12 completed Not Available Not Available Not Available Vitals Date Recorded Body height Body mass index (BMI) Body weight Body temperature Provider Name and Address Organization Details Last Updated DateTime 10/02/2022 170.18 cm 25.1 kg/m2 93176.78 g 97.6 [degF] Radha Tejada [place] - [place] [facility] [place] 10/02/2022 08:53:14 Social History None recorded. Functional Status Question Answer Note LastModified by Organization D etails LastModified Time What is your level of alcohol consumption? None Information not available 10/02/2022 Mental Status None recorded. Family History Relationship Description Onset Age of this Age Resolved Age Notes LastModified by Organization Details LastModified Time Mother Heart disease dec [email or web address] Not available 10/02 08:47:45 Father Acute arthritis dec [email or web address] Not available 10/02 08:48:14 Sister Heart disease dec [email or web address] Not available 10/02 08:48:40 Sister Heart disease dec [email or web address] Not available 10/02 08:48:50 Medical History No medical history recorded. Past Encounters Encounter ID Performer Location Encounter Start Date Encounter Closed Date Diagnosis/Indication Diagnosis SNOMED-CT Code Diagnosis ICD10 Code Diagnosis Note [id number] Dagoberto Knapp Jr, MD [facility] [address] [address] 10/02/2022 08:34:34 10/02/2022 09:21:25 Prostate specific antigen above reference range 776037792 R97.20 Patient's recent PSA was 7.1 which is slightly lower than his PSA last year. Prostate exam last year shows a 20 g prostate that is smooth and symmetric. Patient is on finasterid e. We discussed the stability of his PSA and we will continue yearly follow-ups . Benign pro static hyperplasia with outflow obstruction 487166489 N40.1 patient continues on tamsulosin and finasterid e. He is voiding well and we will continue the medication s. [id number] Dagoberto Knapp Jr, MD [facility] [address] [address] 10/13/2023 08:55:36 10/13/2023 09:45:29 Screening for malignant neoplasm of prostate 246542559 Z12.5 a 8-year-old white male with history of elevated PSA. His recent PSA was 6.2. He is on finasterid e which would correlate with a PSA of 12.4. His PSA is stable and lower than his PSA of a year ago. We will continue monitoring . His prostate is benign today. Benign pro static hyperplasia with outflow obstruction 248337601 N40.1 patient continues on tamsulosin and finasterid e. He is voiding well and we will continue the medication s. Health Concerns Section Related Observation LastModified by Organization Detai ls LastModified Time None Recorded Concern Status LastModified by Organization Details LastModified Time None Recorded Advance Directives Directive None Recorded Payers Insurance Date Sequence Insurance Name Policy Number Policy Burdick Covered Member ID Burdick Member ID Guarantor Name 10/13/2023 1 [place]ICARE[place] Al Haramn [id number] 10/13/2023 2 [facility] (MEDICARE SUPPLEMENT) Al Harman [id number] Notes Date Note Type Note Provider Name and Address Organization Details Recorded Time 10/02/2022 text/html Patient is an 87-year-old white male with a history of BPH and elevated PSA. I previously saw the patient at [facility]. He transferred care to [facility]. Patient continues on tamsulosin and finasteride he denies any voiding difficulties.Patie nt with history of elevated PSA his most recent PSA drawn in September 2022 at [facility] was 7.1. This is slightly lower than his PSA last year was 7.6. PSAs prior to that were 4.1, 3.8 in August 2019, 3.2 in August 2018 and 4.0 in 2017.Patient also with a history of mild chronic kidney disease. Past medical history includes a stent placed in his carotid artery. He is now on Brilinta. Dagoberto Knapp Jr, MD [address] [place] [address], [address], [place], [address], [facility] [place] 10/02/2022 12:37:08 10/13/2023 text/html Patient is an 88-year-old white male with history of BPH and elevated PSA. Returns today for yearly checkup. His recent PSA was 6.2. Patient continues on finasteride and tamsulosin. His previous PSA was 7.1 in September 2022. Patient states he has lost 30 lb over the last 6-8 months despite a good appetite. Does have some cardiac issues and an ejection fraction of 20% by report. Dagoberto Knapp Jr, MD [address], [address], [place], [address], [facility] [place] 10/13/2023 10:25:34
--- OUTSIDE RECORDS SUMMARY | 2024-09-27 11:39 | XMS_ITS | Clinical Summary ---
Author Organization [facility] Address [address] [place] [address] Care Team Providers Care Public Health Analyst Name Role Phone Prasad Burgos MD Primary Care Provider [phone] Allergies Active Allergy Reactions Criticality Noted Date Comments Ciprofloxacin Other - please docum ent in the comment field Low 01/29/2022 Kidney failure Nsaids Other - please docum ent in the comment field Low 08/04/2016 Acute kidney failure Medications aspirin 81 MG EC tablet Take 1 tablet (81 mg) by mouth 1 (one) time each day in the morning. Active multivitamin-mi nerals-folic acid-coenzyme q10 (Preservision AREDS 2) capsule Take 1 capsule by mouth 2 (two) times a day. Active Propylene Glycol (SYSTANE BALANCE OP) Administer 1 drop into affected eye(s) if needed. Active cholecalciferol (Vitamin D-3) 50 MCG (2000 UT) capsule Take 1 capsule (2,000 Units) by mouth 1 (one) time each day. Active omeprazole (PriLOSEC) [address] capsule Take 1 capsule (40 mg) by mouth 1 (one) time each day. Do not crush or chew. Active calcitriol (Rocaltrol) 0.25 MCG capsule Take 1 capsule (0.25 mcg) by mouth 3 times a week. Active atorvastatin (Lipitor) 40 MG tablet Take 1 tablet (40 mg) by mouth every night. Active tamsulosin (Flomax) 0.4 MG 24 hr capsule Take 1 capsule (0.4 mg) by mouth 1 (one) time each day with dinner. Active finasteride (Proscar) 5 MG tablet Take 1 tablet (5 mg) by mouth 1 (one) time each day. Do not crush, chew, or split. Active nitroglycerin (Nitrostat) 0.[address] 1 tablet (0.4 mg) under the tongue every 5 (five) minutes if needed for chest pain. Active valsartan (Diovan) 40 MG tablet Take 0.5 tablets (20 mg) by mouth 2 (two) times a day. 30 tablet 4 Active metoprolol succinate XL (Toprol-XL) 25 MG 24 hr tablet Take 1 tablet (25 mg) by mouth 1 (one) time each day. Do not crush or chew. 30 tablet 4 Active torsemide (Demadex) 20 MG tablet Take 1 tablet (20 mg) by mouth 1 (one) time each day. 30 tablet 4 Active spironolactone (Aldactone) 25 MG tablet Take 0.5 tablets (12.5 mg) by mouth 1 (one) time each day. 15 each 4 Active Active Problems Problem Noted Date Diagnosed Date Severe protein-calorie malnutrition 09/23/2023 Shortness of breath 09/20/2023 Encounters Date Type Department Care Team Description 09/20/2024 Refill [facility] [place] [address] , [address] [place] [address] Randall Newell MD 07/13/2024 Refill [facility] [place] [address] , [address] [place] [address] Randall Newell MD from Last 3 Months Family History Medical History Relation Name Comments Heart disease Father Diabetes Mother Relation Name Status Comments Father Mother Social History Tobacco Use Types Packs/Day Years Used Date Smoking Tobacco: Former Cigarettes Smokeless Tobacco: Never Tobacco Cessation:Counseling Given: Not Answered Hunger Vital Sign Answer Date Recorded Within the past 12 months, y ou worried that your food would run out before you got the money to buy more. Never true 09/21/19 24 Within the past 12 months, t he food you bought just didn't last and you didn't have money to get more. Never true 09/21/2023 PRAPARE - Transportation Answer Date Re corded In the past 12 months, has l ack of transportation kept you from medical appointments or from getting medications? No 11/2023 In the past 12 months, has l ack of transportation kept you from meetings, work, or from getting things needed for daily living? No 09/21/2023 Housing Stability Vital Sign Answer Reinaldo e Recorded In the last 12 months, was t here a time when you were not able to pay the mortgage or rent on time? No 09/21/2023 [address] Lived in the Last Year Not on f ile 09/21/2023 In the last 12 months, was t here a time when you did not have a steady place to sleep or slept in a detention (including now)? No 09/21/2023 CAGE ASSESSMENT Answer Date Recorded Cage unable to access Not on file 09/21/2023 Cage max number of drinks Not on file 2023 Cage Beverages a week Not on file 09/21/2023 Have you ever felt you should CUT down on your d rinking? 0 09/21/2023 Have you been ANNOYED by people criticizing your drinking? 0 09/21/2023 Have you felt GUILTY about your drinking? 0 09/21/2023 Have you had a drink first t fahad in the morning (EYE-CARBON GRINDER) to steady your nerves or to get rid of a hangover? 0 09/21/2023 CAGE Questionnaire Score 0 024 Utilities Answer Date Recorded In the past 12 months has th e electric, gas, oil, or water company threatened to shut off services in your home? No 09/21/2023 Sex and Gender Information Value Date Recorded Sex Assigned at Male 09/20/2023 3:40 PM EDT Legal Sex Male 6:36 PM EDT Gender Identity Male 09/20/2023 3:40 PM EDT Sexual Orientation Not on file Last Filed Vital Signs Vital Sign Reading Time Taken Comments Blood Pressure 112/72 09/23/2023 3:25 PM EDT Pulse 81 09/23/2023 3:25 PM EDT Temperature 36.4 C (97.6 F) 09/23/2023 3:25 PM EDT Respiratory Rate 16 09/23/2023 3:25 PM EDT Oxygen Saturation 95% 09/23/2023 3:25 PM EDT Inhaled Oxygen Concentration - - Weight 63.1 kg (139 lb 1.8 oz) 09/23/2023 3:22 A M EDT Height 170.2 cm (5' 7.01 ) 09/23/2023 3:22 AM ED T per EMR Body Mass Index 21.78 09/23/2023 3:22 AM EDT Plan of Treatment Health Maintenance Due Date Last Done Comments [facility]-Depression Screening 1936 [facility]-Medicare Annual Wellness (AWV) 1936 [facility]-Infant/Child/Adol SDOH Screenings 1936 [facility]- SDOH Screenings 1954 [facility]-Adult SDOH Screenings 1954 [facility]-DTaP,Tdap,and Td Vaccine s (1 - Tdap) 09/12/1955 [facility]-Pneumococcal Vaccine: 50 + Years (1 of 1 - PCV) 1986 [facility]-Zoster Vaccines (1 of 2) 1986 [facility]-RSV Vaccine: 60+ Years o r (1 - 1-dose 75+ series) 09/12/2011 [id number] Vaccine (1 - 20 24-25 season) 2023 [facility]-Influenza Vaccine (#1) 2024 HPV Vaccines Aged Out No longer eligi ble based on patient's age to complete this topic [facility]-HIB Vaccines Aged Out No longer e ligible based on patient's age to complete this topic [facility]-Hepatitis A Vaccines Aged Out No longer eligible based on patient's age to complete this topic [facility]-IPV Vaccines Aged Out No longer e ligible based on patient's age to complete this topic [facility]-Rotavirus Vaccines Aged Out No lo nger eligible based on patient's age to complete this topic Insurance MEDICARE [facility] [place] [id number] Advance Directives * DNR/DNI (Latest Code Status on File) Date Activated Date Inactivated Comments 09/20/2023 5:22 PM 09/23/2023 7:02 PM Question Answer Comments DNR determined on/before admission date? Yes Patient has decision-making capacity? Yes Care Teams Public Health Analyst Relationship Specialty Start Date End Date Prasad Burgos MD [address] [facility] [place] [address] PCP - General 07/26/20
--- OUTSIDE RECORDS SUMMARY | 2024-09-27 11:39 | XMS_ITS | Encounter Summary ---
Author Organization Healthcare Address [address] [place] [address] Care Team Providers Care Bobbin Presser Name Role Phone Prasad Burgos MD Primary Care Provider [phone] Reason for Visit * Reason Comments Med Refill Encounter Details Date Type Department Care Team (Late st Contact Info) Description 09/20/2024 Refill [facility] [place] [address], [address] [place] [address] Randall Newell MD [address] [place] [address] Social History Tobacco Use Types Packs/Day Years Used Date Smoking Tobacco: Former Cigarettes Smokeless Tobacco: Never Hunger Vital Sign Answer Date Recorded Within [...] place to sleep or slept in a retirement (including now)? No 09/21/2023 CAGE ASSESSMENT Answer [...] drink first t fahad in the morning (EYE-PRE PLANNING ADVISOR) to steady your nerves or to get rid of a hangover? 0 09/21/2023 CAGE Questionnaire Score 0 024 Utilities Answer Date Recorded In the past 12 months has th [employer], gas, oil, or water company threatened to [...] on file documented as of this encounter Visit Diagnoses Not on filedocumented in this encounter Additional Health Concerns Assessment Noted Time A Body Mass Index follow-up plan has been documented for the patient 09/23/2023 4:23 PM EDT documented as of this encounter Care Teams Bobbin Presser Relationship Specialty Start Date End Date Prasad Burgos MD [address] [place] [address] PCP - General 07/26/20 documented as of this encounter
--- OUTSIDE RECORDS SUMMARY | 2024-09-27 11:39 | XMS_ITS | Encounter Summary ---
Author Organization Healthcare Address [address] [place] [address] Care Team Providers Care Lending Consultant Name Role Phone Prasad Burgos MD Primary Care Provider Reason for Visit * Reason Comments Med Refill Encounter Details Date Type Department Care Team (Late st Contact Info) Description 07/13/2024 Refill [facility] [place] [address], [address] [place] [address] Randall Newell MD [address] [place] [address] Social History Tobacco Use Types [...] place to sleep or slept in a group home (including now)? No 09/21/2023 CAGE ASSESSMENT Answer [...] drink first t fahad in the morning (EYE-PRECISION MACHINIST) to steady your nerves or to get rid of a hangover? 0 09/21/2023 CAGE Questionnaire Score 0 024 Utilities Answer Date Recorded In the past 12 months has th [place], gas, oil, or water company threatened to [...] documented as of this encounter Care Teams Lending Consultant Relationship Specialty Start Date End Date Prasad Burgos MD [address] [place] [address] PCP - General 07/26/20 documented as of this encounter
[2024-09-28 05:15] LABS: PSA, Free 1.07 ng/mL
== END 2024-09-27 23:59 | disposition home or self-care (01) ==
LOC: LAB 11:37
PROVIDERS: PCP Family Medicine; Visit Provider Urology
DX: R97.20 Elevated prostate specific antigen [PSA] (principal)
CPT/HCPCS: 36415; 84153; 84154

== ENCOUNTER 2024-11-07 08:44 | Day surgery (SDC) | payer MEDICARE, OTHER, SELFPAY ==
[2024-11-07] VITALS (14 sets, daily range): BP systolic 101–191; BP diastolic 55–114; PULSE 72–117; RESP 18–20; O2SAT 91–97; BMI 22.7
--- NOTE | 2024-11-07 07:17 | IR_ITS ---
APPROVED REPORT Patient Location: Outpatient PROCEDURES Left heart catheterization Left ventriculogram Selective coronary angiogram INDICATION New onset cardiomyopathy ejection fraction 24% Informed consent was obtained prior to the procedure. COMPLICATIONS NONE Estimated Blood Loss: LESS THAN 10 ML TECHNIQUE One percent lidocaine used to anesthetize the right anterior aspect of the wrist. The right radial artery was accessed via the Seldinger technique. A 6 Thai sheath was placed in the right radial artery. 2.5 mg of Verapamil, 800 mcg of nitroglycerin, 1mg Lidocaine and 5000 U Heparin were given through the arterial sheath. The JL3 catheter was also used to perform left heart catheterization, left ventriculogram and selective coronary angiogram. At the end of the procedure the sheath was removed good hemostasis was achieved using Traclet band, patient was transferred to the postop holding area in stable condition. ANGIOGRAPHIC RESULTS The left main artery Normal The left anterior descending artery Has proximal mid vessel concentric 30% stenosis The circumflex artery Has proximal 40% stenosis The right coronary artery Is codominant has 40% mid vessel stenosis with a distal 60% stenosis The JIMENEZ ventriculogram reveals Severely dilated globally hypokinetic ejection fraction 15 to 20% The left ventricular end-diastolic pressure 20 mmHg IMPRESSION Mild to moderate coronary disease as described above which does not explain the degree of cardiomyopathy patient is experiencing Severely reduced ejection fraction Elevated LVEDP PLAN 1. GDMT for systolic heart failure 2. GDMT for coronary artery disease 3. Aggressive risk factor modification Electronically signed by : Abel Grigsby MD 11/07/2024 14:23:10
[2024-11-07 09:08] LABS: Hematocrit 48.2 % (42.0-52.0); Hemoglobin 14.9 g/dL (14.1-18.0); Immature Granulocytes % 0.2 %; Mean Corpuscular HGB Conc 30.9 g/dL (31.8-35.4); Mean Corpuscular Hemoglobin 29.2 pg (27.0-31.2); Mean Corpuscular Volume 94.5 fl (80-94); Nucleated Red Blood Cells % 0 %; Platelet Count 165 K/mm3 (142-424); Red Blood Count 5.10 M/mm3 (4.60-6.20); Red Cell Distribution Width-SD 45.8 fL; White Blood Count 9.6 K/mm3 (4.8-10.8)
[2024-11-07 09:20] LABS: Chloride 106 mmol/L (98-107); Sodium 141 mmol/L (136-145)
[2024-11-07 09:21] LABS: Potassium 4.4 mmoL/L (3.5-5.1)
[2024-11-07 09:24] LABS: Anion Gap 15.4 mEq/L (5-15); Blood Urea Nitrogen 24 mg/dl (9-20); Calcium 9.2 mg/dl (8.4-10.2); Carbon Dioxide 24 mmol/L (22.0-30.0); Creatinine Clearance Estimated 34 mL/min (50-200); Creatinine,Serum 1.40 mg/dl (0.66-1.25); Estimated Glomerular Filt Rate 48 ml/min (>60); GFR (African American) 58 ML/MIN (>60); Glucose 118 mg/dl (74-100)
--- NOTE | 2024-11-07 12:28 | SUR.PREOP ---
pt updated on wait time. pt ambulated to bathroom. no family present at this time, instructed to call at discharge.
[2024-11-07] MEDS: HEPARIN 1,000 UNITS/500ML NS (CATH LAB) 3000 UNIT IV (12:59)
[2024-11-07] MEDS: 0.9 % SODIUM CHLORIDE 500 ML 25 ML IV (12:59)
[2024-11-07] MEDS: LIDOCAINE 1% 10ML MDV 10 ML IJ (12:59)
[2024-11-07] MEDS: NITROGLYCERIN 800MCG/8ML SYR (CATH LAB) 800 MCG IA (12:59)
[2024-11-07] MEDS: VERAPAMIL 2.5MG/ML 2ML VIAL 2.5 MG IV (13:00)
[2024-11-07] MEDS: HEPARIN 1,000 UNITS/ML 10ML VIAL (CATH LAB) 5000 UNIT IV (13:00)
[2024-11-07] MEDS: IOPAMIDOL-370 (76%);100ML BOTTLE 50 ML IV (15:38)
== END 2024-11-07 16:14 | disposition home or self-care (01) ==
PROVIDERS: PCP Family Medicine; Visit Provider Internal Medicine
PROC: 4A023N7 Measurement of Cardiac Sampling and Pressure, Left Heart, Percutaneous Approach (ICD-10-PCS; CPT 93452; principal; 2024-11-07 10:00)
DX: I25.118 Atherosclerotic heart disease of native coronary artery with other forms of angina pectoris (principal); I42.9 Cardiomyopathy, unspecified; R94.31 Abnormal electrocardiogram [ECG] [EKG]; I13.0 Hypertensive heart and chronic kidney disease with heart failure and stage 1 through stage 4 chronic kidney disease, or unspecified chronic kidney disease; I50.22 Chronic systolic (congestive) heart failure; N18.4 Chronic kidney disease, stage 4 (severe); I35.0 Nonrheumatic aortic (valve) stenosis; I65.23 Occlusion and stenosis of bilateral carotid arteries; I34.0 Nonrheumatic mitral (valve) insufficiency; E78.2 Mixed hyperlipidemia; K21.9 Gastro-esophageal reflux disease without esophagitis; E21.0 Primary hyperparathyroidism; Z87.891 Personal history of nicotine dependence; Z95.810 Presence of automatic (implantable) cardiac defibrillator; Z95.5 Presence of coronary angioplasty implant and graft; Z79.82 Long term (current) use of aspirin; Z79.899 Other long term (current) drug therapy; Z88.1 Allergy status to other antibiotic agents; Z88.8 Allergy status to other drugs, medicaments and biological substances; Z82.49 Family history of ischemic heart disease and other diseases of the circulatory system
CPT/HCPCS: 80048; 85025; 93458; 99152; C1725; C1769; J1200; J1644; J2003; J7040; Q9967

== ENCOUNTER 2024-11-20 12:37 | Outpatient (CLI) | payer MEDICARE, OTHER, SELFPAY ==
--- OUTSIDE RECORDS SUMMARY | 2024-11-20 12:40 | XMS_ITS | Clinical Summary ---
Author Organization [facility] Address [address] [place] [address] Phone Care Team Providers Care Lockstitch Binder Name Role Phone Unavailable Unavailable Conditions or Problems No information available. Medications No information available. Medications Administered No information available. Allergies, Adverse Reactions, Alerts No information available. Results No information available. Plan of Care No information available. Procedures No information available. Vital Signs No information available. Immunizations No information available. Advance Directives No information available.
--- OUTSIDE RECORDS SUMMARY | 2024-11-20 12:41 | XMS_ITS | Encounter Summary ---
Author Organization Healthcare Address [address] [place] [address] Care Team Providers Care Natural Gas Trader Name Role Phone Prasad Burgos MD Primary Care Provider [phone] Reason for Visit * Reason Comments Med Refill Encounter Details Date Type Department Care Team (Late st Contact Info) Description 09/20/2024 Refill [facility] [place] [address] [facility], [address] [place] [address] Randall Newell MD [address] [place] [address] Social History Tobacco Use Types [...] place to sleep or slept in a long term (including now)? No 09/21/2023 CAGE ASSESSMENT Answer [...] drink first t fahad in the morning (EYE-GROUP FITNESS INSTRUCTOR) to steady your nerves or to get rid of a hangover? 0 09/21/2023 CAGE Questionnaire Score 0 024 Utilities Answer Date Recorded In the past 12 months has th [employer], gas, oil, or water company threatened to [...] documented as of this encounter Care Teams Natural Gas Trader Relationship Specialty Start Date End Date Prasad Burgos MD [address] [place] [address] PCP - General 07/26/20 documented as of this encounter
--- OUTSIDE RECORDS SUMMARY | 2024-11-20 12:41 | XMS_ITS | Encounter Summary ---
Author Organization Healthcare Address [address] [place] [address] Care Team Providers Care Copier Technician Name Role Phone Prasad Burgos MD Primary Care Provider [phone] Reason for Visit * Reason Comments Med Refill Encounter Details Date Type Department Care Team (Late st Contact Info) Description 07/13/2024 Refill [facility] [place] [address] [facility], [address] [place] [address] Randall Newell MD [address] [place] [address] Social History Tobacco Use Types [...] place to sleep or slept in a residential (including now)? No 09/21/2023 CAGE ASSESSMENT Answer [...] drink first t fahad in the morning (EYE-INDUSTRIAL PAINTER) to steady your nerves or to get rid of a hangover? 0 09/21/2023 CAGE Questionnaire Score 0 024 Utilities Answer Date Recorded In the past 12 months has th [employer], gas, oil, or water company threatened to [...] documented as of this encounter Care Teams Copier Technician Relationship Specialty Start Date End Date Prasad Burgos MD [address] [place] [address] PCP - General 07/26/20 documented as of this encounter
--- OUTSIDE RECORDS SUMMARY | 2024-11-20 12:41 | XMS_ITS | Clinical Summary ---
Author Organization [facility] Address [address] [place] [address] Care Team Providers Care Senior Marketing Coordinator Name Role Phone Prasad Burgos MD Primary Care Provider [phone] Allergies Active Allergy Reactions Criticality Noted Date [...] Type Department Care Team Description 09/20/2024 Refill [facility] [place] [address] [facility], [address] [place] [address] Randall Newell MD from Last 3 Months [...] drink first t fahad in the morning (EYE-PRODUCTION GENERALIST) to steady your nerves or to get rid of a hangover? 0 09/21/2023 CAGE Questionnaire Score 0 024 Utilities Answer Date Recorded In the past 12 months has th [employer], gas, oil, or water [employer] threatened to shut off services in your [...] Screening 1936 [facility]-Medicare Annual Wellness (AWV) 1936 [facility]-/Child/Adol SDOH Screenings 1936 [facility]- SDOH Screenings 1954 [facility]-Adult SDOH Screenings 1954 [facility]-DTaP,Tdap,and Td Vaccine s (1 - Tdap) 09/12/1955 [facility]-Pneumococcal Vaccine: 50 + Years (1 of 1 - PCV) 1986 [facility]-Zoster Vaccines (1 of 2) 1986 [facility]-RSV Vaccine: 60+ Years o r (1 - 1-dose 75+ series) 09/12/2011 [id number] Vaccine (1 - 20 24-25 season) 2024 [facility]-Influenza Vaccine (#1) 2024 HPV Vaccines Aged [...] age to complete this topic Insurance MEDICARE [facility] A LIDYA HERNANDES [id number] Advance Directives * DNR/DNI (Latest Code Status on File) Date Activated Date Inactivated Comments 09/20/2023 5:22 PM 09/23/2023 7:02 PM Question Answer Comments DNR determined on/before admission date? Yes Patient has decision-making capacity? Yes Care Teams Senior Marketing Coordinator Relationship Specialty Start Date End Date Prasad Burgos MD [address] [place] [address] PCP - General 07/26/20
--- OUTSIDE RECORDS SUMMARY | 2024-11-20 12:41 | XMS_ITS | Clinical Summary ---
Author Organization [facility] Address [address] [place] [id number] Care Team Providers Care Bungy Jump Master Name Role Phone Prasad Burgos MD Primary Care Provider + Allergies Active Allergy Reactions Criticality Noted Date Comments Ciprofloxacin Other (See Comments) Low 01/29/2022 Kidney failure Nsaids Other (See Comments) Low 08/04/2016 AK[facility] Medications finasteride (PROSCAR) 5 MG tablet Take 1 tablet by mouth Daily. Active tamsulosin (FLOMAX) 0.4 MG capsule 24 hr capsule Take 1 capsule by mouth Every Night. Active atorvastatin (LIPITOR) 40 MG tablet Take 1 tablet by mouth Daily. Active omeprazole (priLOSEC) 20 MG capsule Take 1 capsule by mouth Daily. Active aspirin 81 MG EC tablet Take 1 tablet by mouth Daily. Active Cholecalciferol (Vitamin D3) 25 MCG (1000 UT) capsule Take 2 capsules by mouth. Active spironolactone (ALDACTONE) 25 MG tablet Take 0.5 tablets by mouth Daily. 09/24/2023 Active torsemide (DEMADEX) 20 MG tablet Take 1 tablet by mouth Daily. 09/24/2023 Active metoprolol succinate XL (TOPROL-XL) 25 MG 24 hr tablet Take 1 tablet by mouth Daily. 09/24/2023 Active nitroglycerin (NITROSTAT) 0.[address] 1 tablet under the tongue. Active valsartan (DIOVAN) 40 MG tablet Take 0.5 tablets by mouth. 09/23/2023 Active calcitriol (ROCALTROL) 0.25 MCG capsule Take 1 capsule by mouth Daily. 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 Continue current treatment regimen. Blood pressure will be reassessed at the next regular appointment. Amlodipine refilled Arachnoid cyst 08/04/2016 Family History Medical History Relation Name Comments Arthritis Father Heart attack Father No Known Problems Mother Relation Name Status Comments Father Mother Social History Tobacco Use Types Packs/Day Years Used Date Smoking Tobacco: Former Cigarettes 1 70 1 948 - 2017 Smokeless Tobacco: Former Chew Quit: 2018 Alcohol Use Standard Drinks/Week Comments No 0 (1 standard drink = 0.6 oz pur e alcohol) PHQ-2 Answer Date Recorded Retired PHQ-9: Brief Depression Severity Measure Score 0 11/18/2022 PHQ-2 Answer Date Recorded Patient Health Questionnaire-2 Score 0 08/03/2024 Sex and Gender Information Value Date Recorded Sex Assigned at Not on file Legal Sex Male 1:42 PM EDT Gender Identity Not on file Sexual Orientation Not on file Last Filed Vital Signs Vital Sign [place] Time Taken Comments Blood Pressure 104/62 08/03/2024 9:39 AM EDT Pulse 77 08/03/2024 9:39 AM EDT Temperature 36.5 C (97.7 F) 08/03/2024 9:39 AM EDT Respiratory Rate 16 08/03/2024 9:39 AM EDT Oxygen Saturation 98% 08/03/2024 9:39 AM EDT Inhaled Oxygen Concentration - - Weight 66.5 kg (146 lb 9.6 oz) 08/03/2024 9:39 A M EDT Height 170.2 cm (5' 7 ) 08/03/2024 9:39 AM EDT Body Mass Index 22.96 08/03/2024 9:39 AM EDT Plan of Treatment Upcoming Encounters Date Type Department Care Team (Late st Contact Info) Description 02/23/2025 10:00 AM EST Office Visit [facility] [address] [place] [address] Prasad Burgos MD [address] [place] [address] Health Maintenance Due Date Last Done Comments Pneumococcal Vaccine 50+ (1 of 2 - PCV) 09/12/1954 TDAP/TD VACCINES (1 - Tdap) 09/12/1955 ZOSTER VACCINE (1 of 2) 1986 RSV Vaccine - Adults (1 - 1-dose 75+ series) 2 COVID-19 Vaccine (1 - season) 2024 INFLUENZA VACCINE 12/13/2024 ANNUAL WELLNESS VISIT 08/03/2025 08/03/2024 Procedures Procedure Name Priority Date/Time Associated Diagnosis Comments SCANNED - LABS 11/07/2024 SCANNED - IMAGING 11/07/2024 from Last 3 Months Results * IMAGING SCANNED (11/07/2024) Anatomical Region Laterality Modality Radiographic Beth ging Prasad Burgos MD IMG DIAGNOSTIC IMAGING O RDERABLES Final Result * LABS SCANNED (11/07/2024) Prasad Burgos MD LAB BLOOD ORDERABLES Fin al Result from Last 3 Months Insurance MEDICARE A & B Member Subscriber Plan / Payer (Ef fective 2001-Present) Name:Al Harman Member ID:[id number] Relation to Subscriber:Self Name:Al Harman Subscriber ID:[id number] Payer ID:[id number] Group ID:Not on file Type:Not on file Address: [facility] [id number] [employer] Care Teams Bungy Jump Master Relationship Specialty Start Date End Date Prasad Burgos MD [address] [place] [address] PCP - General Family Medicine 05/17/24
--- OUTSIDE RECORDS SUMMARY | 2024-11-20 12:41 | XMS_ITS | Encounter Summary ---
Author Organization [facility] Address [address] [place] [address] Care Team Providers Care Discharge Coordinator Name Role Phone Prasad Burgos MD Primary Care Provider [phone] Encounter Details Date Type Department Care Team (Late st Contact Info) Description 09/08/2023 Orders Only External Location [address] [place] [address] Mitch Taylor PA [address] [place] [address] [address] Social History Tobacco Use Types [...] on filedocumented in this encounter Care Teams Discharge Coordinator Relationship Specialty Start Date End Date Prasad Burgos MD [facility] [place] [address] PCP - General 07/26/20 documented as of this encounter
[2024-11-20 12:43] LABS: Microscopic, Urine URINE MICROSCOPIC (MICROSCOPIC)
[2024-11-20 12:58] LABS: Bilirubin,Urine Negative (Negative); Color,Urine YELLOW (Yellow); Glucose,Urine (UA) Negative (Negative); Ketones,Urine Negative (Negative); Leukocyte Esterase,Urine 1+ (Negative); PH,Urine 5.5 (5.0-8.5); Protein,Urine Negative (Negative); Specific Gravity, Urine 1.015 (1.005-1.030); Urobilinogen,Urine 0.2 EU/dl (0.2)
[2024-11-20 13:12] LABS: Bacteria,Urine 1+ /lpf; WBC,Urine Occasional #/hpf (0-3)
[2024-11-20 13:16] LABS: Chloride 106 mmol/L (98-107); Sodium 138 mmol/L (136-145)
[2024-11-20 13:17] LABS: Albumin Level 4.0 g/dl (3.5-5.0); Potassium 4.8 mmoL/L (3.5-5.1)
[2024-11-20 13:19] LABS: Anion Gap 10.8 mEq/L (5-15); Blood Urea Nitrogen 20 mg/dl (9-20); Carbon Dioxide 26 mmol/L (22.0-30.0); Creatinine,Serum 1.30 mg/dl (0.66-1.25); Estimated Glomerular Filt Rate 52 ml/min (>60); GFR (African American) 63 ML/MIN (>60)
[2024-11-20 13:20] LABS: Calcium 9.5 mg/dl (8.4-10.2); Glucose 113 mg/dl (74-100); Phosphorous 3.4 mg/dl (2.5-4.5)
== END 2024-11-20 23:59 | disposition home or self-care (01) ==
LOC: LAB 12:38
PROVIDERS: PCP Family Medicine; Visit Provider Internal Medicine Nephrology
DX: N18.30 Chronic kidney disease, stage 3 unspecified (principal)
CPT/HCPCS: 36415; 80069; 81001; 82570; 84156; 87086

== ENCOUNTER 2025-02-01 14:23 | Outpatient (CLI) | payer MEDICARE, OTHER, SELFPAY ==
--- OUTSIDE RECORDS SUMMARY | 2024-12-22 12:45 | XMS_ITS | Encounter Summary ---
[facility] Address [address] [place] [address] Care Team Providers Care Machining And Assembly Supervisor Name Role Phone Prasad Burgos MD Primary Care Provider + Reason for Visit * Reason Comments Diarrhea For the past week Encounter Details Date Type Department Care Team (Late st Contact Info) Description 12/22/2024 1:45 PM EDT Office Visit [facility] [address] [place] [address] Prasad Burgos MD [address] [place] [address] Colitis (Primary Dx); Pressure injury [...] get to heal despite use of various rbdd-tyh-nhtayky creams or ointments such as Neosporin or [...] Description 02/23/2025 10:00 AM EST Office Visit [facility] [address] [facility] [place] [address] Prasad Burgos MD [address] [facility] [place] [address] documented as of this encounter Procedures Procedure Name Priority Date/Time Associated Diagnosis Comments POCT URINALYSIS DIPSTICK, MANUAL Routine 12/22/2024 2:02 PM EDT Urinary frequency documented in this encounter Results * (ABNORMAL) POC Urinalysis Dipstick (12/22/2024 2:02 PM EDT) Color Yellow Yellow, Straw, Dark Yellow, Livia [facility] Clarity, UA Clear Clear [facility] Glucose, UA Negative Negative mg/dL [facility] Bilirubin Negative Negative [facility] Ketones, UA Negative Negative [facility] Specific [place] 1.025 1.005 - 1.030 [facility] Blood, UA Negative Negative [facility] pH, Urine 6.0 5.0 - 8.0 [facility] Protein, POC Trace(A) Negative mg/dL [facility] Urobilinogen, UA Normal Normal, 0.2 E.U./dL [facility] Leukocytes Negative Negative [facility] Nitrite, UA Negative Negative [facility] Urine 12/22/2024 2:02 PM EDT Prasad Burgos MD POINT OF CARE TEST ORDER VINEET Final Result [facility]
[address] [place] [address], documented in this encounter Visit Diagnoses Diagnosis Colitis- Primary Other and unspecified noninfectious gastroenteritis and colitis Pressure injury of sacral region, stage 1 Urinary frequency documented in this encounter Care Teams Machining And Assembly Supervisor Relationship Specialty Start Date End Date Prasad Burgos MD [address] [place] [address] PCP - General Family Medicine 05/17/24 documented as of this encounter
--- OUTSIDE RECORDS SUMMARY | 2025-02-01 12:15 | XMS_ITS | Encounter Summary ---
Author Organization [facility] Address [address] [place] [address] Care Team Providers Care Groundwater Programs Director Name Role Phone Prasad Burgos MD Primary Care Provider + Reason for Visit * Reason Comments Diarrhea Returned several day s ago. Pt is currently taking Pepto and Metamucil Encounter Details Date Type Department Care Team (Late st Contact Info) Description 02/01/2025 12:15 PM EST Office Visit [facility] [address] [place] [address] Prasad Burgos MD 210 [place] [address] Diarrhea, unspecified type (Primary Dx) [...] studies. Patient may need GI evaluation at [facility] as well. Follow Up No follow-ups on file. Patient was given instructions and counseling regarding his condition or for health maintenance advice. Please see specific information pulled into the AVS if appropriate. documented in this encounter Plan of Treatment Upcoming Encounters Date Type Department Care Team (Late st Contact Info) Description 02/23/2025 10:00 AM EST Office Visit [facility] 210 [facility] [place] [place] [phone] Prasad Burgos MD [address] [place] [address] Scheduled Orders Name Type Priority Associated Diagnoses [...] Primary documented in this encounter Care Teams Groundwater Programs Director Relationship Specialty Start Date End Date Prasad Burgos MD [address] [place] [address] PCP - General Family Medicine 05/17/24 documented as of this encounter
[2025-02-01 14:43] LABS: Hematocrit 40.6 % (42.0-52.0); Hemoglobin 13.3 g/dL (14.1-18.0); Mean Corpuscular HGB Conc 32.8 g/dL (31.8-35.4); Mean Corpuscular Hemoglobin 30.8 pg (27.0-31.2); Mean Corpuscular Volume 94.0 fl (80-94); Nucleated Red Blood Cells % 0 %; Platelet Count 192 K/mm3 (142-424); Red Blood Count 4.32 M/mm3 (4.60-6.20); Red Cell Distribution Width-SD 49.8 fL; White Blood Count 12.3 K/mm3 (4.8-10.8)
[2025-02-01 15:09] LABS: Alanine Aminotransferase 10 U/L (12-78); Albumin Level 3.3 g/dl (3.5-5.0); Albumin/Globulin Ratio 1.4 (1.1-1.8); Alkaline Phosphatase 72 U/L (38-126); Anion Gap 11.7 mEq/L (5-15); Aspartate Amino Transferase 18 U/L (17-59); Bilirubin,Total 0.5 mg/dl (0.2-1.3); Blood Urea Nitrogen 18 mg/dl (9-20); Calcium 8.9 mg/dl (8.4-10.2); Carbon Dioxide 20 mmol/L (22.0-30.0); Chloride 109 mmol/L (98-107); Creatinine,Serum 1.70 mg/dl (0.66-1.25); Estimated Glomerular Filt Rate 38 ml/min (>60); GFR (African American) 46 ML/MIN (>60); Globulin 2.4 g/dL (1.3-3.2); Glucose 116 mg/dl (74-100); Potassium 3.7 mmoL/L (3.5-5.1); Sodium 137 mmol/L (136-145); Total Protein,Serum 5.7 g/dl (6.3-8.2)
[2025-02-01 15:25] LABS: Free T4 (Free Thyroxine) 1.72 ng/dl (0.78-2.19)
[2025-02-01 15:39] LABS: Thyroid Stimulating Hormone 4.79 uIU/mL (0.465-4.68)
--- OUTSIDE RECORDS SUMMARY | 2025-02-01 16:43 | XMS_ITS | Clinical Summary ---
Author Organization [facility] Address [address] [facility] [address] [place] [address] Phone Care Team Providers Care Copy Reader Name Role Phone Unavailable Unavailable Conditions or Problems No information available. Medications No information available. Medications Administered No information available. Allergies, Adverse Reactions, Alerts No information available. Results No information available. Plan of Care No information available. Procedures No information available. Vital Signs No information available. Immunizations No information available. Advance Directives No information available.
--- OUTSIDE RECORDS SUMMARY | 2025-02-01 16:44 | XMS_ITS | Encounter Summary ---
Author Organization [facility] Address [address] [place] [address] Care Team Providers Care Secondary Education Professor Name Role Phone Prasad Burgos MD Primary Care Provider Encounter Details Date Type Department Care Team (Late st Contact Info) Description 09/08/2023 Orders Only External Location [address] [place] [address] Mitch Taylor PA [address] [place] [address] [address] Social History Tobacco Use Types [...] on filedocumented in this encounter Care Teams Secondary Education Professor Relationship Specialty Start Date End Date Prasad Burgos MD [facility] [place] [address] PCP - General 07/26/20 documented as of this encounter
--- OUTSIDE RECORDS SUMMARY | 2025-02-01 16:44 | XMS_ITS | Encounter Summary ---
Author Organization [facility] Address [address] [place] [address] Care Team Providers Care Stage Settings Painter Name Role Phone Prasad Burgos MD Primary Care Provider + Encounter Details Date Type Department Care Team (Latest Contact Info) Description 02/01/2025 Travel Social History Tobacco Use Types Packs/Day Years [...] as of this encounter Plan of Treatment Upcoming Encounters Date Type Department Care Team (Late st Contact Info) Description 02/23/2025 10:00 AM EST Office Visit [facility] [address] [place] [address] Prasad Burgos MD [address] [place] [address] documented as of this encounter Visit Diagnoses Not on filedocumented in this encounter Care Teams Stage Settings Painter Relationship Specialty Start Date End Date Prasad Burgos MD [address] [place] [address] PCP - General Family Medicine 05/17/24 documented as of this encounter
--- OUTSIDE RECORDS SUMMARY | 2025-02-01 16:44 | XMS_ITS | Clinical Summary ---
Author Organization [facility] Address [address] [place] [id number] Care Team Providers Care Hand Coremaker Name Role Phone Prasad Burgos MD Primary [...] tablet Take 0.5 tablets by mouth Daily. 4 Active torsemide (DEMADEX) 20 MG tablet Take 1 tablet by mouth Daily. 4 Active metoprolol succinate XL (TOPROL-XL) 25 MG 24 hr tablet Take 1 tablet by mouth Daily. 4 Active nitroglycerin (NITROSTAT) 0.[address] 1 tablet under the tongue. Active valsartan (DIOVAN) 40 MG tablet Take 0.5 tablets by mouth. 4 Active calcitriol (ROCALTROL) 0.25 MCG capsule Take 1 capsule by mouth Daily. Active multivitamin with minerals (OCUVITE-LUTEIN PO) Active metroNIDAZOLE (FLAGYL) 500 MG tabletIndicatio ns:Colitis Take 1 tablet by mouth 3 (Three) Times a Day. 21 tablet Active Additional Information Patient not taking.Reported on 02/01/2025 AMIODARONE HCL PO Take by mouth. Activ e Active Problems Problem Noted Date Diagnosed Date [...] regular appointment. Amlodipine refilled Arachnoid cyst 08/04/2016 Encounters Date Type Department Care Team Description 02/01/2025 12:15 PM EST Office Visit [facility] [address] [place] [address] Prasad Burgos MD Diarrhea, unspecified type (Primary Dx) 02/01/2025 Travel 12/22/2024 1:45 PM EDT Office Visit [facility] [address] [place] [address] Prasad Burgos MD Colitis (Primary Dx); Pressure injury of sacral region, stage 1; Urinary frequency 12/22/2024 Travel from Last 3 Months Family History Medical [...] Mass Index 22.15 02/01/2025 11:56 AM EST Plan of Treatment Upcoming Encounters Date Type Department Care Team (Late st Contact Info) Description 02/23/2025 10:00 AM EST Office Visit [facility] 210 [facility] [place] [address] Prasad Burgos MD 210 [facility] [place] [address] Health Maintenance Due Date Last Done Comments TDAP/TD VACCINES (1 - Tdap) 09/12/1954 ZOSTER VACCINE (1 of 2) 1986 RSV Vaccine - Adults (1 - 1- dose 75+ series) 09/12/2011 COVID-19 Vaccine (#1) 02/15/2025 Postpo helder from 1941 (Product Unavailable) INFLUENZA VACCINE 06/20/2025 Postponed from 10/13/2024 (Patient Refused) Pneumococcal Vaccine 50+ (1 of 2 - PCV) 06/20/2025 Postponed from 09/11 (Patient Refused) ANNUAL WELLNESS VISIT 08/03/2025 08/03/2024 Procedures Procedure Name Priority Date/Time Associated Diagnosis Comments POCT URINALYSIS DIPSTICK, MANUAL Routine 12/22/2024 2:02 PM EDT Urinary frequency SCANNED - LABS 11/07/2024 SCANNED - IMAGING 11/07/2024 from Last 3 Months Results * (ABNORMAL) POC Urinalysis Dipstick (12/22/2024 2:02 PM EDT) Color Yellow Yellow, Straw, Dark Yellow, Livia [facility] Clarity, UA Clear Clear [facility] Glucose, UA Negative Negative mg/dL [facility] Bilirubin Negative Negative [facility] Ketones, UA Negative Negative [facility] Specific [place] 1.025 1.005 - 1.030 [facility] Blood, UA Negative Negative [facility] pH, Urine 6.0 5.0 - 8.0 [facility] Protein, POC Trace(A) Negative mg/dL [facility] Urobilinogen, UA Normal Normal, 0.2 E.U./dL [facility] Leukocytes Negative Negative [facility] Nitrite, UA Negative Negative [facility] Urine 12/22/2024 2:02 PM EDT Prasad Burgos MD POINT OF CARE TEST ORDER VINEET Final Result [facility]
[address] [place] [id number], * IMAGING SCANNED (11/07/2024) Anatomical Region Laterality Modality Radiographic Beth ging Prasad Burgos MD IMG DIAGNOSTIC IMAGING O RDERABLES Final Result * LABS SCANNED (11/07/2024) Prasad Burgos MD LAB BLOOD ORDERABLES Fin al Result from Last 3 Months Insurance MEDICARE A & B [facility] Care Teams Hand Coremaker Relationship Specialty Start Date End Date Prasad Burgos MD [address] [place] [address] PCP - General Family Medicine 05/17/24
--- OUTSIDE RECORDS SUMMARY | 2025-02-01 16:44 | XMS_ITS | Encounter Summary ---
Author Organization [facility] Address [address] [place] [address] Care Team Providers Care Preschool Teacher Name Role Phone Prasad Burgos MD Primary Care Provider + Encounter Details Date Type Department Care Team (Latest Contact Info) Description 12/22/2024 Travel Social History Tobacco Use Types Packs/Day [...] [facility] [address] [place] [address] Prasad Burgos MD [address] [place] [address] documented as of this encounter Visit Diagnoses Not on filedocumented in this encounter Care Teams Preschool Teacher Relationship Specialty Start Date End Date Prasad Burgos MD [address] [place] [address] PCP - General Family Medicine 05/17/24 documented as of this encounter
--- OUTSIDE RECORDS SUMMARY | 2025-02-01 16:44 | XMS_ITS | Encounter Summary ---
Author Organization [facility] Address [address] [place] [address] Care Team Providers Care Legal Clerk Name Role Phone Prasad Burgos MD Primary Care Provider [phone] Reason for Visit * Reason Comments Med Refill Encounter Details Date Type Department Care Team (Late st Contact Info) Description 09/20/2024 Refill [facility] [place] [address] [facility] [address], [address] [place] [address] Randall Newell MD [address] [place] [address] Social History Tobacco Use Types [...] place to sleep or slept in a [facility] (including now)? No 09/21/2023 CAGE ASSESSMENT Answer [...] drink first t fahad in the morning (EYE-HAND BOOTMAKER) to steady your nerves or to get rid of a hangover? 0 09/21/2023 CAGE Questionnaire Score 0 024 Utilities Answer Date Recorded In the past 12 months has th [employer], gas, oil, or water company threatened to [...] documented as of this encounter Care Teams Legal Clerk Relationship Specialty Start Date End Date Prasad Burgos MD [address] [place] [address] PCP - General 07/26/20 documented as of this encounter
--- OUTSIDE RECORDS SUMMARY | 2025-02-01 16:44 | XMS_ITS | Encounter Summary ---
Author Organization [facility] Address [address] [place] [address] Care Team Providers Care Hvac Project Engineer Name Role Phone Prasad Burgos MD Primary Care Provider [phone] Reason for Visit * Reason Comments Med Refill Encounter Details Date Type Department Care Team (Late st Contact Info) Description 07/13/2024 Refill [facility] [place] [address] [facility] [place] [address] Randall Newell MD [address] [place] [address] Social History Tobacco Use Types [...] place to sleep or slept in a usp (including now)? No 09/21/2023 CAGE ASSESSMENT Answer [...] drink first t fahad in the morning (EYE-SKIRT TRIMMER) to steady your nerves or to get rid of a hangover? 0 09/21/2023 CAGE Questionnaire Score 0 024 Utilities Answer Date Recorded In the past 12 months has th [employer], gas, oil, or water company threatened to [...] documented as of this encounter Care Teams Hvac Project Engineer Relationship Specialty Start Date End Date Prasad uBrgos MD [address] [place] [address] PCP - General 07/26/20 documented as of this encounter
--- OUTSIDE RECORDS SUMMARY | 2025-02-01 16:44 | XMS_ITS | Clinical Summary ---
Author Organization [facility] Address [address] [place] [address] Care Team Providers Care Rn Clinical Resource Name Role Phone Prasad Burgos MD Primary Care Provider [phone] Allergies Active Allergy Reactions Criticality Noted Date [...] Active Problems Problem Noted Date Diagnosed Date Shortness of breath 09/20/2023 Resolved Problems Problem Noted Date Diagnosed Date Resolved Date Severe protein-calorie malnutrition 09/23/2023 12/03/2024 Family History Medical History Relation Name Comments [...] place to sleep or slept in a [place] [facility] (including now)? No 09/21/2023 CAGE ASSESSMENT Answer [...] drink first t fahad in the morning (EYE-WALLPAPER INSTALLER) to steady your nerves or to get [...] r (1 - 1-dose 75+ series) 09/12/2011 [id number] Vaccine (1 - 20 25-26 season) 2024 UKY-Influenza Vaccine (#1) 2024 HPV [...] age to complete this topic Insurance MEDICARE [facility] [place] [place] [address] Advance Directives * DNR/DNI (Latest Code Status on File) Date Activated Date Inactivated Comments 09/20/2023 5:22 PM 09/23/2023 7:02 PM Question Answer Comments DNR determined on/before admission date? Yes Patient has decision-making capacity? Yes Care Teams Rn Clinical Resource Relationship Specialty Start Date End Date Prasad Burgos MD 210 [facility] [place] [address] PCP - General 07/26/20
== END 2025-02-01 23:59 | disposition home or self-care (01) ==
LOC: LAB 14:24
PROVIDERS: PCP Family Medicine; Visit Provider Family Medicine
DX: R19.7 Diarrhea, unspecified (principal)
CPT/HCPCS: 80053; 84439; 84443; 85027; 85651

== ENCOUNTER 2025-02-06 10:42 | Outpatient (CLI) | payer MEDICARE, OTHER, SELFPAY ==
--- OUTSIDE RECORDS SUMMARY | 2024-12-22 12:45 | XMS_ITS | Encounter Summary ---
[facility] Address [address] [place] [address] Care Team Providers Care Hardscape Foreman Name Role Phone Prasad Burgos MD Primary Care Provider + Reason for Visit * Reason Comments Diarrhea For the past week Encounter Details Date Type Department Care Team (Late st Contact Info) Description 12/22/2024 1:45 PM EDT Office Visit [facility] [address] [place] [address] Prasad Burgos MD [address] [place] [address] Colitis (Primary Dx); Pressure injury of sacral region, stage 1; Urinary frequency Social History Tobacco Use Types Packs/Day Years Used Date Smoking Tobacco: Former Cigarettes 1 70 1 948 - 2018 Smokeless Tobacco: Former Chew Quit: 2018 Alcohol [...] on file Sexual Orientation Not on file documented as of this encounter Last Filed Vital Signs Vital Sign [place] Time Taken Comments Blood Pressure 100/50 12/22/2024 1:42 PM EDT Pulse 73 12/22/2024 1:42 PM EDT Temperature - - Respiratory Rate 24 12/22/2024 1:42 PM EDT Oxygen Saturation 96% 12/22/2024 1:42 PM EDT Inhaled Oxygen Concentration - - Weight 64.3 kg (141 lb 12.8 oz) 12/22/2024 1:42 PM EDT Height 170.2 cm (5' 7 ) 12/22/2024 1:42 PM EDT Body Mass Index 22.21 12/22/2024 1:42 PM EDT documented in this encounter Progress Notes * Prasad Burgos MD - 12/22/2024 1:45 PM EDT Chief Complaint Patient presents with Diarrhea For the past week Subjective Al Harman is a 89 y.o. who presents for diarrhea for 1 week that may or may not be improving depending on whether you ask the patient or his . He feels well except for some lower abdominal pain. He denies fevers or chills. He claims usually taking 2 doses of Pepto-Bismol will resolve any diarrhea he has. This has not been the case. Diarrhea has occurred so frequently that patient also bel ieves he is developed a hemorrhoid. In the last few days he notes increased urinary frequency but feels like he empties his bladder adequately. Finally he has a tender lesion in his sacrum that he cannot get to heal despite use of various qtyj-gan-epypihp creams or ointments such as Neosporin or hydrocortisone 10 Objective Vital Signs: BP 100/50 Pulse 73 Resp 24 Ht 170.2 cm (67 ) Wt 64.3 kg (141 lb 12.8 oz) SpO2 96% BMI 22.21 kg/m?? Physical Exam Vitals reviewed. Constitutional: Appearance: Normal appearance. Abdominal: General: Abdomen is flat. Bowel sounds are normal. Tenderness: There is abdominal tenderness. Genitourinary: Comments: No hemorrhoids Skin: Comments: Erythema over the sacrum with linear breakdown of the skin just to the right of the sacrum. Neurological: Mental Status: He is alert. Result Review The following data was reviewed by: Prasad Burgos MD on 12/22/2024: UA 12/22/2024 14:02 Urinalysis Ketones, UA Negative Leukocytes, UA Negative Assessment and Plan Diagnoses and all orders for this visit: 1. Colitis (Primary) - metroNIDAZOLE (FLAGYL) 500 MG tablet; Take 1 tablet by mouth 3 (Three) Times a Day. Dispense: 21 tablet; Refill: 0 2. Pressure injury of sacral region, stage 1 3. Urinary frequency - POC Urinalysis Dipstick Plan 1. Patient restarted on metronidazole for his mild colitis. He may continue Pepto-Bismol 2. For his stage I pressure injury of the sacrum I recommended offloading and use of zinc oxide as a barrier cream 3. Urinalysis was unremarkable and I suspect his urinary frequency is due to mild bladder irritation from his colitis. Follow Up No follow-ups on file. Patient was given instructions and counseling regarding his condition or for health maintenance advice. Please see specific information pulled into the AVS if appropriate. documented in this encounter Plan of Treatment Upcoming Encounters Date Type Department Care Team (Late st Contact Info) Description 02/23/2025 10:00 AM EST Office Visit [facility] [address] [facility] [place] [address] Prasad Burgos MD [address] [facility] [place] [address] documented as of this encounter Procedures Procedure Name Priority Date/Time Associated Diagnosis Comments POCT URINALYSIS DIPSTICK, MANUAL Routine 12/22/2024 2:02 PM EDT Urinary frequency documented in this encounter Results * (ABNORMAL) POC Urinalysis Dipstick (12/22/2024 2:02 PM EDT) Color Yellow Yellow, Straw, Dark Yellow, Livia [facility] Clarity, UA Clear Clear [facility] Glucose, UA Negative Negative mg/dL [facility] Bilirubin Negative Negative [facility] Ketones, UA Negative Negative [facility] Specific [place] 1.025 1.005 - 1.030 [facility] Blood, UA Negative Negative [facility] pH, Urine 6.0 5.0 - 8.0 [facility] Protein, POC Trace(A) Negative mg/dL [facility] Urobilinogen, UA Normal Normal, 0.2 E.U./dL [facility] Leukocytes Negative Negative [facility] Nitrite, UA Negative Negative [facility] Urine 12/22/2024 2:02 PM EDT Prasad Burgos MD POINT OF CARE TEST ORDER VINEET Final Result [facility]
[address] [place] [address], documented in this encounter Visit Diagnoses Diagnosis Colitis- Primary Other and unspecified noninfectious gastroenteritis and colitis Pressure injury of sacral region, stage 1 Urinary frequency documented in this encounter Care Teams Hardscape Foreman Relationship Specialty Start Date End Date Prasad Burgos MD [address] [place] [address] PCP - General Family Medicine 05/17/24 documented as of this encounter
--- OUTSIDE RECORDS SUMMARY | 2025-02-01 12:15 | XMS_ITS | Encounter Summary ---
Author Organization [facility] Address [address] [place] [address] Care Team Providers Care Supervisor Fiberglass Boat Assembly Name Role Phone Prasad Burgos MD Primary Care Provider + Reason for Visit * Reason Comments Diarrhea Returned several day s ago. Pt is currently taking Pepto and Metamucil Encounter Details Date Type Department Care Team (Late st Contact Info) Description 02/01/2025 12:15 PM EST Office Visit [facility] [address] [place] [address] Prasad Burgos MD [address] [place] [address] Diarrhea, unspecified type (Primary Dx) Social History Tobacco Use Types Packs/Day Years [...] Sign [place] Time Taken Comments Blood Pressure 110/50 02/01/2025 11:56 AM EST Pulse 66 02/01/2025 11:56 AM EST Temperature 36.2 C (97.1 F) 02/01/2025 11:56 AM EST Respiratory Rate 24 02/01/2025 11:56 AM EST Oxygen Saturation 98% 02/01/2025 11:56 AM EST Inhaled Oxygen Concentration - - Weight 64.1 kg (141 lb 6.4 oz) 02/01/2025 11:56 AM EST Height 170.2 cm (5' 7 ) 02/01/2025 11:56 AM EST Body Mass Index 22.15 02/01/2025 11:56 AM EST documented in this encounter Progress Notes * Prasad Burgos MD - 02/01/2025 12:15 PM EST Chief Complaint Patient presents with Diarrhea Returned several days ago. Pt is currently taking Pepto and Metamucil Subjective Al Harman is a 89 y.o. who presents for recurrence of loose stools. Patient had been seen 6 weeks ago and reported diarrhea that did not respond to his usual treatment of Pepto-Bismol. Patient was given 7 days of metronidazole with resolution of diarrhea. About 7 to 10 days ago stools became loose again. At this suggestion of one of his cardiology providers he began using Metamucil which seems to have helped. His accompanies him and states when loose stools had returned at their worsthe was having 10 bowel movements per day. Patient denies fevers or chills. Weight is stable compared to his last visit. He started taking amiodarone about 1 week ago Objective Vital Signs: BP 110/50 Pulse 66 Temp 97.1 ??F (36.2 ??C) Resp 24 Ht 170.2 cm (67 ) Wt 64.1 kg (141 lb 6.4 oz) SpO2 98% BMI 22.15 kg/m?? Physical Exam Vitals reviewed. Constitutional: Appearance: Normal appearance. Abdominal: General: Abdomen is flat. Bowel sounds are normal. There is no distension. Palpations: Abdomen is soft. Tenderness: There is no abdominal tenderness. Neurological: Mental Status: He is alert. Result Review Assessment and Plan Diagnoses and all orders for this visit: 1. Diarrhea, unspecified type (Primary) - Cancel: CBC (No Diff) - Cancel: TSH Rfx On Abnormal To Free T4 - Cancel: Fecal Leukocytes - Stool, Per Rectum; Future - Occult Blood X 1, Stool - Stool, Per Rectum; Future - Cancel: Sedimentation Rate - Cancel: Comprehensive Metabolic Panel - Fecal Leukocytes - Stool, Per Rectum; Future - Comprehensive Metabolic Panel; Future - Sedimentation Rate; Future - CBC (No Diff); Future - TSH Rfx On Abnormal To Free T4; Future Plan: We will obtain labs as part of his evaluation for diarrhea in addition to stool studies. Patient may need GI evaluation at [facility] as well. Follow Up No follow-ups on file. Patient was given instructions and counseling regarding his condition or for health maintenance advice. Please see specific information pulled into the AVS if appropriate. documented in this encounter Plan of Treatment Upcoming Encounters Date Type Department Care Team (Late st Contact Info) Description 02/23/2025 10:00 AM EST Office Visit [facility] [address] [facility] [place] [phone] Prasad Burgos MD [address] [facility] [place] [address] Scheduled Orders Name Type Priority Associated Diagnoses Orde r Schedule Occult Blood X 1, Stool - Stool, Per Rectum Lab Routine Diarrhea, unspecified type Expected: 02/02/2025 (Approximate), Expires: 05/04/2026 Fecal Leukocytes - Stool, Per Rectum Microbiology Routine Diarrhea, unspecified type Expected: 02/01/2025 (Approximate), Expires: 05/04/2026 Comprehensive Metabolic Panel Lab Routine Diarrhea, unspecified type Expected: 02/01/2025 (Approximate), Expires: 05/04/2026 Sedimentation Rate Lab Routine Diarrhea, unspecified type Expected: 02/01/2025 (Approximate), Expires: 05/04/2026 CBC (No Diff) Lab Routine Diarrhea, unspecified type Expected: 02/01/2025 (Approximate), Expires: 05/04/2026 TSH Rfx On Abnormal To Free T4 Lab Routine Diarrhea, unspecified type Expected: 02/01/2025 (Approximate), Expires: 05/04/2026 documented as of this encounter Visit Diagnoses Diagnosis Diarrhea, unspecified type- Primary documented in this encounter Care Teams Supervisor Fiberglass Boat Assembly Relationship Specialty Start Date End Date Prasad Burgos MD [address] [place] [address] PCP - General Family Medicine 05/17/24 documented as of this encounter
--- OUTSIDE RECORDS SUMMARY | 2025-02-06 10:49 | XMS_ITS | Clinical Summary ---
Author Organization [facility] Address [address] [facility] [address] [place] [address] Phone Care Team Providers Care Director Of Radiology Name Role Phone Unavailable Unavailable Conditions or Problems No information available. Medications No information available. Medications Administered No information available. Allergies, Adverse Reactions, Alerts No information available. Results No information available. Plan of Care No information available. Procedures No information available. Vital Signs No information available. Immunizations No information available. Advance Directives No information available.
--- OUTSIDE RECORDS SUMMARY | 2025-02-06 10:50 | XMS_ITS | Encounter Summary ---
Author Organization [facility] Address [address] [place] [address] Care Team Providers Care Photography Coordinator Name Role Phone Prasad Burgos MD Primary Care Provider + Encounter Details Date Type Department Care Team (Late st Contact Info) Description 02/05/2025 Results Follow-Up [facility] 210 [facility] [place] [address] Prasad Burgos MD 210 [facility] [place] [address] Social History Tobacco Use Types Packs/Day Years [...] 10:00 AM EST Office Visit [facility] [address] [facility] [place] [address] Prasad Burgos MD 210 [facility] [place] [address] documented as of this encounter Visit Diagnoses Not on filedocumented in this encounter Care Teams Photography Coordinator Relationship Specialty Start Date End Date Prasad Burgos MD [address] [place] [address] PCP - General Family Medicine 05/17/24 documented as of this encounter
--- OUTSIDE RECORDS SUMMARY | 2025-02-06 10:50 | XMS_ITS | Encounter Summary ---
Author Organization [facility] Address [address] [place] [address] Care Team Providers Care Lead Trainer Name Role Phone Prasad Burgos MD Primary Care Provider Encounter Details Date Type Department Care Team (Late st Contact Info) Description 09/08/2023 Orders Only External Location [address] [place] [address] Mitch Taylor PA [address] [place] [address] [address] Social History Tobacco Use Types [...] on filedocumented in this encounter Care Teams Lead Trainer Relationship Specialty Start Date End Date Prasad Burgos MD [facility] [place] [address] PCP - General 07/26/20 documented as of this encounter
--- OUTSIDE RECORDS SUMMARY | 2025-02-06 10:50 | XMS_ITS | Clinical Summary ---
Author Organization [facility] Address [address] [place] [id number] Care Team Providers Care Gum Machine Filler Name Role Phone Prasad Burgos MD Primary [...] Encounters Date Type Department Care Team Description 02/05/2025 Results Follow-Up [facility] [address] [place] [place] [address] Prasad Burgos MD 02/01/2025 12:15 PM EST Office Visit [facility] [address] [address] Prasad Burgos MD Diarrhea, unspecified type (Primary Dx) 02/01/2025 Travel 12/22/2024 1:45 PM EDT Office Visit [facility] [address] [address] Prasad Burgos MD Colitis (Primary Dx); Pressure [...] 02/23/2025 10:00 AM EST Office Visit [facility] [address] [facility] [place] [address] Prasad Burgos MD [address] [place] [address] Health Maintenance Due Date Last Done [...] Date/Time Associated Diagnosis Comments SCANNED - LABS 02/01/2025 POCT URINALYSIS DIPSTICK, MANUAL Routine 12/22/2024 2:02 PM EDT Urinary frequency SCANNED - LABS 11/07/2024 SCANNED - IMAGING 11/07/2024 from Last 3 Months Results * LABS SCANNED (02/01/2025) Only the most recent of2 resultswithin the time period is included. Prasad Burgos MD LAB BLOOD ORDERABLES [facility] Result * (ABNORMAL) POC Urinalysis Dipstick (12/22/2024 2:02 PM EDT) Color Yellow Yellow, Straw, Dark Yellow, Livia [facility] Clarity, UA Clear Clear [facility] Glucose, UA Negative Negative mg/dL [facility] Bilirubin Negative Negative [facility] Ketones, UA Negative Negative [facility] Specific [place] 1.025 1.005 - 1.030 [facility] Blood, UA Negative Negative [facility] pH, Urine 6.0 5.0 - 8.0 [facility] Protein, POC Trace(A) Negative mg/dL [facility] Urobilinogen, UA Normal Normal, 0.2 E.U./dL [facility] Leukocytes Negative Negative [facility] Nitrite, UA Negative Negative [facility] Urine 12/22/2024 2:02 PM EDT Prasad Burgos MD POINT OF CARE TEST ORDER VINEET Final Result [facility]
[address] [place] [address], * IMAGING SCANNED (11/07/2024) Anatomical Region Laterality Modality Radiographic Beth ging Prasad Burgos MD IMG DIAGNOSTIC IMAGING O RDERABLES Final Result from Last 3 Months Insurance MEDICARE A & B Member Subscriber Plan / Payer (Ef fective 2001-Present) Name:Al Harman Member ID:[id number] Relation to Subscriber:Self Name:Al Harman Subscriber ID:[id number] Payer ID:[id number] Group ID:Not on file Type:Not on file Address: [address] [employer] Care Teams Gum Machine Filler Relationship Specialty Start Date End Date Prasad Burgos MD [address] [address] PCP - General Family Medicine 05/17/24
--- OUTSIDE RECORDS SUMMARY | 2025-02-06 10:50 | XMS_ITS | Encounter Summary ---
Author Organization [facility] Address [address] [place] [address] Care Team Providers Care Leather Drier Name Role Phone Prasad Burgos MD Primary Care Provider [phone] Reason for Visit * Reason Comments Med Refill Encounter Details Date Type Department Care Team (Late st Contact Info) Description 09/20/2024 Refill [facility] [place] [address] [facility] [address] [place] [address] Randall Newell MD [address] [place] [address] Social History Tobacco Use Types [...] drink first t fahad in the morning (EYE-ENGINEERING ADMINISTRATOR) to steady your nerves or to get rid of a hangover? 0 09/21/2023 CAGE Questionnaire Score 0 024 Utilities Answer Date Recorded In the past 12 months has th [employer], gas, oil, or water company threatened to [...] documented as of this encounter Care Teams Leather Drier Relationship Specialty Start Date End Date Prasad Burgos MD [address] [place] [address] PCP - General 07/26/20 documented as of this encounter
--- OUTSIDE RECORDS SUMMARY | 2025-02-06 10:50 | XMS_ITS | Clinical Summary ---
Author Organization [facility] Address [address] [place] [address] Care Team Providers Care Senior Media Director Name Role Phone Prasad Burgos MD Primary Care Provider [phone] Allergies Active Allergy Reactions Criticality Noted Date [...] drink first t fahad in the morning (EYE-RECYCLING ASSISTANT) to steady your nerves or to get [...] r (1 - 1-dose 75+ series) 09/12/2011 [id number] Vaccine (1 - 20 25-26 season) 2024 [...] age to complete this topic [place] [address] Advance Directives * DNR/DNI (Latest Code Status on File) Date Activated Date Inactivated Comments 09/20/2023 5:22 PM 09/23/2023 7:02 PM Question Answer Comments DNR determined on/before admission date? Yes Patient has decision-making capacity? Yes Care Teams Senior Media Director Relationship Specialty Start Date End Date Prasad Burgos MD [address] [facility] [place] [address] PCP - General 07/26/20
--- OUTSIDE RECORDS SUMMARY | 2025-02-06 10:50 | XMS_ITS | Encounter Summary ---
Author Organization [facility] Address [address] [place] [address] Care Team Providers Care It Auditor Name Role Phone Prasad Burgos MD Primary [...] Description 02/23/2025 10:00 AM EST Office Visit [facility] [address] [place] [address] Prasad Burgos MD [address] [place] [address] documented as of this encounter Visit Diagnoses Not on filedocumented in this encounter Care Teams It Auditor Relationship Specialty Start Date End Date Prasad Burgos MD [address] [place] [address] PCP - General Family Medicine 05/17/24 documented as of this encounter
--- OUTSIDE RECORDS SUMMARY | 2025-02-06 10:50 | XMS_ITS | Encounter Summary ---
Author Organization [facility] Address [address] [place] [address] Care Team Providers Care Commercial Energy Rater Name Role Phone Prasad Burgos MD Primary [...] Description 02/23/2025 10:00 AM EST Office Visit [facility] [address] [place] [address] Prasad Burgos MD [address] [place] [address] documented as of this encounter Visit Diagnoses Not on filedocumented in this encounter Care Teams Commercial Energy Rater Relationship Specialty Start Date End Date Prasad Burgos MD [address] [place] [address] PCP - General Family Medicine 05/17/24 documented as of this encounter
--- OUTSIDE RECORDS SUMMARY | 2025-02-06 10:50 | XMS_ITS | Encounter Summary ---
Author Organization Healthcare Address [address] [place] [address] Care Team Providers Care Director [employer] Name Role Phone Prasad Burgos MD Primary Care Provider [phone] Reason for Visit * Reason Comments Med Refill Encounter Details Date Type Department Care Team (Late st Contact Info) Description 07/13/2024 Refill [facility] [place] [address], [address] [place] [address] Randall Newell MD [address] [place] [address] Social History Tobacco Use Types [...] first t fahad in the morning (EYE-INDUSTRIAL AUTOMATION SPECIALIST) to steady your nerves or to get rid of a hangover? 0 09/21/2023 CAGE Questionnaire Score 0 024 Utilities Answer Date Recorded In the past 12 months has th [employer], gas, oil, or water company threatened to [...] documented as of this encounter Care Teams Director [employer] Relationship Specialty Start Date End Date Prasad Burgos MD [address] [place] [address] PCP - General 07/26/20 documented as of this encounter
[2025-02-06 11:20] LABS: Occult Blood,Stool Negative (Negative)
== END 2025-02-06 23:59 | disposition home or self-care (01) ==
LOC: LAB 10:43
PROVIDERS: PCP Family Medicine; Visit Provider Family Medicine
DX: R19.7 Diarrhea, unspecified (principal)
CPT/HCPCS: 82272; 87205; G0328

== ENCOUNTER 2025-03-13 12:01 | Outpatient (CLI) | payer MEDICARE, OTHER, SELFPAY ==
--- OUTSIDE RECORDS SUMMARY | 2025-02-01 12:15 | XMS_ITS | Encounter Summary ---
Author Organization [facility] Address [address] [place] [address] Care Team Providers Care Minibus Driver Name Role Phone Prasad Burgos MD Primary Care Provider + Reason for Visit * Reason Comments Diarrhea Returned several day s ago. Pt is currently taking Pepto and Metamucil Encounter Details Date Type Department Care Team (Late st Contact Info) Description 02/01/2025 12:15 PM EST Office Visit [facility] [address] [place] [address] Prasad Burgos MD [address] [place] [address] Diarrhea, unspecified type (Primary Dx) [...] studies. Patient may need GI evaluation at [facility] as well. Follow Up No follow-ups on file. Patient was given instructions and counseling regarding his condition or for health maintenance advice. Please see specific information pulled into the AVS if appropriate. documented in this encounter Plan of Treatment Scheduled Orders Name Type Priority Associated Diagnoses Orde r Schedule Fecal Leukocytes - Stool, Per Rectum Microbiology [...] Expires: 05/04/2026 documented as of this encounter Results * Occult Blood X 1, Stool - Stool, Per Rectum (02/06/2025) Stool Specimen from rectum / Unknown us Prasad Burgos MD BODY FLUIDS AND STOOLS O RDERABLES Final Result [facility]
[address] [place] [address], documented in this encounter Visit Diagnoses Diagnosis Diarrhea, unspecified type- Primary documented in this encounter Care Teams Minibus Driver Relationship Specialty Start Date End Date Prasad Burgos MD [address] [place] [address] PCP - General Family Medicine 05/17/24 documented as of this encounter
--- OUTSIDE RECORDS SUMMARY | 2025-03-13 12:05 | XMS_ITS | Encounter Summary ---
Author Organization [facility] Address [address] [place] [address] Care Team Providers Care Manager Product Support Name Role Phone Prasad Burgos MD Primary [...] on filedocumented in this encounter Care Teams Manager Product Support Relationship Specialty Start Date End Date Prasad Burgos MD [address] [place] [address] PCP - General Family Medicine 05/17/24 documented as of this encounter
--- OUTSIDE RECORDS SUMMARY | 2025-03-13 12:05 | XMS_ITS | Clinical Summary ---
Author Organization [facility] Address [address] [place] [id number] Care Team Providers Care Steam Box Tender Name Role Phone Prasad Burgos MD Primary [...] Encounters Date Type Department Care Team Description 02/12/2025 Results Follow-Up [facility] [address] [place] [address] Prasad Burgos MD 02/05/2025 Results Follow-Up [facility] [address] [place] [address] Prasad Burgos MD 02/01/2025 12:15 PM EST Office Visit [facility] [address] [address] Prasad Burgos MD Diarrhea, unspecified type (Primary Dx) 02/01/2025 Travel 12/22/2024 1:45 PM EDT Office Visit [facility] [address] [place] [address] Prasad Burgos MD Colitis (Primary Dx); Pressure injury of sacral region, stage 1; Urinary frequency 12/22/2024 Travel from Last 3 Months Family History Medical History Relation Name Comments Arthritis Father Heart attack Father No Known Problems Mother Relation Name Status Comments Father Mother Social History Tobacco Use Types Packs/Day Years Used Date Smoking Tobacco: Former Cigarettes 1 70 1 - 2017 Smokeless Tobacco: Former Chew Quit: [...] 02/01/2025 11:56 AM EST Plan of Treatment Health Maintenance Due Date Last Done Comments COVID-19 Vaccine (#1) 1941 TDAP/TD VACCINES (1 - Tdap) 09/12/1955 ZOSTER VACCINE (1 of 2) 1986 RSV Vaccine - Adults (1 - 1- dose 75+ series) 09/12/2011 INFLUENZA VACCINE 06/20/2025 Postponed from 10/13/2024 (Patient Refused) Pneumococcal Vaccine 50+ (1 of 2 - PCV) 06/20/2025 Postponed from 09/11 (Patient Refused) ANNUAL WELLNESS VISIT 08/03/2025 08/03/2024 Procedures Procedure Name Priority Date/Time Associated Diagnosis Comments OCCULT BLOOD X 1, STOOL Routine 02/06/2025 Diarrhea, unspecified type SCANNED - LABS 02/01/2025 POCT URINALYSIS DIPSTICK, MANUAL Routine 12/22/2024 2:02 PM EDT Urinary frequency from Last 3 Months Results * Occult Blood X 1, Stool - Stool, Per Rectum (02/06/2025) Stool Specimen from rectum / Unknown us Prasad Burgos MD BODY FLUIDS AND STOOLS O RDERABLES Final Result [facility]
[address] [place] [address], * LABS SCANNED (02/01/2025) us Prasad Burgos MD LAB BLOOD ORDERABLES Fin al Result * (ABNORMAL) POC Urinalysis Dipstick (12/22/2024 2:02 PM EDT) Color Yellow Yellow, Straw, Dark Yellow, Livia [facility] Clarity, UA Clear Clear [facility] Glucose, UA Negative Negative mg/dL [facility] Bilirubin Negative Negative [facility] Ketones, UA Negative Negative [facility] Specific [place] 1.025 1.005 - 1.030 [facility] Blood, UA Negative Negative [facility] pH, Urine 6.0 5.0 - 8.0 [facility] Protein, POC Trace(A) Negative mg/dL [facility] Urobilinogen, UA Normal Normal, 0.2 E.U./dL [facility] Leukocytes Negative Negative [facility] Nitrite, UA Negative Negative [facility] Urine 12/22/2024 2:02 PM EDT Prasad Burgos MD POINT OF CARE TEST ORDER VINEET Final Result [facility]
[address] [place] [address], from Last 3 Months Insurance MEDICARE A & B Member Subscriber Plan / Payer (Ef fective 2001-Present) Name:Al Harman Member ID:[id number] Relation to Subscriber:Self Name:Al Harman Subscriber ID:[id number] Payer ID:[id number] Group ID:Not on file Type:Not on file Address: [facility] [id number] [employer] Care Teams Steam Box Tender Relationship Specialty Start Date End Date Prasad Burgos MD [address] [place] [address] PCP - General Family Medicine 05/17/24
--- OUTSIDE RECORDS SUMMARY | 2025-03-13 12:05 | XMS_ITS | Clinical Summary ---
Author Organization [facility] Address [address] [place] [address] Phone Care Team Providers Care Director Hospice Operations Name Role Phone Unavailable Unavailable Conditions or Problems No information available. Medications No information available. Medications Administered No information available. Allergies, Adverse Reactions, Alerts No information available. Results No information available. Plan of Care No information available. Procedures No information available. Vital Signs No information available. Immunizations No information available. Advance Directives No information available.
--- OUTSIDE RECORDS SUMMARY | 2025-03-13 12:05 | XMS_ITS | Encounter Summary ---
Author Organization Healthcare Address [address] [place] [address] Care Team Providers Care Publications Sales Representative Name Role Phone Prasad Burgos MD Primary Care Provider [phone] Reason for Visit * Reason Comments Med Refill Encounter Details Date Type Department Care Team (Late st Contact Info) Description 07/13/2024 Refill [facility] [place] [address] [facility] [address], [address] [place] [address] Randall Newell MD [address] [place] [address] Social History Tobacco Use Types [...] place to sleep or slept in a halfway (including now)? 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 0 09/21/2023 CAGE Questionnaire Score 0 024 Utilities Answer Date Recorded In the past 12 months has th [employer], gas, oil, or water company threatened to [...] documented as of this encounter Care Teams Publications Sales Representative Relationship Specialty Start Date End Date Prasad Burgos MD [address] [place] [address] PCP - General 07/26/20 documented as of this encounter
--- OUTSIDE RECORDS SUMMARY | 2025-03-13 12:05 | XMS_ITS | Clinical Summary ---
Author Organization [facility] Address [address] [place] [id number] Care Team Providers Care Linseed Oil Press Tender Name Role Phone Prasad Burgos MD Primary Care Provider Allergies Active Allergy Reactions Criticality Noted Date [...] place to sleep or slept in a alf (including now)? 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 Yes Patient has decision-making capacity? Yes Care Teams Linseed Oil Press Tender Relationship Specialty Start Date End Date Prasad Burgos MD [address] [place] [address] PCP - General 07/26/20
--- OUTSIDE RECORDS SUMMARY | 2025-03-13 12:05 | XMS_ITS | Encounter Summary ---
Author Organization [facility] Address [address] [place] [address] Care Team Providers Care Auctioneer Art Name Role Phone Prasad Burgos MD Primary Care Provider + Encounter Details Date Type Department Care Team (Late st Contact Info) Description 02/12/2025 Results Follow-Up [facility] [address] [place] [address] Prasad Burgos MD [address] [place] [address] Social History Tobacco Use Types [...] on filedocumented in this encounter Care Teams Auctioneer Art Relationship Specialty Start Date End Date Prasad Burgos MD [address] [place] [address] PCP - General Family Medicine 05/17/24 documented as of this encounter
--- OUTSIDE RECORDS SUMMARY | 2025-03-13 12:05 | XMS_ITS | Encounter Summary ---
Author Organization [facility] Address [address] [place] [address] Care Team Providers Care Director Of Distance Learning Name Role Phone Prasad Burgos MD Primary Care Provider + Encounter Details Date Type Department Care Team (Late st Contact Info) Description 02/05/2025 Results Follow-Up [facility] [address] [place] [address] Prasad Burgos MD [address] [place] [address] Social History Tobacco Use Types [...] on filedocumented in this encounter Care Teams Director Of Distance Learning Relationship Specialty Start Date End Date Prasad Burgos MD [address] [place] [address] PCP - General Family Medicine 05/17/24 documented as of this encounter
--- OUTSIDE RECORDS SUMMARY | 2025-03-13 12:05 | XMS_ITS | Encounter Summary ---
Author Organization Healthcare Address [address] [place] [address] Care Team Providers Care Briar Cutter Name Role Phone Prasad Burgos MD Primary Care Provider [phone] Reason for Visit * Reason Comments Med Refill Encounter Details Date Type Department Care Team (Late st Contact Info) Description 09/20/2024 Refill [place] [place] [address] [facility] 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 0 09/21/2023 CAGE Questionnaire Score 0 024 Utilities Answer Date Recorded In the past 12 months has th [employer], gas, oil, or water company threatened to [...] documented as of this encounter Care Teams Briar Cutter Relationship Specialty Start Date End Date Prasad Burgos MD [address] [place] [address] PCP - General 07/26/20 documented as of this encounter
--- OUTSIDE RECORDS SUMMARY | 2025-03-13 12:05 | XMS_ITS | Encounter Summary ---
Author Organization [facility] Address [address] [place] [address] Care Team Providers Care Records Management Assistant Name Role Phone Prasad Burgos MD Primary Care Provider Encounter Details Date Type Department Care Team (Late st Contact Info) Description 09/08/2023 Orders Only External Location [address] [place] [address] Mitch Taylor PA [address] [place] [address] [address] Social History Tobacco Use Types [...] on filedocumented in this encounter Care Teams Records Management Assistant Relationship Specialty Start Date End Date Prasad Burgos MD [facility] [place] [address] PCP - General 07/26/20 documented as of this encounter
[2025-03-13 12:11] LABS: Microscopic, Urine URINE MICROSCOPIC (MICROSCOPIC)
[2025-03-13 12:31] LABS: Bilirubin,Urine Negative (Negative); Glucose,Urine (UA) Negative (Negative); Ketones,Urine Negative (Negative); Leukocyte Esterase,Urine TRACE (Negative); PH,Urine 6.5 (5.0-8.5); Protein,Urine TRACE (Negative); Specific Gravity, Urine 1.020 (1.005-1.030); Urobilinogen,Urine 1.0 EU/dl (0.2)
[2025-03-13 12:34] LABS: Color,Urine Dark Yellow (Yellow)
[2025-03-13 12:37] LABS: Hematocrit 45.8 % (42.0-52.0); Hemoglobin 14.4 g/dL (14.1-18.0); Immature Granulocytes % 0.3 %; Mean Corpuscular HGB Conc 31.4 g/dL (31.8-35.4); Mean Corpuscular Hemoglobin 30.0 pg (27.0-31.2); Mean Corpuscular Volume 95.4 fl (80-94); Nucleated Red Blood Cells % 0 %; Platelet Count 215 K/mm3 (142-424); Red Blood Count 4.80 M/mm3 (4.60-6.20); Red Cell Distribution Width-SD 53.0 fL; White Blood Count 8.8 K/mm3 (4.8-10.8)
[2025-03-13 12:56] LABS: Alanine Aminotransferase 12 U/L (12-78); Albumin Level 3.5 g/dl (3.5-5.0); Alkaline Phosphatase 96 U/L (38-126); Aspartate Amino Transferase 19 U/L (17-59); Bilirubin,Direct 0.2 mg/dl (0.0-0.4); Bilirubin,Indirect 0.8 mg/dL (0.0-0.9); Bilirubin,Total 1.0 mg/dl (0.2-1.3); Bilirubin,Unconjugated 0.8 mg/dL (0.0-1.1); Cholesterol 158 mg/dl (140-200); HDL Cholesterol 41 mg/dl (40-60); Total Protein,Serum 5.8 g/dl (6.3-8.2); Triglycerides 87 mg/dl (30-150)
[2025-03-13 12:58] LABS: Albumin Level 3.4 g/dl (3.5-5.0); Anion Gap 11.0 mEq/L (5-15); Blood Urea Nitrogen 29 mg/dl (9-20); Calcium 8.9 mg/dl (8.4-10.2); Carbon Dioxide 28 mmol/L (22.0-30.0); Chloride 104 mmol/L (98-107); Creatinine,Serum 1.80 mg/dl (0.66-1.25); Estimated Glomerular Filt Rate 36 ml/min (>60); GFR (African American) 43 ML/MIN (>60); Glucose 120 mg/dl (74-100); Phosphorous 4.4 mg/dl (2.5-4.5); Potassium 4.0 mmoL/L (3.5-5.1); Sodium 139 mmol/L (136-145)
[2025-03-13 13:11] LABS: Bacteria,Urine 1+ /lpf; Mucus,Urine 3+ /lpf; Squamous Epithelial Cell,Urine Occasional #/hpf (0-5)
[2025-03-13 13:13] LABS: 25-OH Vitamin D, Total 65.4 ng/mL (30-100)
[2025-03-13 13:19] LABS: RBC Morphology Normal; Total Cells Counted 100
== END 2025-03-13 23:59 | disposition home or self-care (01) ==
LOC: LAB 12:02
PROVIDERS: Physician Assistant; PCP Family Medicine; Visit Provider Internal Medicine Nephrology
DX: E78.2 Mixed hyperlipidemia (principal); I34.0 Nonrheumatic mitral (valve) insufficiency; I50.22 Chronic systolic (congestive) heart failure; I25.10 Atherosclerotic heart disease of native coronary artery without angina pectoris; E55.9 Vitamin D deficiency, unspecified; E21.3 Hyperparathyroidism, unspecified; N18.30 Chronic kidney disease, stage 3 unspecified
CPT/HCPCS: 80061; 80069; 80076; 81001; 82306; 83970; 85007; 85025